=== PATIENT | male | born 1935 | race Caucasian/White ===

== ENCOUNTER → 2017-05-22 17:43 | Outpatient (CLI) | payer MEDICARE, OTHER, SELFPAY | PROVIDERS: Family Provider Family Medicine; PCP Family Medicine; Visit Provider Internal Medicine Pulmonary Disease | DX: J45.909 Unspecified asthma, uncomplicated (principal) | CPT/HCPCS: 87070; 87077; 87186; 87205 ==

== ENCOUNTER → 2017-09-28 14:55 | Outpatient (CLI) | payer MEDICARE, OTHER, SELFPAY ==
[2017-09-28 16:08] LABS: PSA,Total- Diagnostic < 0.01 ng/mL (0.0-4.0)
== END ==
PROVIDERS: Family Provider Family Medicine; PCP Family Medicine
DX: C61 Malignant neoplasm of prostate (principal)
CPT/HCPCS: 36415; 84153

== ENCOUNTER → 2017-10-26 08:32 | Outpatient (CLI) | payer MEDICARE, OTHER, SELFPAY ==
[2017-10-26 10:23] LABS: Anion Gap 8 (5-15); BUN 28 mg/dL (7-18); BUN/Creat Ratio 25.2 RATIO (10-20); Calcium,Total 8.5 mg/dL (8.5-10.1); Chloride 108 mmol/L (98-107); Cholesterol 174 mg/dL (200); Creatinine, Serum 1.11 mg/dL (0.70-1.30); EST Glomerular Filtration Rate 67 mL/min (>60); Est Glom Filt Rate - Afr Amer 82 mL/min (>60); Glucose 89 mg/dL (74-106); High Density Lipoprotein 66 mg/dL; Potassium 4.4 mmol/L (3.5-5.1); Sodium Level 140 mmol/L (136-145); Triglycerides 87 mg/dL; Very Low Density Lipoprotein 17 mg/dL (5-40)
== END ==
PROVIDERS: Family Provider Family Medicine; PCP Family Medicine; Visit Provider Family Medicine
DX: I10 Essential (primary) hypertension (principal)
CPT/HCPCS: 36415; 80048; 80061

== ENCOUNTER → 2018-04-25 09:07 | Outpatient (CLI) | payer MEDICARE, OTHER, SELFPAY ==
[2018-03-21 16:05] VITALS: BMI 31.0
[2018-04-25 10:40] LABS: Anion Gap 7 (5-15); BUN 20 mg/dL (7-18); BUN/Creat Ratio 22.1 RATIO (10-20); Chloride 107 mmol/L (98-107); Cholesterol 149 mg/dL (200); Creatinine, Serum 0.91 mg/dL (0.70-1.30); EST Glomerular Filtration Rate 85 mL/min (>60); Est Glom Filt Rate - Afr Amer 103 mL/min (>60); Glucose 93 mg/dL (74-106); High Density Lipoprotein 63 mg/dL; Potassium 4.5 mmol/L (3.5-5.1); Sodium Level 139 mmol/L (136-145); Triglycerides 172 mg/dL; Very Low Density Lipoprotein 34 mg/dL (5-40)
--- OUTSIDE RECORDS SUMMARY | 2018-06-30 00:45 | XMS RPT_ITS ---
:1935 Author Organization OHIP Support Name Relationship Address Phone R Unavailable Unavailable Unavailable SLOAT, BROCK Unavailable [address] + [place] [address] R Unavailable Unavailable Unavailable SLOAT, BROCK Unavailable [address] + [place] [address] SLOAT, ONDINA Unavailable Unavailable + SLOAT, ONDINA Unavailable Unavailable + SLOAT, ONDINA Unavailable Unavailable + SLOAT, ONDINA Unavailable Unavailable + LAKEISHA KHAN Unavailable Unavailable + SLOAT, ONDINA Unavailable Unavailable + R Unavailable Unavailable Unavailable SLOAT, BROCK Unavailable [address] + [place] [address] R Unavailable Unavailable Unavailable SLOAT, BROCK Unavailable [address] + [place] [address] TR KHANDA Unavailable Unavailable + SLOAT, ONDINA Unavailable Unavailable + R Unavailable Unavailable Unavailable SLOAT, BROCK Unavailable [address] + [place] [address] R Unavailable Unavailable Unavailable SLOAT, BROCK Unavailable [address] + [place] [address] LAKEISHA KHAN Unavailable [address] [facility] [address] [place] [address] R Unavailable Unavailable Unavailable SLOAT, BROCK Unavailable [address] + [place] [address] Care Team Providers Name Role Phone Alin Joyner Attending Unavailable Alin Finley Referring Unavailable Alin Finley Attending Unavailable Alin Finley Primary Care Unavailable Prince Rahman Attending Unavailable Finley, Alin Primary Care Unavailable Erick Bennett Attending Unavailable Finley, Alin Referring Unavailable Finley, Alin Primary Care Unavailable Malia, Alin Primary Care Unavailable SHERRIE GUERRA Consulting Unavailable SHERRIE GUERRA Attending Unavailable SHERIRE GUERRA Referring Unavailable Finley, Alin Attending Unavailable Finley, Alin Primary Care Unavailable Alin Joyner Attending Unavailable Finley, Alin Referring Unavailable Finley, Alin Primary Care Unavailable Portillo, Dr. Hakan Caldwell Attending Unavailable Finley, Dr. Alin Morrison Primary Care Unavailable Love, Dr. Hazel Admitting Unavailable Love, Dr. Hazel Attending Unavailable Love, Dr. Hazel Referring Unavailable Finley, Dr. Alin Morrison Primary Care Unavailable Love, Dr. Hazel Admitting Unavailable Love, Dr. Hazel Referring Unavailable Finley, Dr. Alin Morrison Primary Care Unavailable Tomaro, Xiao Cobb Attending Unavailable Tomaro, Xiao Cobb Attending Unavailable Finley, Dr. Alin Morrison Primary Care Unavailable PROBLEMS PROBLEMS DATE TYPE CONDITION / CODE ATTENDING STATUS SOURCE 01/09/2018 Admitting Malignant neoplasm Tomaro, Ms. Active [facility] diagnosis of bladder, [facility] unspecified / Repository C67.9(ICD-10) 01/09/2018 Admitting Other nonspecific Tomaro, Ms. Active [facility] diagnosis abnormal finding [facility] of lung field / Repository R91.8(ICD-10) 01/09/2018 Final diagnosis Other nonspecific Tomaro, Ms. Active [facility] (discharge) abnormal finding [facility] of lung field / Repository R91.8(ICD-10) 01/09/2018 Final diagnosis Malignant neoplasm Tomaro, Ms. Active [facility] (discharge) of prostate / [facility] C61(ICD-10) Repository 01/09/2018 Final diagnosis Malignant neoplasm Tomaro, Ms. Active [facility] (discharge) of unsp part of [facility] left bronchus or Repository lung / C34.92(ICD-10) 01/09/2018 Final diagnosis Malignant neoplasm Tomaro, Ms. Active [facility] (discharge) of bladder, [facility] unspecified / Repository C67.9(ICD-10) 11/02/2017 Unknown I10 - Essential Alin Joyner Active [place] (primary) Community hypertension / Hospital I10(ICD-10) Repository 11/02/2017 Unknown E78.5 - Alin Joyner Active [place] Hyperlipidemia, Community unspecified / Hospital E78.5(ICD-10) Repository 11/02/2017 Unknown R07.9 - Chest MoodispaAlin chavez Active [place] pain, unspecified Community / R07.9(ICD-10) Hospital Repository 11/02/2017 Unknown I34.1 - MoodispaAlin chavez Active [place] Nonrheumatic [facility] mitral (valve) Hospital prolapse / Repository I34.1(ICD-10) 11/02/2017 Unknown R00.1 - MoodispaAlin chavez Active [place] Bradycardia, [facility] unspecified / Hospital R00.1(ICD-10) Repository 10/12/2017 Final diagnosis History of falling [facility] (discharge) / Z91.81(ICD-10) [facility] Repository 10/12/2017 Final diagnosis Dizziness and [facility] (discharge) giddiness / [facility] R42(ICD-10) Repository 12/07/2017 Unknown C61 - Malignant SHERRIE GUERRA Active [place] neoplasm of [facility] prostate / Hospital C61(ICD-10) Repository PROCEDURES PROCEDURES No Procedure Records FoundRESULTS RESULTS BASIC METABOLIC Collected: 04/25/2018 Status: F Source: HEID[place] PROFILE (BMP) 9:15 AM [facility] REPOSITORY TYPE CODE TESTS RESULT OUT OF RANGE REFERENCE UNITS LAB L501.0100 74-106 mg/dL Normal GLU 93 Result Comment: Please note revised GLUCOSE reference range effective 2017. LAB L501.1000 7-18 mg/dL High BUN 20 LAB L501.1100 0.70-1.30 mg/dL Normal CREAT,SERUM 0.91 Result Comment: The validity of the calculated GFR AND GFRAA in patients over 70 years has not been determined. Clinical correlation is essential. LAB L501.1110 >60 mL/min Normal EST GFR 85 Result Comment: Non- GFR Calc LAB L501.1115 >60 mL/min Normal EST GFR - AA 103 Result Comment: GFR Calc LAB L501.1300 10-20 RATIO High BUN/CRE 22.1 LAB L501.2200 8.5-10.1 mg/dL CA Normal 9.0 LAB L501.5300 136-145 mmol/L NA Normal 139 LAB L501.5600 3.5-5.1 mmol/L K Normal 4.5 LAB L501.5900 98-107 mmol/L CL Normal 107 LAB L501.6100 21.0-32.0 mmol/L Normal CO2 25.0 LAB L501.6200 5-15 Normal GAP 7 Performed By: #### L500.2500, L500.4100 #### [facility] [address] [place], [address] LIPID PROFILE Collected: 04/25/2018 Status: F Source: [place] 9:15 AM [facility] REPOSITORY TYPE CODE TESTS RESULT OUT OF RANGE REFERENCE UNITS LAB L501.4900 200 mg/dL Normal CHOL 149 Result Comment: <200 mg/dL Desirable 200-240 mg/dL Borderline >240 mg/dL High Risk LAB L501.5000 mg/dL Normal TRIG 172 Result Comment: The drugs N-Acetylcysteine and Metamizole may falsely depress this assay. Serum Triglycerides Reference Interval Normal <150 mg/dL Borderline high 150 - 199 mg/dL High 200 - 499 mg/dL Very High > or = 500 mg/dL LAB L501.6400 mg/dL Normal HDL 63 Result Comment: The drugs N-Acetylcysteine and Metamizole may falsely depress this assay. Reference Range HDL <40 mg/dL Low HDL Cholesterol HDL >or= 60 mg/dL High HDL Cholesterol LAB L501.6500 0-130 mg/dL Normal LDL 52 LAB L501.6600 5-40 mg/dL Normal VLDL 34 Performed By: #### L500.2500, L500.4100 #### [facility] [address] [place], [address] CARDIOLOGY VISIT Observed: 03/21/2018 Status: F Source: [place] REPORT 4:51 PM [facility] REPOSITORY [facility] [address] [place] [address] OFFICE VISIT Date of Service: 03/21/18 MR#: [id number] Acct: [id number] Name: ROULA KHAN Rep #: [id number] : 1935 Provider: Alin Joyner MD Age/Sex: 82/M Location: [facility] Status: Signed HPI HPI Details: ROULA KHAN, is a 82 M who presents to the office today for outpatient cardiovascular follow-up. Overall from a cardiac standpoint he states he is doing well. He denies any ongoing issues of classic angina pectoris and has had no obvious issues of CHF or pulmonary edema. There has been no near syncope or syncope. He has not required any additional cardiovascular diagnostic studies or therapeutic procedures. He states he is working with a chiropractor for his spinal related issues. He notes through their office he is also going through a generalized good health program Intake Vital Signs03/21/18 Height 5 ft 9 in 03/21/18 Weight: 210 lb 03/21/18 Body Mass Index (BMI) 31.0 03/21/18 Blood Pressure 120/60 Intake Visit Reasons: 10 mo f/u Allergies Penicillins Allergy (Verified 03/21/18 16:06) Unknown Medications Cholecalciferol (Vitamin D3) [Vitamin D3] 1 tab PO DAILY 01/26/16 [History Confirmed 03/21/18] Cyanocobalamin (Vitamin B-12) [Vitamin B-12] 1,000 mcg PO DAILY 01/26/16 [History Confirmed 03/21/18] Pantoprazole Sodium [Protonix] 40 mg PO DAILY 01/26/16 [History Confirmed 03/21/18] Simvastatin [Zocor] 40 mg PO QHS 01/26/16 [History Confirmed 03/21/18] Vitamin B Complex 1 ea PO DAILY 01/26/16 [History Confirmed 03/21/18] fluticasone 200 mcg-vilanterol 25 mcg/dose powder for inhalation 1 inh INHALATION QDAY 06/02/17 [History Confirmed 03/21/18] lactobacillus combination no.8 3 billion cell capsule 3,000 mmu cells PO QDAY 06/02/17 [History Confirmed 03/21/18] multivitamin tablet 1 tab PO QDAY 06/02/17 [History Confirmed 03/21/18] sertraline 50 mg tablet 100 mg PO DAILY tab 06/02/17 [History Confirmed 03/21/18] carvedilol 3.125 mg tablet 3.125 mg PO BID #180 tab 01/22/18 [Rx Confirmed 03/21/18] cinnamon bark 500 mg capsule 1,000 mg PO BID cap 03/21/18 [History Confirmed 03/21/18] cod liver oil capsule 1 cap PO DAILY 03/21/18 [History Confirmed 03/21/18] losartan 50 mg tablet 50 mg PO DAILY 03/21/18 [History Confirmed 03/21/18] PFSH Medical History Essential hypertension (Chronic) Hyperlipidemia (Chronic) Chest pain (Chronic) Nonrheumatic mitral (valve) prolapse (Chronic) Lung cancer (Acute) Hypertension (Inactive) Surgical History History of lobectomy of lung (Resolved) Family History Father Heart disease Mother Colon cancer Social History Smoking Status: Former smoker alcohol intake: never substance use type: does not use ROS Const Const: Negative for fatigue, weakness, weight gain, weight loss, frequent falls or excessive sweating Eyes Eyes: Negative for change in vision, blurry vision or transient loss of vision ENT ENT: Negative for dizziness or balance problems Cardio Chest Pain: No Palpitations: No Edema: None Muscle aches with walking: None Resp Respiratory: Positive for SOB with activity (baseline); negative for SOB at rest Additional Details: Wears CPAP at night GI GI: Negative vomiting or vomiting blood/hematemesis : Negative for hematuria Musc Musc: Negative for balance problems, muscle aches/ myalgia, muscle weakness or joint pain Skin Skin: Negative non-healing lesions or rash Neuro Neuro: Negative for weakness, blurry vision, dizziness, lightheadedness, frequent falls or orthostatic symptoms Mario Hematologic/Lymphatic: Negative for easy bleeding Endo Endo: Negative for fatigue or excessive sweating Psych Psych: Negative for anxiety or depression Allergy Allergy/Immunology: Negative for hives, Negative for rash Cardiology Exam Const Appearance: cooperative, healthy appearing, comfortable, no acute distress, well developed and well groomed Orientation: alert, awake and oriented x3 Head Head: normal to inspection and normocephalic Ears: hearing grossly normal bilaterally Nose: external nose normal Face and Sinus: face symmetric Mouth: oral mucosae normal Eyes Eyelids: eyelids normal Conjunctivae: conjunctivae normal Pupils: PERRL EOM: EOM intact bilaterally Neck Neck: no JVD and normal visual inspection Carotids: normal carotid upstroke Chest Chest inspection: normal inspection of the chest, normal respiratory effort and symmetric chest movement Auscultation: Bilateral: Clear to Auscultation Cardio Rate: regular rate Rhythm: regular rhythm Heart sounds: S1 normal and S2 normal; negative rub or gallop GI GI: normal to inspection, bowel sounds present and soft Neuro General: alert, awake, oriented x3 and moves all extremities Skin Skin: no rashes or lesions noted Extremities Pulses: Normal: Right Posterior Tibial Pulse, Left Posterior Tibial Pulse, Right Radial Pulse, Left Radial Pulse Lower Extremity Edema: None: Bilateral Psych Psychological: normal affect Assessment AND Plan 1. Nonrheumatic mitral (valve) prolapse I34.1 Plan At the present time he appears to be doing well. He will continue to be followed by history, exam, and echocardiogram as deemed appropriate. 2. 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 It has been mild. He will continue risk factor evaluation and care. 3. Mixed hyperlipidemia E78.2 Plan His lipid labs have been evaluated. Per his report on 10/26/2017 his total cholesterol is 174 with an LDL of 91 and an HDL of 66. His triglycerides were 87. His AST and ALT were within normal range. He will continue medical management. 4. Essential hypertension I10 Plan He has blood pressure appears to be well controlled at this time. He will continue his current medical therapy Plan Detail Additional Comments He will be scheduled for an outpatient visit approximately 1 year unless needed sooner. Thank you for allowing me to participate in the care of your patient. Please don't hesitate to call if any issues arise. This note was generated using a voice recognition system and there may be incorrect words, spelling or punctuation that were not noted when reviewing the office note prior to saving. Follow Up 1 Year (PFM) Coding Level of Care Code Off vis,est,level 3 Diagnoses Nonrheumatic mitral (valve) prolapse I34.1 CAD in [place] artery I25.10 Mixed hyperlipidemia E78.2 Hyperlipidemia type: mixed hyperlipidemia Essential hypertension I10 Coding Level of Care Code Off vis,est,level 3 Diagnoses Nonrheumatic mitral (valve) prolapse I34.1 CAD in [place] artery I25.10 Mixed hyperlipidemia E78.2 Hyperlipidemia type: mixed hyperlipidemia Essential hypertension I10 03/21/18 1651 <Electronically signed by Alin Joyner MD> Date Alin Joyner MD Cosigner Signature: Date (if applicable) CC: Alin Finley MD CT CHEST W Observed: 01/09/2018 Status: F Source: [facility]ERS[facility] CONTRAST 12:37 PM [facility] REPOSITORY Patient Name: ROULA KHAN STUDY: CT CHEST W CONTRAST; 01/09/2018 12:37 pm INDICATION: lung cancer [place] LES. COMPARISON: CT chest dated 01/03/2017, CT chest dated 12/24/2015 ACCESSION NUMBER(S): [id number] ORDERING CLINICIAN: SYMONE JEAN TECHNIQUE: Helical data acquisition of the chest was obtained after intravenous administration of 90 ml of Isovue 370. Images were reformatted in axial, coronal, and sagittal planes. FINDINGS: LUNGS AND AIRWAYS: The trachea and central airways are patent. No endobronchial lesion. Postsurgical changes are seen from right upper lobe wedge resection and left lower lobectomy. Postsurgical changes with scarring are seen along the right major fissure. There is stable elevation of the left hemidiaphragm with basilar pleural thickening and scarring at the left lung base. There is again demonstration of traction bronchiectasis. A cystic bullous lesion is seen in the upper aspect of the right lower lobe measuring 2.4 cm. There is interval appearance of new areas of mixed ground- glass and subsolid opacities seen in the lateral left upper lobe on axial image 109/314 and lateral right lower lobe on axial images 203 and 235/314. There are few scattered subcentimeter pulmonary nodules, some of which are calcified. For example: -right middle lobe mm calcified nodule on axial image 175/314. -right lower lobe pleural-based 4 mm nodular density on axial image 222/314. -right lower lobe calcified pulmonary nodule on axial image 210/314. -right lower lobe pulmonary nodule measuring 2 mm on axial image 179/314. MEDIASTINUM AND EVELIN, LOWER NECK AND AXILLA: The visualized thyroid gland is within normal limits. No evidence of thoracic lymphadenopathy by CT criteria. Esophagus appears within normal limits as seen. HEART AND VESSELS: The ascending thoracic aorta is mildly ectatic measuring 4 cm in diameter. There are mild scattered atherosclerotic calcifications predominantly in the aortic arch. Main pulmonary artery and its branches are normal in caliber. Mild coronary artery calcifications are seen. The study is not optimized for evaluation of coronary arteries. The cardiac chambers are not enlarged. No evidence of pericardial effusion. UPPER ABDOMEN: The visualized subdiaphragmatic structures demonstrate no remarkable findings. An accessory splenule is present. CHEST WALL AND OSSEOUS STRUCTURES: There are no suspicious osseous lesions. Multilevel degenerative changes are present IMPRESSION: 1. Interval appearance of focal areas of mixed ground-glass and subsolid opacities in the lateral upper lobe and lateral right lower lobe as described. These may represent post inflammatory/infectious changes; correlate with any chemotherapy regimens. Alternatively, neoplastic process cannot be entirely excluded and follow- up CT scan is recommended in 2-3 months to document resolution. 2. Stable postsurgical changes of right upper lobe wedge resection and left lower lobectomy. 3. Stable bilateral calcified and noncalcified pulmonary nodules. 4. Mild ectasia of the ascending thoracic aorta measuring 4 cm in diameter. 5. Mild atherosclerotic calcifications of the coronary arteries. I personally reviewed the images/study and I agree with the findings as stated. This study was interpreted at [facility], [place], [place]. Electronically signed by: Rachell DUARTE MD POCT CREATININE AND Collected: 01/09/2018 Status: F Source: [place] GFR 12:30 PM [facility] REPOSITORY TYPE CODE TESTS RESULT OUT OF REFERENCE UNITS RANGE LAB POCCR(LOIN 0.6 - 1.3 mg/dL C) CREATININE 0.8 LAB POGFR(LOIN >60 C) mL/min/1.73m2 POCT GFR >60 Result Comment: POCT eGFR is intended for Radiology screening purposes only. Performed By: #### PCRGF #### [facility] [address] [place] [address] CLINIC NOTE - HEME Observed: 01/09/2018 Status: UNK Source: [facility] ONC 12:07 PM [facility] REPOSITORY This report has been cancelled. CLINIC NOTE - HEME Observed: 01/09/2018 Status: COMPLETED Source: [place] ONC-FOLLOW UP VISIT 9:43 AM [facility]ITALS REPOSITORY Patient Visit Information: Visit Type: Follow Up Visit Cancer History: Treatment Synopsis: Cancer History 1. 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 2. Recent history of pT1a N0 M0 [id number] lung cancer versus recurrent disease diagnosed September 2011, status post right upper lobe wedge resection. 3. History of stage IB non-small cell-lung cancer, status post left lower lobectomy in April 2008. 4. History of early stage bladder cancer, status post transurethral resection in October 2007. History of Present Illness: Chief Complaint: Follow up for prostate, bladder, and lung cancers Interval History: Mr. Khan is doing well since the of his . He continues to have sinus drainage and + productive cough. He just finished a course of antibiotics and steroids. But he is still bringing up mucus. Mild shortness of breath with exertion unchanged. He is very fatigued. He is asking about a new drug called Prixelin which is used in [place] to help with memory loss. He brought in a local newspaper which had an ad about it. Denies any fevers or chills. Denies any nausea, vomiting or abdominal pain. Denies any chest pain. Denies any blood in the urine or stool. Denies any headaches or double vision. Denies any rash or skin disorder. Denies any numbness or tingling. Denies any joint pain. Review of Systems: Review of Systems: 12 point review of systems otherwise normal or negative unless stated above. Medications and allergies were reviewed. Allergies and Intolerances: Allergies: penicillin: Drug, Unknown, Active Outpatient Medication Profile: * Patient Currently Takes Medications as of 01-Jan-2018 16:23 documented in Structured Notes oxybutynin 5 mg oral tablet: 1 tab(s) orally 2 times a day , Start Date: 12-Jun-2017 oxybutynin 5 mg oral tablet: 1 tab(s) orally 2 times a day , Start Date: 03-Jan-2017 Breo Ellipta 200 mcg-25 mcg/inh inhalation powder: 1 puff(s) inhaled once a day pantoprazole 40 mg oral delayed release tablet: 1 tab(s) orally once a day Cinnamon 500 mg oral capsule: 2 cap(s) orally 2 times a day Diovan 160 mg oral tablet: 1 tab(s) orally once a day simvastatin 40 mg oral tablet: 1 tab(s) orally once a day (at bedtime) Vitamin D3 5000 intl units oral capsule: 1 cap(s) orally once a day Vitamin C 1000 mg oral tablet: 1 tab(s) orally once a day sertraline 50 mg oral tablet: 1 tab(s) orally once a day Vitamin B-12 1000 mcg oral tablet: 1 tab(s) orally once a day carvedilol 3.125 mg oral tablet: 1 tab(s) orally 2 times a day Multiple Vitamins oral capsule: orally once a day Medical History: Sleep apnea: Status: Active Bladder cancer: Status: Active Prostate cancer: Status: Active Hyperlipidemia: Status: Active Malignant neoplasm of left lung: Status: Active Family History: No Family History items are recorded in the problem list. Social History: Smoking Status: former smoker (1) Alcohol Use: denies(1) Drug Use: denies (1) Performance: ECOG Performance Status: 1- Restricted from physically stenuous work Vitals and Measurements: Vitals: Temp: 36.8 HR: 57 RR: 18 BP: 135/51 SPO2%: 99 Measurements: HT(cm): 172.7 WT(kg): 98 BSA: 2.16 BMI: 32.8 Second Set of Vitals/Vitals Comment: 100/52 Last 3 Weights & Heights: Date: Weight/Scale Type:Height: 09-Jan-2018 09:3698 kg / standing [id number] cm Physical Exam: Constitutional: Well developed, awake/alert/oriented x3, no distress, alert and cooperative Eyes: PERRL, EOMI, clear sclera ENMT: mucous membranes moist, no apparent injury, no lesions seen Head/Neck: Neck supple, no apparent injury, thyroid without mass or tenderness, No JVD, trachea midline Respiratory/Thorax: Patent airways, CTAB, normal breath sounds with good chest expansion, thorax symmetric Cardiovascular: Regular, rate and rhythm, no murmurs, normal S 1and S 2 Gastrointestinal: Nondistended, soft, non-tender, no rebound tenderness or guarding, no masses palpable, no organomegaly, Musculoskeletal: ROM intact, no joint swelling, normal strength Extremities: normal extremities, no cyanosis edema, contusions or wounds, no clubbing Neurological: alert and oriented x3, intact senses, normal strength Lymphatic: No significant lymphadenopathy Psychological: Appropriate mood and behavior Skin: Warm and dry, no lesions, no rashes Lab Results: Results CBC date/time WBC HGB HCT PLT Neut 09-Jan-2018 08:40 10.2 11.2(L) 34.4(L) 132(L) 6.96(H) 03-Jan-2017 09:21 6.1 11.7(L) 35.1(L) 119(L) N/A 24-Dec-2015 12:50 3.1(L) 10.7(L) 32.3(L) 161 1.66 BMP date/time NA K CL CO2 BUN CREAT 03-Jan-2017 09:52 139 5.1 106 N/A 21 0.99 24-Dec-2015 12:50 139 4.9 106 N/A 28(H) 1.08 11-Mar-2013 12:28 139 4.9 107 N/A 21 0.97 Hepatic date/time T Pro T Bili AST ALT ALKP ALB 19-Oct-2010 15:03 7.2 0.6 14 24 74 3.6 19-Jul-2010 10:13 7.1 0.6 20 23 73 3.7 23-Nov-2009 10:30 7.0 0.6 20 28 73 3.4 LDH date/time LDH 30-Sep-2011 03:35 N/A 29-Sep-2011 17:18 N/A 04-Aug-2008 16:04 N/A I have reviewed these laboratory results: Iron + TIBC, Serum 09-Jan-2018 08:40:00 ResultValue Iron, Serum 87 Total Iron Binding Capacity 298 % Saturation 29 Prostate Specific Antigen 09-Jan-2018 08:40:00 ResultValue Prostate Specific Antigen <0.10 Testosterone, Level 09-Jan-2018 08:40:00 ResultValue Testosterone, Level 49 L Ferritin, Serum 09-Jan-2018 08:40:00 ResultValue Ferritin, Serum 331 H Radiology Result: Results Impression: 1. Interval appearance of focal areas of mixed ground-glass and subsolid opacities in the lateral upper lobe and lateral right lower lobe as described. These may represent post inflammatory/infectious changes; correlate with any chemotherapy regimens. Alternatively, neoplastic process cannot be entirely excluded and follow- up CT scan is recommended in 2-3 months to document resolution. 2. Stable postsurgical changes of right upper lobe wedge resection and left lower lobectomy. 3. Stable bilateral calcified and noncalcified pulmonary nodules. 4. Mild ectasia of the ascending thoracic aorta measuring 4 cm in diameter. 5. Mild atherosclerotic calcifications of the coronary arteries. CT Chest with Contrast [Jan 13 2018 11:10AM] Assessment and Plan: Assessment and Plan: Assessment: Bladder cancer. Overall going well. October 2016 cystoscopy was unremarkable. Urology wants PCP to follow at this point. Lung cancer. CT scan shows focal areas of mixed ground-glass and subsolid opacities in the lateral upper lobe and lateral right lower lobe. These may represent post inflammatory/infectious changes - asked pt to follow up with ballet dancer based on these results and his symptoms - he will have his annual screening CT chest in one year, labs done prior due to contrast Prostate cancer. PSA <10, testosterone 49. - continue annual surveillance Fatigue - patient has normocytic anemia - iron studies are normal Follow up in [address] and labs done prior to the visit Patient Instructions: Care Team (For informational use or entering new Care Team Members): Prince Rahman V(Specialist): , 20-Jan-2018 19:38 Note Recipients: Alin Finley MD - [id number] [] Prince Rahman MD - [id number] [] MI RICHARDSON - [phone] [] Select Yes when ready to send to Provider(s) Listed Above: Note sent to providers named above Attestation: Visit Level: Counseling & Coordination of Care: more than 50% of total time Electronic Signatures: Symone Jean (CHILDRENS CLUB ATTENDANT-MUFFLER MECHANIC) (Signed 20-Jan-2018 19:41) Authored: Patient Visit Information, Cancer History, History of Present Illness, Review of Systems, Allergies and Outpatient Medication Profile, Problem List, Social History, Performance Assessments, Vitals and Measurements, Physical Exam, Results, Assessment and Plan, Patient Instructions, To Send Document via Auto Fax, Attestation Last Updated: 20-Jan-2018 19:41 by Symone Jean (CHILDRENS CLUB ATTENDANT-MUFFLER MECHANIC) References: 1. Data Referenced From Clinic Note - Rad Onc-Follow Up Visit 10/12/2017 1:41 PM CLINIC NOTE - Observed: 01/09/2018 Status: UNK Source: [facility] 9:36 AM [facility]OSPITALS REPOSITORY Patient Visit Information: Visit TypeFollow Up Visit Source of Informationpatient Vital Signs: Temp (degrees C)36.8 degrees C Temperaturetympanic Heart Rate (beats/min)57 beats per minute Respiration (breaths/min)18 breath per minute BP Systolic (mm Hg)135 mmHg BP Diastolic (mm Hg)Image has been removed. 51 mmHg BP Mean (mm Hg)79 mmHg Height in cm172.7 centimeter(s) Height Methodmeasured Heightstanding Weight in kg98 kilogram(s) Weight Methodstanding scale BMI (kg/m2)32.8 BSA (m2)2.16 SpO2 (%)99 % SpO2 Patient Onroom air Pain Screening: Patient States Painno (0) Allergies: penicillin: Drug, Unknown, Active Outpatient Medication Profile: * Patient Currently Takes Medications as of 01-Jan-2018 16:23 documented in Structured Notes oxybutynin 5 mg oral tablet: 1 tab(s) orally 2 times a day , Start Date: 12-Jun-2017 oxybutynin 5 mg oral tablet: 1 tab(s) orally 2 times a day , Start Date: 03-Jan-2017 Breo Ellipta 200 mcg-25 mcg/inh inhalation powder: 1 puff(s) inhaled once a day pantoprazole 40 mg oral delayed release tablet: 1 tab(s) orally once a day Cinnamon 500 mg oral capsule: 2 cap(s) orally 2 times a day Diovan 160 mg oral tablet: 1 tab(s) orally once a day simvastatin 40 mg oral tablet: 1 tab(s) orally once a day (at bedtime) Vitamin D3 5000 intl units oral capsule: 1 cap(s) orally once a day Vitamin C 1000 mg oral tablet: 1 tab(s) orally once a day sertraline 50 mg oral tablet: 1 tab(s) orally once a day Vitamin B-12 1000 mcg oral tablet: 1 tab(s) orally once a day carvedilol 3.125 mg oral tablet: 1 tab(s) orally 2 times a day Multiple Vitamins oral capsule: orally once a day Notification: NotificationsAll annual screens currently due. Falls: Have you fallen in the last 6 monthsyes Why have you fallenlight headed Did you have a fall with injuryno Do you have a fear of fallingno Do you feel you need assistanceno Is the patient using an assistive deviceno Violence: Do you feel UNSAFE going back to the place you are livingno Are you or have you been threatened or abused physically,emotionally or sexually abused by anyoneno Depression: 1) During the past 2 wks, have you felt down, depressed or hopelessno 4) Have you had thoughts of harming anyone elseno 2) During the past 2 wks, have you felt little interest/pleasure doing things no 3) Have you had thoughts of harming yourselfno Substance: How many times in the past year have you hd 5 or more drinks within 24 hours0 How many times in past year have you used recreational or prescription drugs for non-medical reasons0 Nutrition/Learning: In the past month, was there any day when you or anyone in your family went hungry because you didn't have enough foodno Primary LanguageEnglish Do you, or others today, need extra help due to problems with hearing,speaking, seeing, moving around or learningno Electronic Signatures: Maria Weston) (Signed 09-Jan-2018 09:39) Authored: Patient Visit Information, Vital Signs, Allergies, Outpatient Medication Profile, Adult Admission Risk Screen Last Updated: 09-Jan-2018 09:39 by Maria Weston) CBC AND DIFFERENTIAL Collected: 01/09/2018 Status: F Source: [place] 8:40 AM [facility]OSPITALS REPOSITORY TYPE CODE TESTS RESULT OUT OF REFERENCE UNITS RANGE LAB WBCR(LOINC 4.4 - 11.3 x10E9/L ) WBC 10.2 LAB RBCCT(LOIN 4.50 - 5.90 x10E12/L C) Low RBC 3.62 LAB HGB(LOINC) 13.5 - 17.5 g/dL Low HGB 11.2 LAB HCT(LOINC) 41.0 - 52.0 % Low HCT 34.4 LAB MCV(LOINC) 80 - 100 fL MCV 95 LAB MCHC2(LOIN 32.0 - 36.0 g/dL C) MCHC 32.6 LAB PLTCT(LOIN 150 - 450 x10E9/L C) Low PLT 132 LAB RDWCV(LOIN 11.5 - 14.5 % C) RDW-CV 13.0 LAB NEUT(LOINC 40.0 - 80.0 % ) % NEUTROPHIL 68.3 LAB IG(LOINC) 0.0 - 0.9 % % AUTOMATED 1.9 IMMATURE GRAN Result Comment: Percent differential counts (%) should be interpreted in the context of the absolute cell counts (cells/L). LAB LYMPH(LOINC) 13.0 - % 44.0 % LYMPHOCYTE 16.1 LAB MONO(LOINC) 2.0 - 10.0 % % MONOCYTE 13.3 LAB EOS(LOINC) 0.0 - 6.0 % % EOSINOPHIL 0.3 LAB BASO(LOINC) 0.0 - 2.0 % % BASOPHIL 0.1 LAB #NEUT(LOINC) 1.60 - x10E9/L 5.50 NEUTROPHIL High 6.96 LAB #LYMP(LOINC) 0.80 - x10E9/L 3.00 LYMPHOCYTE 1.64 LAB #MONO(LOINC) 0.05 - x10E9/L 0.80 MONOCYTE High 1.35 LAB #EOS(LOINC) 0.00 - x10E9/L 0.40 EOSINOPHIL 0.03 LAB #BASO(LOINC) 0.00 - x10E9/L 0.10 BASOPHIL 0.01 Performed By: #### CBCDF #### [facility] [id number] [place] [id number] FERRITIN Collected: 01/09/2018 Status: F Source: [place] 8:40 AM HOSPITALS REPOSITORY TYPE CODE TESTS RESULT OUT OF REFERENCE UNITS RANGE LAB FILIBERTO(LOINC 20 - 300 ug/L ) High FERRITIN 331 Performed By: #### FILIBERTO #### [facility] [id number] [facility] [place] [id number] COMPREHENSIVE PANEL Collected: 01/09/2018 Status: F Source: [place] 8:40 AM HOSPITALS REPOSITORY TYPE CODE TESTS RESULT OUT OF RANGE REFERENCE UNITS LAB GLU(LOINC) 74 - 99 mg/dL High GLUCOSE 161 LAB SOD(LOINC) 136 - 145 mmol/L SODIUM 140 LAB K(LOINC) 3.5 - 5.3 mmol/L POTASSIUM 4.9 LAB CHLOR(LOIN 98 - 107 mmol/L C) CHLORIDE 105 LAB BIC(LOINC) 21 - 32 mmol/L BICARBONATE 25 LAB ANGAP(LOIN 10 - 20 mmol/L C) ANION GAP 15 LAB UREA(LOINC 6 - 23 mg/dL ) High UREA NITROGEN 27 LAB CREA(LOINC 0.50 - 1.30 mg/dL ) CREATININE 1.20 LAB GFRFN(LOIN >60 mL/min/1.7 C) 3m2 GFR-NON Abnormal AM. 58 LAB GFRAA(LOIN >60 mL/min/1.7 C) 3m2 GFR- AM. 70 Result Comment: CALCULATIONS OF ESTIMATED GFR ARE PERFORMED USING THE MDRD STUDY EQUATION FOR THE IDMS-TRACEABLE CREATININE METHODS. CLIN CHEM 2007;53:766-72 LAB CA(LOINC) 8.6 - 10.6 mg/dL CALCIUM 9.5 LAB ALB(LOINC) 3.4 - 5.0 g/dL ALBUMIN 3.7 LAB AP(LOINC) 33 - 136 U/L ALKALINE PHOSPHATASE 70 LAB TP(LOINC) 6.4 - 8.2 g/dL TOTAL PROTEIN Low 6.3 LAB AST(LOINC) 9 - 39 U/L AST 18 LAB TBILI(LOINC) 0.0 - 1.2 mg/dL BILIRUBIN,TOTAL 0.5 LAB ALT(LOINC) 10 - 52 U/L ALT 16 Result Comment: Patients treated with Sulfasalazine may generate falsely decreased results for ALT. Performed By: #### CMP #### [facility] [id number] [place] [address] IRON + TIBC Collected: 01/09/2018 Status: F Source: [place] 8:[address] [facility] REPOSITORY TYPE CODE TESTS RESULT OUT OF REFERENCE UNITS RANGE LAB IRON(LOINC 35 - 150 ug/dL ) IRON 87 LAB TIBC(LOINC 240 - 445 ug/dL ) TIBC 298 LAB %SAT(LOINC 25 - 45 % ) % SATURATION 29 Performed By: #### IRONT #### [facility] [id number] [place] [address] PROSTATE SPECIFIC AG Collected: 01/09/2018 Status: F Source: [place] 8:40 [facility] REPOSITORY TYPE CODE TESTS RESULT OUT OF REFERENCE UNITS RANGE LAB PSA(LOINC) 0.00 - 4.00 ng/mL PROSTATE <0.10 SPECIFIC AG Result Comment: The FDA requires that the method used for PSA assay be reported to the physician. Values obtained with different assay methods must not be used interchangeably. uses the ADVIA Centaur PSA method, which is a sandwich immunoassay using chemiluminescence for quantitation. The assay is approved for measurement of prostate-specific antigen (PSA) in serum and may be used in conjunction with a digital rectal examination in men 50 years and older as an aid in detection of prostate cancer. Performed By: #### PSA #### [facility] [address] [place] [address] TESTOSTERONE Collected: 01/09/2018 Status: F Source: [place] 8:40 AM HOSPITALS REPOSITORY TYPE CODE TESTS RESULT OUT OF REFERENCE UNITS RANGE LAB TEST(LOINC 240 - 1000 ng/dL ) Low TESTOSTERONE 49 Result Comment: Nandrolone decanoate, 11 Beta-hydroxytestosterone, and 67-[id number]-[id number] strongly cross react with this test method. Patients receiving more than 5 mg/day of biotin may have interference in test results. A sample should be taken no sooner than eight hours after previous dose. Contact [phone] for additional information. Performed By: #### TEST #### [facility] [address] [place] [address] BASIC METABOLIC Collected: 10/26/2017 Status: F Source: [place] PROFILE (BMP) 8:35 AM [facility] REPOSITORY TYPE CODE TESTS RESULT OUT OF RANGE REFERENCE UNITS LAB L501.0100 74-106 mg/dL Normal GLU 89 Result Comment: Please note revised GLUCOSE reference range effective 2017. LAB L501.1000 7-18 mg/dL High BUN 28 LAB L501.1100 0.70-1.30 mg/dL Normal CREAT,SERUM 1.11 Result Comment: The validity of the calculated GFR AND GFRAA in patients over 70 years has not been determined. Clinical correlation is essential. LAB L501.1110 >60 mL/min Normal EST GFR 67 Result Comment: Non- GFR Calc LAB L501.1115 >60 mL/min Normal EST GFR - AA 82 Result Comment: GFR Calc LAB L501.1300 10-20 RATIO High BUN/CRE 25.2 LAB L501.2200 8.5-10.1 mg/dL CA Normal 8.5 LAB L501.5300 136-145 mmol/L NA Normal 140 LAB L501.5600 3.5-5.1 mmol/L K Normal 4.4 LAB L501.5900 98-107 mmol/L High CL 108 LAB L501.6100 21.0-32.0 mmol/L Normal CO2 24.0 LAB L501.6200 5-15 Normal GAP 8 Performed By: #### L500.2500, L500.4100 #### [facility] [address] [place], [address] LIPID PROFILE Collected: 10/26/2017 Status: F Source: [place] 8:35 AM [facility] REPOSITORY TYPE CODE TESTS RESULT OUT OF RANGE REFERENCE UNITS LAB L501.4900 200 mg/dL Normal CHOL 174 Result Comment: <200 mg/dL Desirable 200-240 mg/dL Borderline >240 mg/dL High Risk LAB L501.5000 mg/dL Normal TRIG 87 Result Comment: The drugs N-Acetylcysteine and Metamizole may falsely depress this assay. Serum Triglycerides Reference Interval Normal <150 mg/dL Borderline high 150 - 199 mg/dL High 200 - 499 mg/dL Very High > or = 500 mg/dL LAB L501.6400 mg/dL Normal HDL 66 Result Comment: The drugs N-Acetylcysteine and Metamizole may falsely depress this assay. Reference Range HDL <40 mg/dL Low HDL Cholesterol HDL >or= 60 mg/dL High HDL Cholesterol LAB L501.6500 0-130 mg/dL Normal LDL 91 LAB L501.6600 5-40 mg/dL Normal VLDL 17 Performed By: #### L500.2500, L500.4100 #### [facility] [address] [place], [address] CLINIC NOTE - Observed: 10/12/2017 Status: UNK Source: [facility] 1:58 PM HOSPITALS REPOSITORY Patient Visit Information: ? Visit TypeFollow Up Visit ? Patient StatesFollow up visit with Annmarie Noel CNP ? Source of Informationpatient Admission Information: ? Admission Since Last VisitNo Vital Signs: ? Temp (degrees C)35.8 degrees C ? Temperaturetympanic ? Heart Rate (beats/min)51 beats per minute ? Respiration (breaths/min)20 breath per minute ? BP Systolic (mm Hg)119 mmHg ? BP Diastolic (mm Hg)Image has been removed. 48 mmHg ? BP Mean (mm Hg)71 mmHg ? Height in cm172.7 centimeter(s) ? Height Methodstated ? Heightstanding ? Weight in kg96.5 kilogram(s) ? Weight Methodstanding scale ? BMI (kg/m2)32.3 ? BSA (m2)2.15 ? SpO2 (%)98 % ? SpO2 Patient Onroom air Pain Screening: ? Patient States Painno (0) ? Pain Scale UsedNumeric (0-10) ? Currently on a Pain Regimenno ? AIRPLANE REFUELER Notifiedyes Health Screening: ? Colonoscopy Resultsabout a year ago ? Dexa Scan ResultsHas not had one done Allergies: penicillin: Drug, Unknown, Active Outpatient Medication Profile: * Patient Currently Takes Medications as of 12-Oct-2017 14:06 documented in Structured Notes oxybutynin 5 mg oral tablet: Last Dose Taken: , 1 tab(s) orally 2 times a day , Start Date: 12-Jun-2017 oxybutynin 5 mg oral tablet: Last Dose Taken: , 1 tab(s) orally 2 times a day , Start Date: 03-Jan-2017 Breo Ellipta 200 mcg-25 mcg/inh inhalation powder: Last Dose Taken: , 1 puff(s) inhaled once a day pantoprazole 40 mg oral delayed release tablet: Last Dose Taken: , 1 tab(s) orally once a day Cinnamon 500 mg oral capsule: Last Dose Taken: , 2 cap(s) orally 2 times a day Diovan 160 mg oral tablet: Last Dose Taken: , 1 tab(s) orally once a day simvastatin 40 mg oral tablet: Last Dose Taken: , 1 tab(s) orally once a day (at bedtime) Vitamin D3 5000 intl units oral capsule: Last Dose Taken: , 1 cap(s) orally once a day Vitamin C 1000 mg oral tablet: Last Dose Taken: , 1 tab(s) orally once a day sertraline 50 mg oral tablet: Last Dose Taken: , 1 tab(s) orally once a day Vitamin B-12 1000 mcg oral tablet: Last Dose Taken: , 1 tab(s) orally once a day carvedilol 3.125 mg oral tablet: Last Dose Taken: , 1 tab(s) orally 2 times a day Multiple Vitamins oral capsule: Last Dose Taken: , orally once a day Each Visit: Have you fallen in the last 6 months?no Do you have a fear of falling?no Not a falls riskimplement environmental risk factors interventions Is the patient using an assistive deviceno Do you feel you need assistance?no Are there cultural/spiritual/latter day practices/values/needs important for us to know during your visit todayno As compared to my normal intake, I would rate my food intake during the past month as(0) unchanged I have had the following problems that have kept me from eating enough during the past 2 weeks (Check all that apply)(0) no problem eating Activities and function Over the past month, I would generally rate my activity as(0) normal with no limitations Score 6 or > notify clinician0 Height in cm172.7 centimeter(s) Weight in kg96.5 kilogram(s) Clinician notifiedno Electronic Signatures: Annette Arteaga (BRADLEY) (Signed 12-Oct-2017 14:07) Authored: Patient Visit Information, Vital Signs, Health Screening, Allergies, Outpatient Medication Profile, Adult Admission Risk Screen Last Updated: 12-Oct-2017 14:07 by Annette Arteaga (BRADLEY) CLINIC NOTE - Observed: 10/12/2017 Status: UNK Source: [facility]KE 1:58 PM HOSPITALS REPOSITORY Patient Visit Information: ? Visit TypeFollow Up Visit ? Patient StatesFollow up visit with Annmarie Noel CNP ? Source of Informationpatient Admission Information: ? Admission Since Last VisitNo Vital Signs: ? Temp (degrees C)35.8 degrees C ? Temperaturetympanic ? Heart Rate (beats/min)51 beats per minute ? Respiration (breaths/min)20 breath per minute ? BP Systolic (mm Hg)119 mmHg ? BP Diastolic (mm Hg)Image has been removed. 48 mmHg ? BP Mean (mm Hg)71 mmHg ? Height in cm172.7 centimeter(s) ? Height Methodstated ? Heightstanding ? Weight in kg96.5 kilogram(s) ? Weight Methodstanding scale ? BMI (kg/m2)32.3 ? BSA (m2)2.15 ? SpO2 (%)98 % ? SpO2 Patient Onroom air Health Screening: ? Colonoscopy Resultsabout a year ago ? Dexa Scan ResultsHas not had one done Allergies: penicillin: Drug, Unknown, Active Outpatient Medication Profile: * Patient Currently Takes Medications as of 22-Sep-2016 11:06 documented in Structured Notes oxybutynin 5 mg oral tablet: 1 tab(s) orally 2 times a day , Start Date: 12-Jun-2017 oxybutynin 5 mg oral tablet: 1 tab(s) orally once a day , Start Date: 21-Apr-2017 oxybutynin 5 mg oral tablet: 1 tab(s) orally 2 times a day , Start Date: 03-Jan-2017 oxybutynin 5 mg oral tablet: 1 tab(s) orally 2 times a day , Start Date: 22-Sep-2016 pantoprazole 40 mg oral delayed release tablet: 1 tab(s) orally once a day Cinnamon 500 mg oral capsule: 2 cap(s) orally 2 times a day ferrous sulfate 325 mg oral tablet: 1 tab(s) orally 3 times a day Diovan 160 mg oral tablet: 1 tab(s) orally once a day simvastatin 40 mg oral tablet: 1 tab(s) orally once a day (at bedtime) Vitamin D3 5000 intl units oral capsule: 1 cap(s) orally once a day ulimate colon: 2 times a day Vitamin C 1000 mg oral tablet: 1 tab(s) orally once a day sertraline 50 mg oral tablet: 1 tab(s) orally once a day Vitamin B-12 1000 mcg oral tablet: 1 tab(s) orally once a day carvedilol 3.125 mg oral tablet: 1 tab(s) orally 2 times a day liquid oxygen 25 drops BID: Multiple Vitamins oral capsule: orally once a day Electronic Signatures: Annette Arteaga) (Signed 12-Oct-2017 14:08) Authored: Patient Visit Information, Vital Signs, Health Screening, Allergies, Outpatient Medication Profile Last Updated: 12-Oct-2017 14:08 by Annette Arteaga) CLINIC NOTE - RAD Observed: 10/12/2017 Status: COMPLETED Source: [place] ONC-FOLLOW UP VISIT 1:41 PM HOSPITALS REPOSITORY Visit Information: Visit TypeFollow Up Visit Disease GroupAdult Oncology Cancer Staging: Treatment Synopsis: Mr. Khan is a 82-year-old gentleman with a history of: 1. Adenocarcinoma of the prostate, clinical stage T1c N0 M0, group IIB, Charlotte score 8 (4+4), pretreatment prostate-specific antigen of 5.38 ng/mL. He received radiation therapy utilizing external beam to a dose of 45 Gy, followed by prostate interstitial brachytherapy utilizing palladium- 103 for a dose of 100 Gy, implanted on March 09, 2012. He received concurrent androgen deprivation therapy with radiation. 2. 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 3. 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 History of Present Illness: Interval History: Mr. Khan returns today for routine follow up for prostate cancer now over 6 yrs post radiation. He has been in his usual state of health however has had 2 recent falls due to dizziness. No injury except scraping of his right arm. He endorses dizziness sometimes, dry mouth and somnolence. He has continued on oxybutynin BID. DAVID score reported as 0, he is not sexually active. His after a lengthy [place] with a number of chronic illnesses in March. IPSS score is 13 with nocturis 2-5 times per night. He is mostly satisfied with QOL due to urinary symptoms. He sees urology annually for cystoscopy for has hx of TCC of bladder and sees a ballet dancer he sees routinely for COPD. He denies dysuria, hematuria, incontinence, change in bowel habits, or rectal bleeding. He denies cough, SOB or chest pain. No bony pain except chronic low back pain he has had for many years. 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 ? System ReviewAll other systems have been reviewed and are negative for complaint. Allergies and Intolerances: Allergies: penicillin: Drug, Unknown, Active Outpatient Medication Profile: * Patient Currently Takes Medications as of 22-Sep-2016 11:06 documented in Structured Notes oxybutynin 5 mg oral tablet: 1 tab(s) orally 2 times a day , Start Date: 12-Jun-2017 oxybutynin 5 mg oral tablet: 1 tab(s) orally once a day , Start Date: 21-Apr-2017 oxybutynin 5 mg oral tablet: 1 tab(s) orally 2 times a day , Start Date: 03-Jan-2017 oxybutynin 5 mg oral tablet: 1 tab(s) orally 2 times a day , Start Date: 22-Sep-2016 pantoprazole 40 mg oral delayed release tablet: 1 tab(s) orally once a day Cinnamon 500 mg oral capsule: 2 cap(s) orally 2 times a day ferrous sulfate 325 mg oral tablet: 1 tab(s) orally 3 times a day Diovan 160 mg oral tablet: 1 tab(s) orally once a day simvastatin 40 mg oral tablet: 1 tab(s) orally once a day (at bedtime) Vitamin D3 5000 intl units oral capsule: 1 cap(s) orally once a day ulimate colon: 2 times a day Vitamin C 1000 mg oral tablet: 1 tab(s) orally once a day sertraline 50 mg oral tablet: 1 tab(s) orally once a day Vitamin B-12 1000 mcg oral tablet: 1 tab(s) orally once a day carvedilol 3.125 mg oral tablet: 1 tab(s) orally 2 times a day liquid oxygen 25 drops BID: Multiple Vitamins oral capsule: orally once a day Problem List: Medical History: Bladder cancer: Status: Active Prostate cancer: Status: Active Hyperlipidemia: Status: Active Malignant neoplasm of left lung: Status: Active Family History: Family History: No Family History items are recorded in the problem list. Smoking Status: former smoker Alcohol Use: denies Drug Use: denies Performance Status: ECOG Performance Status: 0 Fully Active Vitals and Measurements: Vitals: Temp: 35.8 HR: 51 RR: 20 BP: 119/48 SPO2%: 98 Measurements: HT(cm): 172.7 WT(kg): 96.5 BSA: 2.15 BMI: 32.3 Physical Exam: Constitutional: Well developed, awake/alert/oriented x3, no distress, alert and cooperative; he does seem mildly somnolent; excessive dry mouth Eyes: PERRL, EOMI, clear sclera ENMT: mucous membranes dry, no apparent injury, no lesions seen Head/Neck: Neck supple, no cervical or supraclavicular lymphadenopathy Respiratory/Thorax: Patent airways, CTAB, normal breath sounds with good chest expansion, thorax symmetric Cardiovascular: HR Regular, S1/S2, no murmurs, gallops, or rubs Gastrointestinal: Nondistended, soft, non-tender, no rebound tenderness or guarding, no masses palpable, Genitourinary: ROSAURA deferred today. Neurological: alert and oriented x3; MMSE 28/30; CN II-XII intact. Speech a little slow at times but fluent. Seems to have good recall and memory today. Gait and balance intact, neg Romberg, no pronator drift. Psychological: Appropriate mood and behavior Skin: Warm and dry, no lesions, no rashes Lab Results: Lab Results: ? Results 09/28/17 PSA from [facility], 0.01 ng/mL Assessment and Plan: Assessment and Plan: 82 yo male with Group IIB prostate cancer, high risk, s/p combined modality radiation with ADT now nearly 6 yrs post radiation. He is clinically and biochemically without evidence for recurrence. PSA undetectable. He will continue follow up with urology for bladder cancer surveillance and pulmonology for COPD/lung cancer hx. I will see him for radiation follow up post radiation in 1 yr with PSA prior. I have asked him to discontinue oxybutynin as he has excessive dry mouth and may be contributing to his dizziness and sleepiness. He will call with any concerns. Note Recipients: Alin Finley MD - [id number] Hakan Portillo MD Attestation: Visit Level: Total Time Spent: 25 minute(s) Counseling & Coordination of Care: more than 50% of total time Electronic Signatures: Shayy Noel (CHILDR[employer] ATTENDANT-MUFFLER MECHANIC) (Signed 12-Oct-2017 15:02) Authored: Information and History, Cancer Staging, History of Present Illness, Review of Systems, Allergies and Outpatient Medication Profile, Problem List, Social History, Performance Assessments, Vitals and Measurements, Physical Exam, Results, Assessment and Plan, To Send Document via Auto Fax, Attestation Last Updated: 12-Oct-2017 15:02 by Shayy Noel (CHILDRENS [employer] ATTENDANT-MUFFLER MECHANIC) PSA,TOTAL- DIAGNOSTIC Collected: 2017 Status: F Source: [place] 2:58 PM [facility] REPOSITORY TYPE CODE TESTS RESULT OUT OF RANGE REFERENCE UNITS LAB L501.9940 0.0-4.0 ng/mL PSA, Normal DIAGNOSTIC < 0.01 Result Comment: This test was performed using the TPSA assay method for the [employer] chemistry system. Values obtained with different assay methods cannot be used interchangably. When changing PSA assays in the course of monitoring a patient, additional sequential testing should be carried out to confirm baseline values. Performed By: #### L501.9940 #### [facility] [address] [place], [address] CARDIOLOGY VISIT Observed: 06/02/2017 Status: F Source: HEIDY REPORT 5:03 PM [facility] REPOSITORY [facility] [address] [place] [address] OFFICE VISIT Date of Service: 06/02/17 MR#: [id number] Acct: [id number] Name: ROULA KHAN Rep #: [id number] : 1935 Provider: JOSEPHINE Bennett Age/Sex: 81/M Location: [facility] Status: Signed HPI HPI Details: ROULA KHAN, is a 81 M who presents to the office today for a current vascular outpatient follow-up. Patient has a history of mitral valve disorder, hypertension, hyperlipidemia, and lung carcinoma with right and left lung resections. Pt. denies chest, arm, jaw, or neck discomfort. His exercise tolerance is stable. Pt. denies symptoms of CHF, palpitations, lightheadedness, dizziness, near syncope, or syncopal episodes. Pt. denies edema or claudication issues. Pt. denies orthopnea, PND, fever, chills, blood in urine, blood in stool, myalgia, or unexplainable fatigue. Heart catheterization from January 2016 showed an ejection fraction of 65%, 25% stenosis of distal left main, LAD was intra-graphically normal, LCx is intra-graphically normal, and RCA with mid 25% stenosis. There was also noted to be mild mitral valve prolapse as well as mild to moderate mitral valve stenosis. Based on the results medical management was recommended. Intake Vital Signs06/02/17 Height 5 ft 9 in 06/02/17 Weight: 210 lb 8 oz 06/02/17 Body Mass Index (BMI) 31.1 06/02/17 Blood Pressure 108/56 Intake Visit Reasons: 6 M FU Allergies Penicillins Allergy (Verified 06/02/17 15:21) Unknown Medications Cholecalciferol (Vitamin D3) [Vitamin D3] 1 tab PO DAILY 01/26/16 [History Confirmed 06/02/17] Cyanocobalamin (Vitamin B-12) [Vitamin B-12] 1,000 mcg PO DAILY 01/26/16 [History Confirmed 06/02/17] Pantoprazole Sodium [Protonix] 40 mg PO DAILY 01/26/16 [History Confirmed 06/02/17] Simvastatin [Zocor] 40 mg PO QHS 01/26/16 [History Confirmed 06/02/17] Valsartan [Diovan] 160 mg PO DAILY 01/26/16 [History Confirmed 06/02/17] Vitamin B Complex 1 ea PO DAILY 01/26/16 [History Confirmed 05/03/17] carvedilol 3.125 mg tablet 3.125 mg PO BID 05/03/17 [History Confirmed 06/02/17] oxybutynin chloride 5 mg tablet 5 mg PO BID 05/03/17 [History Confirmed 06/02/17] fluticasone 200 mcg-vilanterol 25 mcg/dose powder for inhalation 1 inh INHALATION QDAY 06/02/17 [History Confirmed 06/02/17] lactobacillus combination no.8 3 billion cell capsule 3,000 mmu cells PO QDAY 06/02/17 [History Confirmed 06/02/17] multivitamin tablet 1 tab PO QDAY 06/02/17 [History Confirmed 06/02/17] sertraline 50 mg tablet 100 mg PO DAILY tab 06/02/17 [History Confirmed 06/02/17] Ejection fraction %: 60 to 64 PFSH Surgical History History of lobectomy of lung (Resolved) Family History Father Heart disease Mother Colon cancer Social History Smoking Status: Former smoker alcohol intake: never substance use type: does not use ROS Const Const: Positive for fatigue (patient recovering from the flu); negative for weakness, weight gain, weight loss, frequent falls or excessive sweating Eyes Eyes: Negative for change in vision, blurry vision or transient loss of vision ENT ENT: Positive for balance problems (occasional); negative for dizziness Cardio Chest Pain: No Palpitations: Positive for No Edema: None Muscle aches with walking: None Resp Respiratory: Positive for SOB with activity (baseline); negative for SOB at rest Additional Details: Patient has productive cough with white sputum. Currently recovering from the flu. GI GI: Negative vomiting or vomiting blood/hematemesis : Negative for hematuria Musc Musc: Positive for balance problems (occasional) and muscle aches/ myalgia (rt hip, arthritis); negative for muscle weakness or joint pain Skin Skin: Negative non-healing lesions or rash Neuro Neuro: Negative for lightheadedness, orthostatic symptoms, weakness, frequent falls, blurry vision or dizziness Mario Hematologic/Lymphatic: Negative for easy bleeding Endo Endo: Positive for fatigue (patient recovering from the flu); negative for excessive sweating Psych Psych: Negative for anxiety or depression Allergy Allergy/Immunology: Negative for hives, Negative for rash Cardiology Exam Const Appearance: cooperative, healthy appearing, comfortable and no acute distress Orientation: alert, awake and oriented x3 Head Head: normal to inspection Mouth: oral mucosae normal Neck Neck: no JVD and normal visual inspection Carotids: normal carotid upstroke Chest Chest inspection: normal inspection of the chest and normal respiratory effort Auscultation: Bilateral: Clear to Auscultation Cardio Rate: regular rate Rhythm: regular rhythm Heart sounds: S1 normal and S2 normal; negative rub or gallop GI GI: normal to inspection Neuro General: alert, awake, oriented x3 and CN's II-XI intact bilaterally Skin Skin: no rashes or lesions noted Extremities Pulses: Normal: Right Posterior Tibial Pulse, Left Posterior Tibial Pulse, Right Radial Pulse, Left Radial Pulse Lower Extremity Edema: None: Bilateral Psych Psychological: normal affect Assessment AND Plan 1. Nonrheumatic mitral (valve) prolapse I34.1 Plan - EVELIO Nelson Echocardiogram January 2016 showed an estimated ejection fraction of 60%, mildly enlarged left atrium, and mild mitral valve prolapse. Patient denies any shortness of breath or lower extremity pedal edema. His activity level has remained stable. We will continue to monitor his through history, exam, repeat echocardiogram as needed. 2. Essential hypertension I10 Plan - EVELIO Nelson Patient's blood pressure is well-controlled today in the office. We will continue to monitor this. We will not make any medication regimen changes. 3. Mixed hyperlipidemia E78.2 Plan - EVELIO Nelson Laboratory Tests Triglycerides 101 Cholesterol 157 LDL Cholesterol 76 HDL Cholesterol 61 Patient continue current cholesterol lowering medication. Patient Instructions - EVELIO Nelson Discussed the above patient with Dr. Joyner, he agrees with the plan of care. Thank you for allowing us to participate in the patients plan of care, if you have any questions please do not hesitate to call. This note was generated using a voice recognition system and there may be incorrect words, spelling or punctuation that were not noted when reviewing the office note prior to saving. Plan Detail Other Medications New: Discontinued: Follow Up 10 Months (PFM) Coding Level of Care Code Off vis,est,level 3 Diagnoses Nonrheumatic mitral (valve) prolapse I34.1 Essential hypertension I10 Hypertension type: essential hypertension Mixed hyperlipidemia E78.2 Hyperlipidemia type: mixed hyperlipidemia Coding Level of Care Code Off vis,est,level 3 Diagnoses Nonrheumatic mitral (valve) prolapse I34.1 Essential hypertension I10 Hypertension type: essential hypertension Mixed hyperlipidemia E78.2 Hyperlipidemia type: mixed hyperlipidemia 06/02/17 1632 <Electronically signed by Erick Bennett AIRPLANE REFUELER-C> Date Erick Seamus Sabrina [employer]PLANE REFUELER-C 06/02/17 1703<Electronically signed by Alin Joyner MD> Cosigner Signature: Date (if applicable) Alin Joyner MD CC: Alin Finley MD Observed: 05/22/2017 Status: F Source: [place] CULTURE, SPUTUM 12:00 AM [facility] REPOSITORY Gram Stain Acceptable Specimen? Yes (<25 Epithelial cells per/lpf) Gram Stain 2+ White Blood Cells Rare Epithelial cells 3+ Gram positive cocci Resp. Culture ORGANISM 1: Staphylococcus aureus Amount Growth 3+ Staphylococcus aureus: REACTION Benzylpenicillin NF 0.25 R Cefoxitin *NF - Clindamycin $$ <=0.25 S Inducable Clindamycin Resistan - Erythromycin $ >=8 R Gentamicin $ <=0.5 S Levofloxacin $ <=0.12 S Linezolid $$$$ 2 S Moxifloxicin *NF <=0.25 S Oxacillin NF <=0.25 S Tigecycline $$$$ <=0.12 S Rifampin $$ <=0.5 S Tetracycline NF <=1 S Trimethoprim/Sulfametho $ <=10 S Vancomycin $ 1 S (NF) indicates non-formulary drug at [facility]. Approval by Infectious Disease Specialist required before non-formulary drugs may be ordered and/or dispensed. * CLSI guidelines does not recommend testing of cephalosporins. This interpretation is deduced from Beta-lactam/penicillin results. Performed By: #### M100.0800 #### [facility] [address] [place], [address] ALLERGIES ALLERGIES DATE TYPE / CODE NAME / CODE REACTION SEVERITY SOURCE 03/21/2018 Drug Penicillins/ Unknown Unknown [facility] Allergy/4160 [id number](R Hospital 46238(SNOMED XNORM) Repository CT) ENCOUNTERS ENCOUNTERS ADMIT/DISCHARGE ACCOUNT ADMITTING ENCOUNTER LOCATION SOURCE NUMBER CLASS 04/25/2018 [id number] [facility] ing:MFPLAB Repository 03/21/2018/03/21/20 [id number] Ambulatory BMSBuilding:B [place] [address] [place] Repository 01/09/2018 [id number] Ambulatory [facility] Repository 01/09/[id number] [facility] Amb[facility] Repository 01/02/[id number] [facility] Repository 11/01/2017/11/02/19 [id number] Ambulatory BMSBuilding:B [place] [address] [place] Repository 10/26/2017 [id number] [facility] ing:MFPLAB Repository 10/12/2017 [id number] Ambulatory [facility] Repository 2017 [id number] [facility] ing:MFPLAB Repository 06/02/2017/06/02/19 [id number] Ambulatory BMSBuilding:B [place] [address] [place] Repository 05/22/2017 [id number] [facility] ing:LAB Repository PAYERS PAYERS ENCOUNTER GUARANTOR PAYER SUBSCRIBER SOURCE 04/25/2018 ROULA D Primary ROULA D [place] [id number] Insurance:MEDICARE MILLERDOB: [facility] PART A [facility] [id number] Hospital LANEUNIT Number: Repository [address] [id number] [id number]: 330) Date:2018-04-25 [phone] () 04/25/2018 Secondary ROULA D [place] Insurance:AETNA SR MILLERDOB: [facility] [id number] Hospital Number: Repository [id number] Date:[id number] SENIOR SUPPLEMENT [address] [place] [address]OG: 04/25/2018 Tertiary NOT GIVENUNK [place] Insurance:SELF PAY [facility] Number: Effective Repository Date:2018-04-25 03/21/2018 ROULA D Primary ROULA D [place] [id number] Insurance:MEDICARE MILLERDOB: Community [place] PART A BPolicy [id number] Hospital LANEUNIT Number: Repository [address], [place] [id number] [id number]: 330) Date:2017-06-02 [phone] (HP) 03/21/2018 Secondary ROULA D [place] Insurance:AETNA SR MILLERDOB: Community [facility] [id number] Hospital Number: Repository [id number] Date:[id number] SENIOR SUPPLEMENT [address] [address], [place] [address]KK: 03/21/2018 Tertiary NOT GIVENUNK [place] Insurance:SELF PAY [facility] Number: Effective Repository Date:2018-03-21 01/09/2018 ROULA D Primary ROULA D University MILLERDOB: Insurance:MedicarePo MILLERDOB: Hospitals licy Number: [id number] Repository [facility] [id number] [facility] LN[address], Date:Plan Name:[facility] [id number]: A [address], [place] [id number]: (HP) (HP) 01/09/2018 Secondary ROULA D University Insurance:MedicarePo MILLERDOB: Hospitals licy Number: [id number] Repository [id number] [facility] Date:Plan Name:Mcare [address], [place] [id number]: (HP) 01/09/2018 Tertiary ROULA D University Insurance:AetnaPolic MILLERDOB: Hospitals y Number: [id number] Repository [id number] [facility] Date:Plan LNUNIT Name:Health [address], [place] [id number]: (HP) 01/09/2018 LAKEISHA R MILLERDOB: Primary [facility] Insurance:MedicarePo MILLERDOB: [facility] licy Number: [id number] Repository [address], [id number] [facility] [place] [address]Lld: (330) Date:Plan Name:[facility] LNUN [id number] () A [address], [place] [id number]: (HP) 01/09/2018 Secondary [facility] Insurance:MedicarePo MILLERDOB: Hospitals licy Number: [id number] Repository [id number] [facility] [address] [place] [address], [place] [id number]: (HP) 01/09/2018 Tertiary [facility] Insurance:AetnaPolic MILLERDOB: Hospitals y Number: [id number] Repository [id number] [facility] Date:Plan LNUNIT Name:[address] [id number]: (HP) 01/02/2018 LAKEISHA R MILLERDOB: Primary [facility] Insurance:MedicarePo MILLERDOB: [facility] licy Number: [id number] Repository LNUNIT [address] [place] [address], [id number] [facility] [place] [address]Sam: (330) Date:[facility] UN [phone] (HP) A [address] [place] [id number]: (HP) 01/02/2018 Secondary [facility] Insurance:MedicarePo MILLERDOB: Hospitals licy Number: [id number] Repository [id number] [facility] Date:Plan Name:[facility] B [address] [place] [address], [place] [id number]: (HP) 11/01/2017 [place] [id number] Insurance:MEDICARE MILLERDOB: Community [facility] A [facility] [id number] Hospital LANEUNIT Number: Repository [place] [id number] [id number]: (330) Date:2017-10-31 [phone] () 11/01/2017 Secondary ROULA D [place] Insurance:AETNA SR MILLERDOB: Community [facility] [id number] Hospital Number: Repository [id number] Date:9824-20-56IICBV SENIOR SUPPLEMENT IN[address] [place] [address]JT: 11/01/2017 Tertiary NOT GIVENUNK [place] Insurance:SELF PAY [facility] Hospital Number: Effective Repository Date:2017-11-01 10/26/2017 ROULA D Primary ROULA D [place] [id number] Insurance:MEDICARE MILLERDOB: [facility] PART A [facility] [id number] CenterUNIT Number: Repository [address], [place] [id number] [address]Fmq: (330) Date:2017-10-26 [phone] () 10/26/2017 Secondary ROULA D [place] Insurance:AETNA SR MILLERDOB: [facility]MENT [facility] [id number] Hospital Number: Repository [id number] Date:[id number] SENIOR SUPPLEMENT [address] [place] [phone]: 10/26/2017 Tertiary NOT GIVENUNK [place] Insurance:SELF PAY [facility] Hospital Number: Effective Repository Date:2017-10-26 10/12/2017 ROULA D Primary ROULA D University MILLERDOB: Insurance:MedicarePo MILLERDOB: Hospitals licy Number: [id number] Repository [facility] [id number] 145, Date:Plan Name:[facility] [id number]: A [address], [place] [id number]: () (HP) 10/12/2017 Secondary ROULA D University Insurance:MedicarePo MILLERDOB: Hospitals licy Number: [id number] Repository [id number] [facility] Date:Plan Name:Mcare LNUNIT [address] [place] [id number]: (HP) 10/12/2017 Tertiary [facility] Insurance:Commercial MILLERDOB: Hospitals Policy Number: [id number] Repository [id number] [facility] Date:Plan LNUNIT Name:HealthPO [address] [place] [address]GMNSWCJRZ, [place] [id number]: [id number]: [phone] (HP) 2017 ROULA D Primary ROULA D [place] [id number] Insurance:MEDICARE MILLERDOB: [facility] PART A [facility] [id number] Hospital LANEUNIT Number: Repository [address] [place] [id number]: 330) Date:[phone] (HP) 2017 Secondary ROULA D [place] Insurance:AETNA SR MILLERDOB: Community [facility] [id number] Hospital Number: Repository [id number] Date:9091-99-58CNOVS SENIOR SUPPLEMENT IN[address] [place] [phone]: 2017 Tertiary NOT GIVENUNK [place] Insurance:SELF PAY [facility] Number: Effective Repository Date:2017 06/02/2017 ROULA D Primary ROULA D [place] [id number] Insurance:MEDICARE MILLERDOB: Community [facility] PART A [facility] [id number] Hospital LANEUNIT Number: Repository [address] [place] [address] [id number]: 330) Date:2017-03-15 [phone] (HP) 06/02/2017 Secondary ROULA D [place] Insurance:AETNA SR MILLERDOB: Community [facility] [id number] Hospital Number: Repository [id number] Date:6506-44-36SHBGO SENIOR SUPPLEMENT INSP[address] [place] [address]HF: 06/02/2017 Tertiary NOT GIVENUNK [place] Insurance:SELF PAY [facility] Number: Effective Repository Date:2017-03-15 05/22/2017 Roula D Primary Roula D [place] [id number] Insurance:MEDICARE MillerDOB: Community [place] PART A [facility] [id number] Hospital LaneUnit Number: Repository [address], [place] [id number]: (330) Date:2017-05-22 [phone] () 05/22/2017 Secondary Roula D [place] Insurance:AETNA SR MillerDOB: Community [facility] [id number] Hospital Number: Repository [id number] Date:5587-67-73TKIPB SENIOR SUPPLEMENT [address] [address], [place] [address]AG: 05/22/2017 Tertiary NOT GIVENUNK [place] Insurance:SELF PAY [facility] Number: Effective Repository Date:2017-05-22
== END ==
PROVIDERS: Family Provider Family Medicine; PCP Family Medicine; Visit Provider Family Medicine
DX: I10 Essential (primary) hypertension (principal)
CPT/HCPCS: 36415; 80048; 80061

== ENCOUNTER → 2018-10-16 15:23 | Outpatient (CLI) | payer MEDICARE, OTHER, SELFPAY ==
[2018-03-21 16:05] VITALS: BMI 31.0
[2018-10-16 18:08] LABS: Anion Gap 8 (5-15); BUN 26 mg/dL (7-18); BUN/Creat Ratio 23.2 RATIO (10-20); Calcium,Total 9.1 mg/dL (8.5-10.1); Chloride 106 mmol/L (98-107); Cholesterol 197 mg/dL (200); Creatinine, Serum 1.12 mg/dL (0.70-1.30); EST Glomerular Filtration Rate 67 mL/min (>60); Est Glom Filt Rate - Afr Amer 81 mL/min (>60); Glucose 89 mg/dL (74-106); High Density Lipoprotein 64 mg/dL; PSA,Total - Annual Screen < 0.01 ng/mL (0.00-4.00); Potassium 4.8 mmol/L (3.5-5.1); Sodium Level 141 mmol/L (136-145); Triglycerides 82 mg/dL; Very Low Density Lipoprotein 16 mg/dL (5-40)
== END ==
PROVIDERS: Family Provider Family Medicine; PCP Family Medicine; Visit Provider Family Medicine
DX: C61 Malignant neoplasm of prostate (principal); E78.5 Hyperlipidemia, unspecified
CPT/HCPCS: 36415; 80048; 80061; 84153; G0103

== ENCOUNTER → 2018-10-29 17:21 | Outpatient (CLI) | payer MEDICARE, OTHER, SELFPAY ==
[2018-03-21 16:05] VITALS: BMI 31.0
== END ==
PROVIDERS: Family Provider Family Medicine; PCP Family Medicine; Referring Provider Family Medicine; Visit Provider Family Medicine
DX: R05 Cough (principal)
CPT/HCPCS: 87070; 87077; 87106; 87205

== ENCOUNTER → 2018-11-07 14:49 | Outpatient (CLI) | payer MEDICARE, OTHER, SELFPAY ==
[2018-03-21 16:05] VITALS: BMI 31.0
== END ==
PROVIDERS: Family Provider Family Medicine; PCP Family Medicine; Referring Provider Family Medicine; Visit Provider Family Medicine
DX: R05 Cough (principal)
CPT/HCPCS: 87070; 87077; 87106; 87205

== ENCOUNTER → 2018-12-13 15:12 | Outpatient (CLI) | payer MEDICARE, OTHER, SELFPAY ==
[2018-03-21 16:05] VITALS: BMI 31.0
--- NOTE | 2018-12-13 15:30 | PET_ITS ---
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 COMPARISON EXAMINATION: None available. INDEX LESION SIZE SUV INTERPRETATION Right lower anteromedial lung field-right middle lobe nodular 42.2 mm (frame 230) 3.6 Fulfills quantitative criteria for viable neoplasm, histopathologic analysis recommended Right lower medial lung field linear 1.6 Quantitative criteria for viable neoplasm are not fulfilled TECHNIQUE: Following the intravenous administration of 14.2 mCi of F-18 deoxyglucose via the left antecubital fossa, multiplanar image acquisitions of the neck, chest, abdomen and pelvis to level of mid thigh, obtained at one hour post radiopharmaceutical administration contemporaneously interpreted with the current CT of the neck, chest, abdomen and pelvis to level of mid thigh, dated 12/13/18 via coregistration reveal: SERUM GLUCOSE LEVEL: 90 mg/dl. HEIGHT: 68 inches. WEIGHT: 200 lbs. FINDINGS: 1. A nodular focus of enhanced glucose metabolism is demonstrated in the right lower anteromedial hemithorax pulmonary parenchyma, right middle lobe generating a calculated maximum standard uptake value of 3.6. The maximal axial diameter of the corresponding metabolic, morphologic abnormality on review of CT of the chest dated 12/13/18 is 42.2 mm (AP). 2. Mild linear enhanced FDG distribution is noted in the right lower medial lung zone generating a calculated maximum standard uptake value of 1.6. Quantitative criteria for viable neoplasm are not fulfilled. 3. Normal physiologic distribution of the radiopharmaceutical is apparent in the hepatic (2.0) and splenic parenchyma, both renal units, bladder and visualized intestinal tract. There is uniform distribution of the radiopharmaceutical concentration defined in the visualized cerebellar hemispheres and cerebral cortical structures.? Diffuse intestinal tract activity is noted throughout all four quadrants of the abdominal-pelvic retroperitoneum, mesentery consistent with normal physiologic distribution of the radiopharmaceutical, most accentuated at the level of the distal transverse colon generating a calculated maximum standard uptake value of 5.4. Asymmetric increased glucose metabolism is manifest in the distribution of the right masseter musculature consistent with muscle tension artifact. Pertinent CT findings are as follows. CHEST: Atherosclerotic calcification is defined in the thoracic aorta without evidence of dilatation, aneurysm formation. Coronary arterial calcification is observed. Subcentimeter bilateral axillary soft tissue densities are non-glucose avid. There are no additional parenchymal densities-nodules defined in the right-left hemithorax demonstrating discernible, quantitatively significant enhanced FDG concentration. ABDOMEN AND PELVIS: Atherosclerotic calcification is defined in the abdominal aorta without evidence of dilatation, aneurysm formation. Pelvic arterial calcification is observed. Seed placement is noted in the prostate gland. A fat-containing left inguinal hernia is noted. Bilateral subcentimeter inguinal soft tissue densities are ametabolic. Peripelvic cyst formation is identified in the bilateral renal units. SKELETAL: Degenerative changes defined in the cervical, thoracic and lumbar spine demonstrate no evidence for glucose hypermetabolism. PET/PET/CT Tumor Base -Thigh Init IMPRESSION: 1. Focal increased glucose concentration observed in the right lower anteromedial lung field, right middle lobe fulfills quantitative criteria for viable neoplasm. Histopathologic analysis is recommended. (Jaylene et al, Annals of Internal Medicine, 138:724, 2003). 2. The linear increase in FDG distribution noted in the right lower medial lung field does not fulfill quantitative criteria for viable neoplasm. 3. Facilitated tracer distribution noted in the region of the distal transverse colon is most consistent with physiologic distribution of the radiopharmaceutical. If intraluminal soft tissue mass formation is a diagnostic consideration, correlation with CT of the abdomen and pelvis with oral and intravenous contrast is recommended. (Doasya et al, Journal of Nuclear Medicine, 30:S276, 2003). Electronic Signature Calvin Thomas D.O. Electronically Signed: Calvin Thomas DO at 22:28 EDT Tel , Service support ,
== END ==
PROVIDERS: Family Provider Family Medicine; PCP Family Medicine; Referring Provider Internal Medicine Pulmonary Disease; Visit Provider Internal Medicine Pulmonary Disease
DX: C34.32 Malignant neoplasm of lower lobe, left bronchus or lung (principal); J47.9 Bronchiectasis, uncomplicated
CPT/HCPCS: 78815; 87070; 87077; 87101; 87106; 87205; A9552

== ENCOUNTER → 2018-12-19 14:08 | Outpatient (CLI) | payer MEDICARE, OTHER, SELFPAY ==
[2018-03-21 16:05] VITALS: BMI 31.0
== END ==
PROVIDERS: Family Provider Family Medicine; PCP Family Medicine; Referring Provider Internal Medicine Pulmonary Disease; Visit Provider Internal Medicine Pulmonary Disease
DX: J47.9 Bronchiectasis, uncomplicated (principal)
CPT/HCPCS: 87070; 87077; 87101; 87106; 87205

== ENCOUNTER → 2018-12-27 10:44 | Outpatient (CLI) | payer MEDICARE, OTHER, SELFPAY ==
[2018-03-21 16:05] VITALS: BMI 31.0
[2018-12-27 12:11] LABS: Platelet Count 152 K/mm3 (150-450)
[2018-12-27 12:17] LABS: International Normalized Ratio 1.2; Partial Thromboplast Time 31.4 Seconds (24.1-36.2); Prothrombin Time (Protime)PT. 14.8 SECONDS (11.7-14.9)
== END ==
PROVIDERS: Family Provider Family Medicine; PCP Family Medicine; Referring Provider Family Medicine; Visit Provider Internal Medicine Pulmonary Disease
DX: Z79.82 Long term (current) use of aspirin (principal)
CPT/HCPCS: 36415; 85049; 85610; 85730

== ENCOUNTER → 2019-01-01 08:09 | Outpatient (CLI) | payer MEDICARE, OTHER, SELFPAY ==
[2018-03-21 16:05] VITALS: BMI 31.0
[2019-01-01] VITALS (12 sets, daily range): BP systolic 123–143; BP diastolic 38–89; PULSE 51–58; RESP 16–26; TEMP 37.1; O2SAT 91–96; BMI 31.6
--- NOTE | 2019-01-01 | ASPIGT_PTH ---
PATIENT: ROULA KHAN LOC: CT U#:[id number] AGE/SX: 89/M ROOM: RE01/01/[address]: Dr. Prince Rahman MD : 1935 BED: DIS: SPEC #: [id number] RECD: 01/01/19 13:34 STATUS: BARRY RENETTA #: [id number] JEIMY: 01/01/19 00:[address]: Prince Rahman V DEPT: SURGICAL PATHOLOGY RECD BY: Leo Callahan ENTERED: 01/01/19 13:34 SP TYPE: ASP RAD OTHR DR: Dr. Alin Finley MD Tissues: Lung, NOS Procedures: FNA Specimen Adequacy Trichrome (control) Special Stain Group II Surgery Specimen Level IV Retic (control) Imprint (control) HEADER OPERATION: Right lung, CT-guided core biopsy PRE-OP DIAGNOSIS: Lung nodule TISSUE SUBMITTED: Right lung MICROSCOPIC DIAGNOSIS Right lung, CT-guided core biopsy: Benign lung parenchymal tissue with mild interstitial chronic inflammation and fibrosis. Negative for malignancy. See comment. ALISSON:monie 01/02/19 COMMENT The specimen is evaluated at the time of biopsy by Dr. Wolf. Immediate Evaluation = Negative for malignant cells. Reticulin and trichrome stains with matched control is used in the evaluation of the specimen. Correlation with clinical, radiologic findings and appropriate follow up are necessary. Case has been reviewed in consultation with Dr. Jacobo who concurs with the above diagnosis. IDC:AM MICROSCOPIC DESCRIPTION Slides are reviewed. GROSS DESCRIPTION Received in fixative is one container labeled with the patient's name and designated right lung. The specimen consists of multiple minute fragments of quiñones soft tissue that in aggregate measure 0.5 x 0.1 x <0.1 cm. The specimen is totally submitted in one cassette. / ALISSON:monie 01/01/19 TC:5 CPT: 44781, 45031, 03047 x2
--- NOTE | 2019-01-01 08:12 | CT_ITS ---
PROCEDURE: CT GUIDED CORE NEEDLE BIOPSY OF A anterior right lower lobe LUNG LESION INDICATION: Male, 83 years old. Right lower lobe nodular density. PHYSICIAN: Dr. Carolyn BELL CONSENT: Written informed consent was obtained having explained the risks, benefits and alternatives in detail with the patient who accepted the risks and agreed to proceed. Laboratory review and clinical assessment was performed. CONSCIOUS SEDATION PROTOCOL: The Drugs used were: 2 mg Versed, IV., and 50 mcg Fentanyl, IV. The sedation time was: 22 minutes. Conscious sedation was started at 9:13 AM and terminated at 9:35 AM. The conscious sedation protocol was independently monitored. RADIATION DOSAGE (If Supplied By Facility): CTDIvol = ( 18 ) mGy, DLP = ( 500.78 ) mGycm Individualized dose optimization techniques were used for this CT. TECHNIQUE: The patient was placed in the supine position. A noncontrast CT was performed to localize the lesion in the anterior aspect of the right lower lobe . The skin surface was prepped and draped in a sterile fashion. 1% lidocaine was used for local anesthesia. Using CT guidance, a 28 coaxial biopsy device was advanced to the periphery of the lesion. A total of 4 core specimens were obtained. The specimens were placed in a formalin solution. A post procedure CT demonstrated no adverse sequelae or pneumothorax. The patient tolerated the procedure well without adverse event. A negative biopsy does not exclude malignancy. Further imaging or clinical followup based on patient condition and degree of clinical suspicion for malignancy. Suggest rebiopsy, if biopsy results do not match with clinical scenario. CT/Biopsy/Inj or Needle Placement IMPRESSION: 1. CT directed core needle biopsy of the anterior right lower lobe nodular density using CT image guidance with image documentation as described. Pathology results are pending. 2. Conscious Sedation protocol utilized with independent monitoring. Electronically Signed: Juan M Leon, at 9:52 EDT , Service support ,
[2019-01-01] MEDS: Midazolam 2 MG/2 ML Syringe IV (09:12)
[2019-01-01] MEDS: fentaNYL 100 MCG/2 ML Ampul IV (09:16)
--- NOTE | 2019-01-01 09:35 | RAD_ITS ---
STUDY: X-RAY CHEST REASON FOR EXAM: Male, 83 years old. Post right lung biopsy. TECHNIQUE: AP inspiration and expiration views. COMPARISON: Comparison is made with prior study dated August 24, 2016. FINDINGS: The patient is status post right lung biopsy. There is evidence of a small right apical pneumothorax a two-hour follow-up radiograph will be obtained. RAD/Chest Insp/Exp 2 View IMPRESSION: Status post right lung biopsy. Small right apical pneumothorax. Electronically Signed: Juan M Leon, at 10:28 EDT , Service support ,
--- NOTE | 2019-01-01 11:30 | RAD_ITS ---
STUDY: X-RAY CHEST REASON FOR EXAM: Male, 83 years old. 2 hour delayed post right lung biopsy radiographs. TECHNIQUE: AP inspiration and expiration views. COMPARISON: Comparison is made with prior study done earlier today. FINDINGS: Small residual right apical pneumothorax. The patient is asymptomatic.. RAD/Chest Insp/Exp 2 View IMPRESSION: Small residual right apical pneumothorax. The patient is asymptomatic. Electronically Signed: Juan M Leon, at 11:48 EDT , Service support ,
== END ==
PROVIDERS: Family Provider Family Medicine; PCP Family Medicine; Referring Provider Internal Medicine Pulmonary Disease; Visit Provider Internal Medicine Pulmonary Disease
DX: R91.1 Solitary pulmonary nodule (principal); J95.811 Postprocedural pneumothorax
CPT/HCPCS: 32405; 71046; 77012; 88172; 88305; 88313; 99156; 99157; J7040; A4216

== ENCOUNTER → 2019-01-14 17:23 | Outpatient (CLI) | payer MEDICARE, OTHER, SELFPAY ==
[2019-01-09 09:10] VITALS: BMI 28.2
--- NOTE | 2019-01-14 17:28 | CT_ITS ---
STUDY: CT MAXILLOFACIAL SINUSES REASON FOR EXAM: Male, 83 years old. Productive cough and sinus disease. RADIATION DOSAGE (If Supplied By Facility): CTDIvol = ( 33.06 ) mGy, DLP = ( 920.62 ) mGycm TECHNIQUE: The patient was scanned in a multi detector CT scanner. High resolution axial imaging was performed without the administration of intravenous contrast material. Sagittal and coronal images were reconstructed. Individualized dose optimization techniques were used for this CT. COMPARISON: None. FINDINGS: FRONTAL SINUSES: Normal aeration, without mucosal inflammatory disease. ETHMOIDAL SINUSES: Normal aeration, without mucosal inflammatory disease. MAXILLARY SINUSES: There is mucoperiosteal thickening and possible mucous retention cysts in the left maxillary sinus. The right maxillary sinus appears to be clear. There is minimal right maxillary mucoperiosteal thickening. SPHENOIDAL SINUSES: There appears to be a small mucous retention cyst in the right sphenoid sinus. There is also small left sided mucous retention cyst. The sphenoid sinuses are otherwise clear. There is patency of the bilateral maxillary infundibuli with normal uncinate processes, ethmoid bullae, and hiatus semilunaris. There is a jesus bullosa of the right middle turbinate. Normal bilateral inferior turbinates. Normal midline nasal septum. There is patency of the bilateral nasal airways. There are degenerative changes of the cervical spine with disc space narrowing and small endplate osteophytes. Extraocular muscles, optic nerves and globes have a grossly normal appearance. There is atherosclerotic calcification of the intracranial arteries. There are mild emotional changes of brain. Patient has bilateral ocular lenticular implants. CT/Sinus/Facial Bone IMPRESSION: Minimal paranasal sinus disease. Electronically Signed: Ebony Kidd MD at 6:27 EDT , Service support ,
== END ==
PROVIDERS: Family Provider Family Medicine; PCP Family Medicine; Referring Provider Otolaryngology; Visit Provider Otolaryngology
DX: J32.9 Chronic sinusitis, unspecified (principal)
CPT/HCPCS: 70486

== ENCOUNTER → 2019-01-21 11:17 | Outpatient (CLI) | payer MEDICARE, OTHER, SELFPAY ==
[2019-01-09 09:10] VITALS: BMI 28.2
[2019-01-21 12:39] LABS: Absolute Lymphocyte Count 1.32 X10^3/uL (0.83-4.51); Absolute Neutrophil Count 3.8 X10^3/uL (2.0-7.7); Basophil# 0.04 X10^3/uL; Basophil% 0.6 % (0-1); Eosinophil# 0.44 X10^3/uL; Eosinophils% 6.4 % (0-5); Hematocrit 31.8 % (40-54); Hemoglobin 9.8 g/dL (13.0-16.5); Lymphocyte # 1.32 X10^3/ul (4.0); Lymphocyte % 19.3 % (19-41); Mean Corp Hgb Conc 30.8 g/dL (32-36); Mean Corpuscular Hgb 28.9 pg (27.0-32.0); Mean Corpuscular Volume 93.8 fL (80-94); Mean Platelet Vol. 11.9 fl (6.2-12.0); Monocyte% 17.6 % (0-10); NRBC Flagged by Analyzer 0 % (0-5); Neutrophil % 55.7 % (47-70); Platelet Count 230 K/mm3 (150-450); RBC Distribution Width CV 13.7 % (11.6-14.6); RBC Distribution Width SD 46.6 fl (35.1-43.9); Red Blood Count 3.39 M/mm3 (4.6-6.2); White Blood Count 6.8 K/mm3 (4.4-11.0)
[2019-01-21 13:02] LABS: Anion Gap 5 (5-15); BUN 26 mg/dL (7-18); BUN/Creat Ratio 23.9 RATIO (10-20); Calcium,Total 8.4 mg/dL (8.5-10.1); Chloride 108 mmol/L (98-107); Cholesterol 135 mg/dL (200); Creatinine, Serum 1.09 mg/dL (0.70-1.30); EST Glomerular Filtration Rate 69 mL/min (>60); Est Glom Filt Rate - Afr Amer 83 mL/min (>60); Glucose 85 mg/dL (74-106); High Density Lipoprotein 43 mg/dL; Potassium 5.1 mmol/L (3.5-5.1); Sodium Level 139 mmol/L (136-145); Triglycerides 179 mg/dL; Very Low Density Lipoprotein 36 mg/dL (5-40)
[2019-01-22 16:24] LABS: Endomysial Antibody IgA Negative (Negative)
[2019-01-22 20:22] LABS: Immunoglobulin A 266 mg/dL (61-437); t-Transglutaminase IgA <2 U/mL (0-3)
== END ==
PROVIDERS: Family Provider Family Medicine; PCP Family Medicine; Visit Provider Family Medicine
DX: D64.9 Anemia, unspecified (principal); I10 Essential (primary) hypertension; K92.1 Melena
CPT/HCPCS: 36415; 80048; 80061; 82784; 83516; 85025; 86255

== ENCOUNTER → 2019-01-23 17:27 | Outpatient (CLI) | payer MEDICARE, OTHER, SELFPAY ==
[2019-01-09 09:10] VITALS: BMI 28.2
== END ==
PROVIDERS: Family Provider Family Medicine; PCP Family Medicine; Referring Provider Internal Medicine Pulmonary Disease; Visit Provider Internal Medicine Pulmonary Disease
DX: R91.1 Solitary pulmonary nodule (principal); J47.9 Bronchiectasis, uncomplicated
CPT/HCPCS: 87015; 87077; 87101; 87106; 87116; 87206

== ENCOUNTER → 2019-02-18 10:09 | Outpatient (CLI) | payer MEDICARE, OTHER, SELFPAY ==
[2019-01-09 09:10] VITALS: BMI 28.2
[2019-02-18 12:31] LABS: Absolute Lymphocyte Count 0.81 X10^3/uL (0.83-4.51); Absolute Neutrophil Count 3.8 X10^3/uL (2.0-7.7); Basophil# 0.01 X10^3/uL; Basophil% 0.2 % (0-1); Eosinophil# 0.09 X10^3/uL; Eosinophils% 1.5 % (0-5); Hematocrit 33.8 % (40-54); Hemoglobin 10.6 g/dL (13.0-16.5); Lymphocyte # 0.81 X10^3/ul (4.0); Lymphocyte % 13.9 % (19-41); Mean Corp Hgb Conc 31.4 g/dL (32-36); Mean Corpuscular Hgb 29.5 pg (27.0-32.0); Mean Corpuscular Volume 94.2 fL (80-94); Mean Platelet Vol. 12.6 fl (6.2-12.0); Monocyte% 18.9 % (0-10); NRBC Flagged by Analyzer 0 % (0-5); Neutrophil % 65.2 % (47-70); Platelet Count 139 K/mm3 (150-450); RBC Distribution Width CV 14.7 % (11.6-14.6); RBC Distribution Width SD 51.1 fl (35.1-43.9); Red Blood Count 3.59 M/mm3 (4.6-6.2); White Blood Count 5.8 K/mm3 (4.4-11.0)
== END ==
PROVIDERS: Family Provider Family Medicine; PCP Family Medicine; Referring Provider Family Medicine; Visit Provider Family Medicine
DX: D64.9 Anemia, unspecified (principal)
CPT/HCPCS: 36415; 85025

== ENCOUNTER → 2019-03-12 08:01 | Outpatient (CLI) | payer MEDICARE, OTHER, SELFPAY ==
[2019-01-09 09:10] VITALS: BMI 28.2
[2019-03-11 11:23] VITALS: BMI 29.3
--- NOTE | 2019-03-12 08:02 | CT_ITS ---
HISTORY: LUNG CANCER 6 years ago. Radiation only. f/u nodule TECHNIQUE: Helically acquired images were obtained of the chest following the intravenous administration of 100 ml of Isovue 300 Iodinated contrast. as per pulmonary angiogram protocol with 2D MIP reconstructions. A radiation dose optimization technique was used for this scan. COMPARISON: A PET/CT was performed on December 13, 2018. The paperwork from that study before it occurred is available. The report is available. The images are not available. FINDINGS: # of images incl. paperwork: [phone] Pulmonary emphysema. Focal airspace disease with septal thickening within the left lower lobe. Additional bronchiectasis with airspace disease in the left upper lobe. Focal airspace disease with occluded bronchus within the apical portion of the right upper lobe. That is a dilated bronchus. Findings similar to a vascular malformation on the minor fissure as it extends down along the posterior aspect of the right upper lobe. Cystic bronchiectasis and airspace disease within the right lower lobe.. No effusions. Within the thoracic spinethere is a mild kyphosis. Multilevel degenerative disc disease with endplate sclerosis. Schmorl's node invaginations and anterior enthesophytes Vertebral body height is mostly preserved. Within the mid thoracic spine there is mild chronic degenerative wedging. No lytic or blastic metastasis are perceived Facets are well aligned. No rib lesions are perceived. Heart is not enlarged. Thoracic aorta elongated with atherosclerotic plaque. No aneurysms, stenoses, dissections, nor occlusions. Axillary adenopathy is present. Surgical clips and anastomotic staple line is present along the posterior aspect of the aortic arch in the posterior aspect of the left lower lobe and hilum No pulmonary emboli are perceived. Negative predictive value is diminished within the subsegmental branches. Visualized portions of the upper abdomen are without identified acute pathology. CT/Chest WITH Contrast IMPRESSION: No pulmonary embolism, aortic aneurysm, or aortic dissection. Airspace disease that is most severe within the left lower lobe with severe cystic bronchiectasis. Additional cystic bronchiectasis within the right upper lobe with a large bronchus that is fluid filled out to its periphery with some surrounding airspace disease. Focal nodular airspace disease in the left upper lobe with additional bronchi that are disease. Some bronchi that are disease in the right lower lobe with more peripheral airspace disease. This most likely represents pneumonia and/or chronic granulomatous disease. The PET/CT from December 13, 2018 discusses focal increased glucose concentration observed in the right lower anterior medial lung field. Within this region is perhaps severe disease within the medial segment of the right middle lobe, that may be infectious or neoplastic. Individualized dose optimization techniques were used for this CT. at [id number] Reported and signed by: Milind Barba MD Electronically Signed: Milind Barba MD at 5:43 EST Tel , Service support ,
[2019-03-12 08:15] LABS: CREATININE FINGERSTICK 0.8 mg/dL (0.70-1.30); EGFR FINGERSTICK > 60.0000 mL/min (>60)
== END ==
PROVIDERS: Family Provider Family Medicine; PCP Family Medicine; Referring Provider Internal Medicine Medical Oncology; Visit Provider Internal Medicine Medical Oncology
DX: J32.9 Chronic sinusitis, unspecified (principal); R91.1 Solitary pulmonary nodule; Z85.118 Personal history of other malignant neoplasm of bronchus and lung
CPT/HCPCS: 71260; Q9967

== ENCOUNTER → 2019-09-11 12:32 | Outpatient (CLI) | payer MEDICARE, OTHER, SELFPAY ==
[2019-03-11 11:23] VITALS: BMI 29.3
[2019-03-14 14:46] VITALS: BMI 29.5
--- NOTE | 2019-09-11 12:48 | CT_ITS ---
STUDY: CT CHEST WITHOUT CONTRAST REASON FOR EXAM: Male, 83 years old. NODULE f/u. HISTORY OF LUNG CANCER-RADIATION ONLY RADIATION DOSAGE (If Supplied By Facility): CTDIvol = ( 19.53 ) mGy, DLP = ( 693.06 ) mGycm TECHNIQUE: Transaxial imaging was performed without the administration of intravenous contrast material. Multiplanar coronal and sagittal images were reformatted. Individualized dose optimization techniques were used for this CT. COMPARISON: 03/12/2019 FINDINGS: Lung windows show mild underlying emphysema. Stable interstitial scarring in both lung deras clinically in the right midlung field. There is no organized infiltrate or suspicious groundglass opacifications, there is evidence of small airways inflammation in the left lung base. No suspicious noncalcified mass or nodule noted, evidence of chronic bronchitis and stable bronchiectatic change. Stable pneumatocele in the right lung base. Normal heart and pericardium. There are calcifications of the coronary arteries. Normal mediastinum. Normal hilar regions. Normal unenhanced pulmonary arteries. Normal aorta arch and descending thoracic aorta. There are multi-level degenerative changes of the thoracic spine. Because to the upper abdomen show nonspecific dilatation of the left renal pelvis CT/Chest without Contrast IMPRESSION: Underlying emphysema with chronic interstitial changes in both lung deras, stable fibrotic scarring, and small airways inflammation in the left lung base. Little significant interval change since the previous study. No organized infiltrate or effusion Calcified coronary vessels Electronically Signed: Jovani De La Rosa MD at 16:54 EDT , Service support ,
[2019-09-11 12:55] LABS: Absolute Lymphocyte Count 1.22 X10^3/uL (0.83-4.51); Absolute Neutrophil Count 3.8 X10^3/uL (2.0-7.7); Basophil# 0.03 X10^3/uL; Basophil% 0.5 % (0-1); Eosinophil# 0.24 X10^3/uL; Eosinophils% 3.8 % (0-5); Hematocrit 33.4 % (40-54); Lymphocyte # 1.22 X10^3/ul (4.0); Lymphocyte % 19.1 % (19-41); Mean Corp Hgb Conc 32.9 g/dL (32-36); Mean Corpuscular Hgb 31.3 pg (27.0-32.0); Mean Corpuscular Volume 94.9 fL (80-94); Mean Platelet Vol. 12.5 fl (6.2-12.0); Monocyte# 1.08 X10^3/uL; Monocyte% 16.9 % (0-10); NRBC Flagged by Analyzer 0 % (0-5); Neutrophil # 3.77 X10^3/uL (2.7-7.7); Neutrophil % 59.1 % (47-70); Platelet Count 140 K/mm3 (150-450); RBC Distribution Width SD 44.5 fl (35.1-43.9); Red Blood Count 3.52 M/mm3 (4.6-6.2); White Blood Count 6.4 K/mm3 (4.4-11.0)
[2019-09-11 13:35] LABS: ALB/GLOB Ratio 0.8 RATIO (0.9-2.4); AST(SGOT) 22 U/L (15-37); Alanine Aminotransfer ALT/SGPT 25 U/L (16-61); Albumin, Serum 3.4 g/dL (3.2-5.0); Alkaline Phosphatase 92 U/L (45-117); Anion Gap 7 (5-15); BUN 34 mg/dL (7-18); BUN/Creat Ratio 25.8 RATIO (10-20); Calcium,Total 8.9 mg/dL (8.5-10.1); Chloride 107 mmol/L (98-107); Creatinine, Serum 1.32 mg/dL (0.70-1.30); EST Glomerular Filtration Rate 55 mL/min (>60); Est Glom Filt Rate - Afr Amer 67 mL/min (>60); Globulin 4.3 g/dL (2.2-4.2); Glucose 94 mg/dL (74-106); LDH 200 U/L (87-241); PSA,Total- Diagnostic < 0.01 ng/mL (0.0-4.0); Potassium 4.9 mmol/L (3.5-5.1); Protein, Total 7.7 g/dL (6.4-8.2); Sodium Level 140 mmol/L (136-145)
[2019-09-11 20:40] LABS: Xtra Tube EP Lab EXTRA TUBE
== END ==
PROVIDERS: Internal Medicine Medical Oncology; Family Provider Family Medicine; PCP Family Medicine; Referring Provider Internal Medicine Pulmonary Disease; Visit Provider Internal Medicine Pulmonary Disease
DX: R91.1 Solitary pulmonary nodule (principal); Z85.118 Personal history of other malignant neoplasm of bronchus and lung; Z85.46 Personal history of malignant neoplasm of prostate
CPT/HCPCS: 36415; 71250; 80053; 83615; 84153; 85025

== ENCOUNTER → 2019-11-15 | Outpatient (CLI) | payer MEDICARE, OTHER, SELFPAY ==
[2019-09-16 14:06] VITALS: BMI 31.8
== END | disposition home or self-care (01) ==
LOC: LABSPEC 15:04
PROVIDERS: PCP Family Medicine; Referring Provider Otolaryngology; Visit Provider Otolaryngology
DX: J01.90 Acute sinusitis, unspecified (principal)
CPT/HCPCS: 87070; 87205

== ENCOUNTER → 2020-03-16 14:47 | Outpatient (CLI) | payer MEDICARE, OTHER, SELFPAY ==
[2019-09-16 14:06] VITALS: BMI 31.8
[2020-03-16 18:20] LABS: Absolute Lymphocyte Count 1.22 X10^3/uL (0.83-4.51); Absolute Neutrophil Count 3.6 X10^3/uL (2.0-7.7); Basophil# 0.03 X10^3/uL; Basophil% 0.5 % (0-1); Eosinophils% 3.3 % (0-5); Hematocrit 35.3 % (40-54); Hemoglobin 11.2 g/dL (13.0-16.5); Lymphocyte # 1.22 X10^3/ul (4.0); Lymphocyte % 19.9 % (19-41); Mean Corp Hgb Conc 31.7 g/dL (32-36); Mean Corpuscular Hgb 29.7 pg (27.0-32.0); Mean Corpuscular Volume 93.6 fL (80-94); Mean Platelet Vol. 12.8 fl (6.2-12.0); Monocyte# 1.05 X10^3/uL; Monocyte% 17.2 % (0-10); NRBC Flagged by Analyzer 0 % (0-5); Neutrophil # 3.59 X10^3/uL (2.7-7.7); Neutrophil % 58.6 % (47-70); Platelet Count 165 K/mm3 (150-450); RBC Distribution Width CV 13.6 % (11.6-14.6); RBC Distribution Width SD 46.3 fl (35.1-43.9); Red Blood Count 3.77 M/mm3 (4.6-6.2); White Blood Count 6.1 K/mm3 (4.4-11.0)
[2020-03-16 18:26] LABS: Anion Gap 5 (5-15); BUN 30 mg/dL (7-18); BUN/Creat Ratio 24.2 RATIO (10-20); Calcium,Total 9.1 mg/dL (8.5-10.1); Chloride 109 mmol/L (98-107); Cholesterol 171 mg/dL (200); Creatinine, Serum 1.24 mg/dL (0.70-1.30); EST Glomerular Filtration Rate 59 mL/min (>60); Est Glom Filt Rate - Afr Amer 71 mL/min (>60); Glucose 120 mg/dL (74-106); High Density Lipoprotein 72 mg/dL; Potassium 4.4 mmol/L (3.5-5.1); Sodium Level 138 mmol/L (136-145); Thyroid Stim Hormone (TSH) 2.35 uIU/mL (0.358-3.74); Triglycerides 124 mg/dL; Very Low Density Lipoprotein 25 mg/dL (5-40)
== END ==
PROVIDERS: PCP Family Medicine; Referring Provider Family Medicine; Visit Provider Family Medicine
DX: R53.83 Other fatigue (principal); I10 Essential (primary) hypertension
CPT/HCPCS: 36415; 80048; 80061; 84403; 84443; 85025

== ENCOUNTER 2020-06-29 13:58 | Emergency (ER) | payer MEDICARE, OTHER, SELFPAY ==
[2020-03-20 08:36] VITALS: BMI 31.1
[2020-06-29 14:01] VITALS: BP 123/79; PULSE 57; RESP 18; TEMP 36.4; O2SAT 97; BMI 32.3
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
--- NOTE | 2020-06-29 14:45 | RAD_ITS ---
STUDY: X-RAY - LEFT ELBOW REASON FOR EXAM: Male, 84 years old. Injury TECHNIQUE: 3 view(s) of the elbow. COMPARISON: None. FINDINGS: Normal visualized humerus, radius and ulna. Normal radiocapitellar and ulnotrochlear articulations. The soft tissue structures are unremarkable. RAD/Elbow min 3 Views IMPRESSION: Normal x-ray examination of the elbow. Electronically Signed: Juan M Leon MD at 15:22 EDT , Service support ,
== END 2020-06-29 16:01 | disposition home or self-care (01) ==
PROVIDERS: Emergency Provider Emergency Medicine; PCP Family Medicine
DX: S51.802A Unspecified open wound of left forearm, initial encounter (principal); S20.212A Contusion of left front wall of thorax, initial encounter; V03.09XA Pedestrian with other conveyance injured in collision with car, pick-up truck or van in nontraffic accident, initial encounter; Y93.89 Activity, other specified; Y92.410 Unspecified street and highway as the place of occurrence of the external cause; Y99.9 Unspecified external cause status; I25.10 Atherosclerotic heart disease of native coronary artery without angina pectoris; I34.1 Nonrheumatic mitral (valve) prolapse; E78.2 Mixed hyperlipidemia; Z79.899 Other long term (current) drug therapy; Z87.891 Personal history of nicotine dependence
CPT/HCPCS: 71250; 73080; 99282

== ENCOUNTER → 2020-07-17 11:40 | Outpatient (CLI) | payer MEDICARE, OTHER, SELFPAY ==
[2020-06-29 14:01] VITALS: BMI 32.3
--- NOTE | 2020-07-17 11:55 | RAD_ITS ---
INDICATION: CHEST PAIN EXAMINATION/TECHNIQUE: X-RAY - XR Chest 2 Views COMPARISON: 01/01/2019. FINDINGS: Chronic interstitial lung changes/scarring. Tortuous and calcified thoracic aorta. The heart is not enlarged. No pleural effusion or pneumothorax. Senescent changes of the bones. RAD/Chest PA and Lateral IMPRESSION: No definite acute abnormalities. Chronic interstitial lung changes/scarring. Electronically Signed: Aries Munguia MD at 18:54 EDT Tel , Service support ,
[2020-07-17 12:32] LABS: D-Dimer Quantitative (DVT/PE) 0.67 FEU/ug/m (0.27-0.49)
== END ==
PROVIDERS: PCP Family Medicine; Referring Provider Internal Medicine Pulmonary Disease; Visit Provider Internal Medicine Pulmonary Disease
DX: R07.9 Chest pain, unspecified (principal); R06.00 Dyspnea, unspecified
CPT/HCPCS: 36415; 71046; 85379

== ENCOUNTER → 2020-07-22 13:39 | Outpatient (CLI) | payer MEDICARE, OTHER, SELFPAY ==
[2020-06-29 14:01] VITALS: BMI 32.3
--- NOTE | 2020-07-22 13:45 | VDLE_ITS ---
Reason For Study: Edema RIGHT LEFT GSV is normal. GSV is normal. CFV is compressible, spontaneous, phasic, CFV is compressible, spontaneous, phasic, competent and demonstrates normal competent, and demonstrates normal augmentation. augmentation. FV is compressible, spontaneous, phasic, FV is compressible, spontaneous, phasic, competent and demonstrates normal competent and demonstrates normal augmentation. augmentation. POP V is compressible, spontaneous, phasic, POP V is compressible, spontaneous, phasic, competent and demonstrates normal competent and demonstrates normal augmentation. augmentation. T/P Trunk is compressible. T/P Trunk is compressible. PTV is compressible. PTV is compressible. RT PerV is compressible. LT PerV is compressible. Procedure This is a venous duplex using B-mode, color flow and spectral Doppler. Exam performed in department. A preliminary report was called and/or faxed to [facility]. VL/Venous Duplex US - Yevgeniy Extrem Interpretation Summary Deep veins of the lower extremities are bilaterally patent and compressible seg mentally. There is no evidence of deep vein thrombosis on either side. Valvular competence appears in tact within the proximal deep venous systems bilaterally. The great saphenous veins appear bila terally patent and compressible segmentally. Ordering Physician: Prince Rahman Referring Physician: Alin Finley Performed By: Genna Malcolm RVT and Student
== END ==
PROVIDERS: PCP Family Medicine; Referring Provider Internal Medicine Pulmonary Disease; Visit Provider Internal Medicine Pulmonary Disease
DX: R60.0 Localized edema (principal); R79.89 Other specified abnormal findings of blood chemistry
CPT/HCPCS: 93970

== ENCOUNTER → 2020-09-14 11:29 | Outpatient (CLI) | payer MEDICARE, OTHER, SELFPAY ==
[2020-09-14 15:42] LABS: Absolute Lymphocyte Count 1.56 X10^3/uL (0.83-4.51); Absolute Neutrophil Count 4.3 X10^3/uL (2.0-7.7); Basophil# 0.03 X10^3/uL; Basophil% 0.4 % (0-1); Eosinophil# 0.21 X10^3/uL; Eosinophils% 2.8 % (0-5); Hematocrit 35.9 % (40-54); Hemoglobin 11.2 g/dL (13.0-16.5); Lymphocyte # 1.56 X10^3/ul (0.83-4.51); Lymphocyte % 20.9 % (19-41); Mean Corp Hgb Conc 31.2 g/dL (32-36); Mean Corpuscular Hgb 29.3 pg (27.0-32.0); Mean Platelet Vol. 12.7 fl (6.2-12.0); Monocyte# 1.29 X10^3/uL; Monocyte% 17.3 % (0-10); NRBC Flagged by Analyzer 0 % (0-5); Neutrophil # 4.33 X10^3/uL (2.7-7.7); Neutrophil % 58.1 % (47-70); Platelet Count 147 K/mm3 (150-450); RBC Distribution Width CV 13.1 % (11.6-14.6); RBC Distribution Width SD 45.1 fl (35.1-43.9); Red Blood Count 3.82 M/mm3 (4.6-6.2); White Blood Count 7.5 K/mm3 (4.4-11.0)
[2020-09-14 16:17] LABS: Anion Gap 6 (5-15); BUN 33 mg/dL (7-18); BUN/Creat Ratio 29.7 RATIO (10-20); Calcium,Total 9.4 mg/dL (8.5-10.1); Chloride 106 mmol/L (98-107); Cholesterol 170 mg/dL (200); Creatinine, Serum 1.11 mg/dL (0.70-1.30); EST Glomerular Filtration Rate 67 mL/min (>60); Est Glom Filt Rate - Afr Amer 81 mL/min (>60); Glucose 87 mg/dL (74-106); High Density Lipoprotein 71 mg/dL; PSA,Total- Diagnostic < 0.01 ng/mL (0.0-4.0); Potassium 4.8 mmol/L (3.5-5.1); Sodium Level 140 mmol/L (136-145); Thyroid Stim Hormone (TSH) 2.86 uIU/mL (0.358-3.74); Triglycerides 107 mg/dL; Very Low Density Lipoprotein 21 mg/dL (5-40)
== END ==
PROVIDERS: PCP Family Medicine; Visit Provider Family Medicine
DX: D64.9 Anemia, unspecified (principal); R53.83 Other fatigue; I10 Essential (primary) hypertension; Z85.46 Personal history of malignant neoplasm of prostate
CPT/HCPCS: 36415; 80048; 80061; 84153; 84443; 85025

== ENCOUNTER → 2020-11-09 16:49 | Outpatient (CLI) | payer MEDICARE, OTHER, SELFPAY ==
--- NOTE | 2020-11-09 16:52 | CT_ITS ---
EXAM DESCRIPTION: CT scan of the chest without IV contrast CLINICAL HISTORY: 85 years Male, PULMONARY NODULE COMPARISON: Prior CT scan of the chest obtained on 06/29/2020 TECHNIQUE: Axial CT images of the chest were obtained without IV contrast. Coronal and sagittal reconstruction images were also reviewed. This exam was performed according to our departmental dose-optimization program, which includes automated exposure control, adjustment of the mA and/or kV according to patient size and/or use of iterative reconstruction technique. FINDINGS: Some increased interstitial markings possibly due to an early pneumonic infiltrate are seen in the left lingula. Now noted is an extensive pneumonic consolidation involving the right lower lobe. There are enlarged right hilar lymph nodes which have significantly increased in size when compared with the previous CT scan and are most likely due to reactive lymphadenopathy. Calcifications are noted in the coronary arteries due to coronary calcific arteriosclerosis. The heart is otherwise normal. The superior mediastinum including the subcarinal bifurcation, both mary and the superior mediastinum are normal. Bone scanning windows through the thorax were reviewed in the coronal and sagittal planes and appear to be normal. The visualized liver and spleen and adrenal glands appear to be normal. CT/Chest without Contrast IMPRESSION: 1. Coronary calcific arteriosclerosis 2. Early pneumonic infiltrate in the left lingula. 3. Extensive pneumonic consolidation in the right lower lobe with post inflammatory reaction right hilar lymphadenopathy. Electronically Signed: Erick Trinidad DO at 7:57 EDT Tel , Service support ,
== END ==
PROVIDERS: PCP Family Medicine; Referring Provider Internal Medicine Pulmonary Disease; Visit Provider Internal Medicine Pulmonary Disease
DX: R91.1 Solitary pulmonary nodule (principal)
CPT/HCPCS: 71250

== ENCOUNTER → 2021-02-16 10:53 | Outpatient (CLI) | payer MEDICARE, OTHER, SELFPAY ==
--- NOTE | 2021-02-16 10:58 | ECHOCS_ITS ---
Reason For Study: MVP Procedure This was a 2D Doppler, Color Flow transthoracic echocardiogram. The study was technically difficult. Contrast injection was performed. Exam performed in department. Left Ventricle Normal LV size. Left ventricular systolic function is normal. The estimated ejection fraction is 60 %. Diastolic function is indeterminate. No regional wall motion abnormalities noted. Right Ventricle Normal RV size. Normal systolic function. Atria The left atrium is mildly enlarged. Normal right atrium. No doppler evidence for ASD. Mitral Valve There is mild mitral annular calcification. Extension of the mitral annular calcification on the base of the posterior mitral valve leaflet. Mild mitral valve prolapse. Trivial mitral valve insufficiency. Tricuspid Valve Normal tricuspid valve. Trivial tricuspid valve insufficiency. Unable to estimate RV systolic pressure/pulmonary artery pressure due to technically difficult study. Aortic Valve Trisinus/trileaflet aortic valve. Mild focal aortic valve calcification. Pulmonic Valve The pulmonic valve is not well visualized. Great Vessels The aortic root is not well visualized. Pericardium/Pleural No pericardial effusion. Medication 22 gauge I.V. with prn adaptor inserted into right arm. Diluted definity 2ml given slow IV push to enhance endocardial definition. MMode/2D Measurements & Calculations LVIDd: 4.8 cm IVSd: 1.2 cm LA dimension: 4.1 cm LVIDs: 3.0 cm LVPWd: 1.2 cm FS: 37.9 % LAV(MOD-bp): 53.6 ml LA A4 area: 18.0 cm2 LAV(MOD-bp) Indexed: 25.4 ml/m2 LAV(MOD-sp2): 61.2 ml LAV(MOD-sp4): 43.6 ml Time Measurements MV dec time: 0.27 sec Doppler Measurements & Calculations MV E max rupert: 69.5 cm/sec Lat Peak E' Rupert: 7.7 cm/sec Med Peak E' Rupert: 5.9 cm/sec MV A max rupert: 115.5 cm/sec E/E' lat: 9.0 E/E' med: 11.7 MV E/A: 0.60 MV V2 max: 108.8 cm/sec MV P1/2t max rupert: 78.0 cm/sec Ao V2 max: 157.3 cm/sec MV max P.7 mmHg MV P1/2t: 112.2 msec Ao max P.9 mmHg MV V2 mean: 43.5 cm/sec MV dec slope: 203.6 cm/sec2 MV mean P.94 mmHg MV V2 VTI: 39.8 cm MVA(P1/2t): 2.0 cm2 LV V1 max: 111.4 cm/sec PA V2 max: 117.5 cm/sec LV V1 max P.0 mmHg ECHO/Echo Complete W/ Contrast Interpretation Summary The study was technically difficult. Contrast injection was performed. Left ventricular systolic function is normal. The estimated ejection fraction is 60 %. The left atrium is mildly enlarged. There is mild mitral annular calcification. Extension of the mitral annular calcification on the base of the posterior mitr al valve leaflet. Mild mitral valve prolapse. Trivial mitral valve insufficiency. Trivial tricuspid valve insufficiency. Mild focal aortic valve calcification. Unable to estimate RV systolic pressure/pulmonary artery pressure due to techni joe difficult study. Diastolic function is indeterminate. Ordering Physician: Alin Joyner Referring Physician: Alin Finley Performed By: Vasu Jara RCS
== END ==
PROVIDERS: PCP Family Medicine; Referring Provider Internal Medicine Cardiovascular Disease; Visit Provider Internal Medicine Cardiovascular Disease
DX: I25.10 Atherosclerotic heart disease of native coronary artery without angina pectoris (principal); I34.1 Nonrheumatic mitral (valve) prolapse; I10 Essential (primary) hypertension; E78.2 Mixed hyperlipidemia; R55 Syncope and collapse
CPT/HCPCS: 93225; 93226; 93306; Q9957; A4216; C8929; J3490

== ENCOUNTER → 2021-08-10 | Outpatient (CLI) | payer MEDICARE, OTHER, SELFPAY | END | disposition home or self-care (01) | LOC: LAB 15:46 | PROVIDERS: PCP Family Medicine; Referring Provider Internal Medicine Pulmonary Disease; Visit Provider Internal Medicine Pulmonary Disease | DX: J47.9 Bronchiectasis, uncomplicated (principal) | CPT/HCPCS: 87070; 87205 ==

== ENCOUNTER → 2021-11-01 | Outpatient (CLI) | payer MEDICARE, OTHER, SELFPAY ==
[2021-11-01 18:24] LABS: Anion Gap 4 (5-15); BUN 28 mg/dL (7-18); BUN/Creat Ratio 23.3 RATIO (10-20); Calcium,Total 8.9 mg/dL (8.5-10.1); Chloride 110 mmol/L (98-107); Cholesterol 139 mg/dL (200); EST Glomerular Filtration Rate 61 mL/min (>60); Est Glom Filt Rate - Afr Amer 74 mL/min (>60); Glucose 92 mg/dL (74-106); High Density Lipoprotein 57 mg/dL; Potassium 4.6 mmol/L (3.5-5.1); Sodium Level 140 mmol/L (136-145); Triglycerides 134 mg/dL; Very Low Density Lipoprotein 27 mg/dL (5-40)
== END | disposition home or self-care (01) ==
LOC: MFPLAB 16:00
PROVIDERS: PCP Family Medicine; Referring Provider Family Medicine; Visit Provider Family Medicine
DX: E78.5 Hyperlipidemia, unspecified (principal); I10 Essential (primary) hypertension
CPT/HCPCS: 36415; 80048; 80061

== ENCOUNTER 2023-03-13 15:10 | Inpatient (IN) | payer MEDICARE, OTHER, SELFPAY ==
[2023-03-13] VITALS (8 sets, daily range): BP systolic 149–190; BP diastolic 56–130; PULSE 78–91; RESP 16–18; TEMP 35.8–37.7; O2SAT 92–97; BMI 30.4; BMI 32.3
--- NOTE | 2023-03-13 15:24 | CT_ITS ---
STUDY: CT BRAIN WITHOUT CONTRAST REASON FOR EXAM: Male, 87 years old. dizziness RADIATION DOSAGE (If Supplied By Facility): CTDIvol = ( 44.99 ) mGy, DLP = ( 796.11 ) mGycm TECHNIQUE: Transaxial CT imaging of the brain was performed without administration of intravenous contrast material. Individualized dose optimization techniques were used for this CT. COMPARISON: No relevant priors. FINDINGS: Normal soft tissue structures. Normal calvarium. Normal size ventricles and extra-axial spaces for the patient''s age. Mild white matter microangiopathic ischemic changes of the cerebral hemispheres. There is a suprasellar nodular lesion measuring 14 x 7 mm. Correlation with MRI if needed Normal basal ganglia and thalami. Normal brainstem. Normal cerebellum. There is no intracranial hemorrhage. There are no findings of an acute ischemic infarction. Normal visualized paranasal sinuses. CT/Brain/Head without Contrast IMPRESSION: Age-related changes of the brain. Suprasellar nodular lesion. Correlation with MRI if needed. Electronically Signed: Alexander Lamas DO at 17:00 EST Reading Location ID and State: [facility] / [place] Tel [phone], Service support ,
--- NOTE | 2023-03-13 15:27 | EDS_ITS ---
HPI History of Present Illness Chief Complaint: Dizziness Informant: patient Narrative Narrative: Presents with not feeling well. I do not have any family in the room at this time. I am hoping to talk with them soon. History is through the patient and he is not the best informant for details. Patient states that he is here because he does not feel well. It might be due to his COVID but he does not know when he was diagnosed with COVID. He does admit to a slight cough but denies shortness of breath. He states he thinks he felt well when he woke up this morning. But he feels dizzy today. When I ask him what this means states he just feels like he might fall over or pass out. There is no vertigo. He states he gets shaky. He he states he feels weak all over but he cannot lateralize it to 1 side. He has no headache. He has no visual change. He denies any recent trauma. He states he is living with his sister currently until Monday when he will be feeling better. But he cannot tell me how long he has been living with his sister. He knew where he was and his date of . He thought it was February 2022. He could not tell me the president. I also note record that he has had multiple cancers. I do not know if any of these were metastatic. [facility] Medical History Atherosclerotic heart disease of [place] coronary artery without angina pectoris Bladder cancer Chest pain Essential hypertension History of bladder cancer History of lung cancer in adulthood History of prostate cancer Hypertension Lung cancer Mixed hyperlipidemia Near syncope Nonrheumatic mitral (valve) prolapse VERONICA (obstructive sleep apnea) Prostate cancer Home Medications pantoprazole 40 mg tablet,delayed release 40 mg PO DAILY 01/26/16 [History Last Taken 12/31/18 10:00] simvastatin 40 mg tablet 40 mg PO QHS 01/26/16 [History Last Taken 12/31/18 22:00] fluticasone furoate 200 mcg-vilanterol 25 mcg/dose inhalation powder (Breo Ellipta) 1 inh inhalation QDAY 06/02/17 [History Last Taken 12/31/18 10:00] multivitamin 1 tab PO QDAY 06/02/17 [History Last Taken 12/31/18 10:00] losartan 50 mg tablet 50 mg PO DAILY 12/02/19 [History Last Taken Unknown] albuterol sulfate 1.25 mg/3 mL solution for nebulization 1.25 mg inhalation ONCE PRN 03/20/20 [History Last Taken Unknown] ascorbate calcium (vitamin C) 500 mg tablet 1,000 mg PO DAILY 03/20/20 [History Last Taken Unknown] cholecalciferol (vitamin D3) 25 mcg (1,000 unit) capsule 25 mcg PO DAILY 03/20/20 [History Last Taken Unknown] guaifenesin 600 mg tablet, extended release 12 hr 1,200 mg PO Q12H PRN congestion 03/20/20 [History Last Taken Unknown] sertraline 100 mg tablet 100 mg PO DAILY 03/20/20 [History Last Taken Unknown] carvedilol 3.125 mg tablet 3.125 mg PO BID #180 tabs 05/26/20 [Rx Last Taken Unknown] ascorbic acid 100 mg-elderberry fruit 50 mg chewable tablet (Airborne (elderberry)) 1 tab PO DAILY 02/05/21 [History Last Taken Unknown] donepezil 5 mg tablet 5 mg PO DAILY 03/13/23 [History Last Taken Unknown] solifenacin 10 mg tablet 10 mg PO DAILY 03/13/23 [History Last Taken Unknown] Allergy/AdvReac Type Severity Reaction Status Date / Time Penicillins Allergy Unknown Verified 11/04/21 14:11 Family History Father Heart disease Mother Colon cancer Surgical History History of lobectomy of lung Social History Smoking Status: Former smoker alcohol intake: never substance use type: does not use ROS ROS ED ROS Narrative A complete review of systems was performed and is negative except as documented in the history of present illness. Some specific details below. Constitutional: He does not think he has had a fever but not sure. He does state that he feels generally weak. EYE: No discharge, visual complaints, or pain. No visual field cut or change in vision per patient. ENT: No difficulty swallowing. No swelling. No sinus pressure or pain. No nasal discharge. No change in hearing. No ear pain. CV: No chest pain, pressure or aching. No palpitations or irregular beats. Patient has not been presyncopal or syncopal but he sometimes feels like he might fall over or pass out. Respiratory: No trouble breathing. Occasional cough. No wheezing. No sputum production. No pain with breathing. It sounds like he may have had COVID recently but I cannot get the date of this from the patient. I cannot get if he was diagnosed with COVID days weeks months or years ago. GI: No abdominal pain. No nausea vomiting diarrhea. No blood in stool. : No frequency dysuria or hematuria. Musculoskeletal: No recent trauma. No pains. No swelling. Skin: No rash. Nondiaphoretic. Neuro: No focal or lateralizing weakness or numbness. No difficulty with speaking. No difficulty understanding speech. No visual loss. Please see history of present illness also. I do not know if his slight confusion and poor ability to give details is new or chronic. Endocrine: No polyuria or polydipsia. EXAM Physical Exam Narrative Exam Narrative: CONSTITUTIONAL: Patient is nontoxic in appearance. The patient looks comfortabl e. Work of breathing looks normal. When I first see him he is sitting in a wheelchair in the room. HEENT: No notable trauma. Mucous membranes do look mildly dry. No sinus tenderness. I am not seeing any facial droop. He does tend to keep his eyes a bit closed unless spoken to. EYES: No conjunctival injection. No proptosis. No pain with range of motion. No pallor. NECK: No meningismus. No JVD. CARDIOVASCULAR: Regular rate. Regular rhythm. No notable murmur. No JVD. He does not sound like he is in atrial fibrillation. RESPIRATORY: No respiratory distress. Breathing is unlabored. No wheezes. No rhonchi. No rales. No pain with a deep breath. Saturations are normal at 95% on room air showing no hypoxia. GASTROINTESTINAL: Not distended. Bowel sounds are normal. No tenderness. No guarding. No rebound. No palpable mass. No bruit. GENITOURINARY: No CVA tenderness. MUSCULOSKELETAL: Atraumatic. NEUROLOGICAL: Patient is alert and oriented to person, place. He knew his date of and was correct. He could not tell me the president. He thought the month was February and the year was 2021. Little bit difficult to get test visual deras but there is no apparent field cut. He was able to hold up his arms and legs without difficulty. Sensation was normal including to simultaneous stimulation. No focal deficit noted. NIH stroke scale is 1 for missing the current month. SKIN: No noted rashes. No diaphoresis. No vesicles noted. No notable pallor. PSYCHIATRIC: Patient is calm. Mood is appropriate. Const Vital Signs: 03/13/23 15:10 03/13/23 15:52 03/13/23 16:51 Temperature 96.5 F L Temperature Source Temporal Pulse Rate 78 90 91 Respiratory Rate 16 16 Blood Pressure 190/130 H 179/74 H 149/62 H Blood Pressure Mean 150 109 91 Pulse Ox 95 92 93 Oxygen Delivery Method Room Air Room Air Room Air MDM MDM MDM Narrative Medical decision making narrative: Was able to talk to the family who came in. This patient does have a history of lung cancer with resection approximately 15 years ago. It was localized and no chemoradiation was needed. He coughs commonly but they do not know if he has been coughing more recently. But the people here now are not the ones with whom he is living. He is visiting his sister up from [place] but he was not able to tell me that. He is due to fly back on Monday. He did tell me he was staying there until Monday. They stated that yesterday he was good. But today he was just weak. They were taking him into the doctor but he felt so weak so they recommended he go to urgent care. Urgent care saw him. They were concerned that this might be a stroke so they sent him here. No one has noted lateralizing weakness. But they do note generalized weakness and note that he is had a couple episodes where he has shaked almost uncontrollably. They do not know if he has had a fever though. My independent interpretation of his chest x-ray does show increased markings in the right and it is read as a right pneumonia. However this could also be the area of his scarring but it seems to be more than his last x-ray. His white count is high at 14,000. My note and EMEA. Mild decrease in pl atelets at 142. Increased neutrophils Electrolytes show mild elevated BUN and BUN to creatinine ratio but no marked abnormalities. Liver function test show no changes. Urinalysis has come back as normal. COVID and influenza are negative. With the patient having chills/rigors, white count and x-ray findings he was treated with for possible pneumonia. We tried to get him up on the edge of the bed. He was too unstable to stand even with 2 people. Just getting up on the edge of the bed he had saturations at 89% on room air and that was without any real activity or walking. Patient is not safe to go home. I have hospitalist on page. Although this patient presented with weakness, I do not think this represents a stroke. He has no history or exam findings of a lateralizing deficit. I think this is more of a generalized illness and likely more due to pneumonia. Lab Data Attestation: I reviewed the patient's lab results. Labs: Laboratory Results - last 24 hr 03/13/23 03/13/23 15:47 18:00 WBC 14.0 H RBC 4.04 L Hgb 11.9 L Hct 37.2 L MCV 92.1 MCH 29.5 MCHC 32.0 RDW Std Deviation 43.2 RDW Coeff of [place] 12.8 Plt Count 142 L MPV 12.4 H Immature Gran % (Auto) 0.600 Neut % (Auto) 71.9 H Lymph % (Auto) 10.6 L [place] % (Auto) 14.8 H Eos % (Auto) 1.8 Baso % (Auto) 0.3 Absolute Neuts (auto) 10.1 H Absolute Lymphs (auto) 1.48 Nucleated RBC % 0 Differential Comment SEE COMMENT Diff Path Review May foll Platelet Estimate ADEQUATE Plt Morphology Comment LARGE RBC Morphology N CHROM Anisocytosis RARE Macrocytosis RARE PT 14.6 INR 1.1 APTT 25.5 Sodium 139 Potassium 4.5 Chloride 107 Carbon Dioxide 29.0 Anion Gap 3 L BUN 28 H Creatinine 1.22 Estim Creat Clear Calc 41.27 Est GFR (MDRD) Af Amer 72 Est GFR (MDRD) Non-Af 60 BUN/Creatinine Ratio 23.0 H Glucose 122 H Lactic Acid 1.0 Calcium 9.0 Total Bilirubin 0.40 AST 16 ALT 18 Alkaline Phosphatase 122 H Total Protein 8.1 Albumin 3.4 Globulin 4.7 H Albumin/Globulin Ratio 0.7 L Urine Color Yellow Urine Clarity Clear Urine pH 6.0 Ur Specific [place] 1.015 Urine Protein 15 H Urine Glucose (UA) Normal Urine Ketones Negative Urine Occult Blood 25 H Urine Nitrite Negative Urine Bilirubin Negative Urine Urobilinogen Normal Ur Leukocyte Esterase Negative Urine RBC 0-5 SEEN Urine WBC 0 SEEN Ur Squamous Epith Cells 0 SEEN Urine Bacteria 0 SEEN Urine Mucus 0 SEEN Radiography Diagnostic Testing: Clinical Impression(s) from Imaging Studies Brain CT 03/13/23 15:24 IMPRESSION: Age-related changes of the brain. Suprasellar nodular lesion. Correlation with MRI if needed. Electronically Signed: Alexander Lamas DO at 17:00 EST Reading Location ID and State: [facility] / [place] Tel [phone], Service support , Chest X-Ray 03/13/23 16:35 IMPRESSION: Focal right basilar infiltrate Electronically Signed: Alexander Lamas DO at 17:02 EST , Discharge Plan Dx/Rx/DC Orders Clinical Impression: Generalized weakness, Leukocytosis, Community acquired pneumonia Disposition Disposition: Acute Care Hospital [facility] [place] [facility]
[2023-03-13 15:59] LABS: Absolute Lymphocyte Count 1.48 X10^3/uL (0.83-4.51); Absolute Neutrophil Count 10.1 X10^3/uL (2.0-7.7); Basophil# 0.04 X10^3/uL; Basophil% 0.3 % (0-1); Eosinophil# 0.25 X10^3/uL; Eosinophils% 1.8 % (0-5); Hematocrit 37.2 % (40-54); Hemoglobin 11.9 g/dL (13.0-16.5); Lymphocyte # 1.48 X10^3/ul (0.83-4.51); Lymphocyte % 10.6 % (19-41); Mean Corpuscular Hgb 29.5 pg (27.0-32.0); Mean Corpuscular Volume 92.1 fL (80-94); Mean Platelet Vol. 12.4 fl (6.2-12.0); Monocyte# 2.07 X10^3/uL; Monocyte% 14.8 % (0-10); NRBC Flagged by Analyzer 0 % (0-5); Neutrophil # 10.06 X10^3/uL (2.7-7.7); Neutrophil % 71.9 % (47-70); POSITIVE DIFFERENTIAL YES; Platelet Count 142 K/mm3 (150-450); RBC Distribution Width CV 12.8 % (11.6-14.6); RBC Distribution Width SD 43.2 fl (35.1-43.9); Red Blood Count 4.04 M/mm3 (4.6-6.2)
[2023-03-13] MEDS: 0.9% Normal Saline (500mL Bag) 500 ML 1000 ML IV (16:13)
[2023-03-13 16:14] LABS: International Normalized Ratio 1.1; Partial Thromboplast Time 25.5 Seconds (24.1-36.2); Prothrombin Time (Protime)PT. 14.6 SECONDS (11.7-14.9)
[2023-03-13 16:15] LABS: Differential Indicated SCAN CRITERIA MET
[2023-03-13 16:21] LABS: Platelet Estimate ADEQUATE (ADEQ); Platelet Morphology LARGE; Red Cell Morphology N CHROM NORMAL (NORM C&C)
[2023-03-13 16:22] LABS: Anisocytosis RARE; Macrocytosis RARE
[2023-03-13 16:25] LABS: ALB/GLOB Ratio 0.7 RATIO (0.9-2.4); AST(SGOT) 16 U/L (15-37); Alanine Aminotransfer ALT/SGPT 18 U/L (16-61); Albumin, Serum 3.4 g/dL (3.2-5.0); Alkaline Phosphatase 122 U/L (45-117); Anion Gap 3 (5-15); BUN 28 mg/dL (7-18); Chloride 107 mmol/L (98-107); Creatinine, Serum 1.22 mg/dL (0.70-1.30); EST Glomerular Filtration Rate 60 mL/min (>60); Est Glom Filt Rate - Afr Amer 72 mL/min (>60); Estimated Creatinine Clearance 41.27 ml/min; Globulin 4.7 g/dL (2.2-4.2); Glucose 122 mg/dL (74-106); Potassium 4.5 mmol/L (3.5-5.1); Protein, Total 8.1 g/dL (6.4-8.2); Sodium Level 139 mmol/L (136-145)
--- NOTE | 2023-03-13 16:35 | RAD_ITS ---
INDICATION: cough EXAMINATION/TECHNIQUE: X-RAY - XR Chest 1 View COMPARISON: July 17, 2020 FINDINGS: LINES/DEVICES: None. LUNGS: Focal right basilar infiltrate. No pneumothorax. MEDIASTINUM AND CARDIOVASCULAR STRUCTURES: Cardiac silhouette not enlarged. Central airways and mediastinal contour are unremarkable. BONES AND SOFT TISSUES: Unremarkable. RAD/Chest 1 View (Portable) IMPRESSION: Focal right basilar infiltrate Electronically Signed: Alexander Lamas DO at 17:02 EST ,
[2023-03-13] MEDS: levoFLOXacin IV 750 MG/150 ML BAG 100 MG IV (17:53)
[2023-03-13 18:07] LABS: Bacteria 0 SEEN /hpf (None Seen); Mucous, Urine 0 SEEN /hpf (<or=2+); Squamous Epithelial Cells - UA 0 SEEN /hpf (0-5); White Blood Cells 0 SEEN /hpf (0-5)
[2023-03-13 18:09] LABS: Color, Urine Yellow (Yellow); Glucose, Dipstick Normal (Normal); Ketone-Dipstick Negative (Negative); Leukocyte Esterase-Dipstick Negative /ul (Negative); Nitrite-Dipstick Negative (Negative); Occult Blood-Urine 25 /ul (Negative); Protein-Dipstick 15 mg/dl (Negative); Specific Gravity, Urine 1.015 (1.002-1.030); Urine Bilirubin Dipstick Negative (Negative); Urine Clarity Clear (Clear); Urine Urobilinogen Normal (Normal)
[2023-03-13 18:15] LABS: Red Blood Cells-Urine 0-5 SEEN /hpf (0-5)
--- NOTE | 2023-03-13 19:20 | PCM.HP.STD ---
HPI - General General Date of Admission: 03/13/23 HPI Narrative ROULA KHAN, is a 87 M who presents from home with altered mental status and weakness. He is unable to provide any significant history and family is unsure as to duration of symptoms. The daughter who is present at bedside states that when she is last saw him on he was okay but that her [id number] who had seen him yesterday said that he was very tired and was sleeping during her visit intermittently. 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 His weakness is generalized. He was sent to urgent care but was unable to get out of the car so they brought him straight here to the ER. He does have a leukocytosis to 14 with a right lower lobe consolidation. He does have a history of lung cancer per the daughter and both lungs and he had resections in his left lower lobe as well as his right upper lobe. Because of his presentation with fatigue and confusion a CT of the brain was performed which demonstrated a 14 x 7 mm suprasellar nodule which is new according to the family. [facility] Medical History Atherosclerotic heart disease of [place] coronary artery without angina pectoris Bladder cancer Chest pain Essential hypertension History of bladder cancer History of lung cancer in adulthood History of prostate cancer Hypertension Lung cancer Mixed hyperlipidemia Near syncope Nonrheumatic mitral (valve) prolapse VERONICA (obstructive sleep apnea) Prostate cancer Home Medications pantoprazole 40 mg tablet,delayed release 40 mg PO DAILY 01/26/16 [History Last Taken 12/31/18 10:00] simvastatin 40 mg tablet 40 mg PO QHS 01/26/16 [History Last Taken 12/31/18 22:00] fluticasone furoate 200 mcg-vilanterol 25 mcg/dose inhalation powder (Breo Ellipta) 1 inh inhalation QDAY 06/02/17 [History Last Taken 12/31/18 10:00] multivitamin 1 tab PO QDAY 06/02/17 [History Last Taken 12/31/18 10:00] losartan 50 mg tablet 50 mg PO DAILY 03/11/19 [History Last Taken Unknown] albuterol sulfate 1.25 mg/3 mL solution for nebulization 1.25 mg inhalation ONCE PRN 03/20/20 [History Last Taken Unknown] ascorbate calcium (vitamin C) 500 mg tablet 1,000 mg PO DAILY 03/20/20 [History Last Taken Unknown] cholecalciferol (vitamin D3) 25 mcg (1,000 unit) capsule 25 mcg PO DAILY 03/20/20 [History Last Taken Unknown] guaifenesin 600 mg tablet, extended release 12 hr 1,200 mg PO Q12H PRN congestion 03/20/20 [History Last Taken Unknown] sertraline 100 mg tablet 100 mg PO DAILY 03/20/20 [History Last Taken Unknown] carvedilol 3.125 mg tablet 3.125 mg PO BID #180 tabs 05/26/20 [Rx Last Taken Unknown] ascorbic acid 100 mg-elderberry fruit 50 mg chewable tablet (Airborne (elderberry)) 1 tab PO DAILY 02/05/21 [History Last Taken Unknown] donepezil 5 mg tablet 5 mg PO DAILY 03/13/23 [History Last Taken Unknown] solifenacin 10 mg tablet 10 mg PO DAILY 03/13/23 [History Last Taken Unknown] Allergy/AdvReac Type Severity Reaction Status Date / Time Penicillins Allergy Unknown Verified 11/04/21 14:11 Family History Father Heart disease Mother Colon cancer Surgical History History of lobectomy of lung Social History Smoking Status: Former smoker alcohol intake: never substance use type: does not use ROS Review of Systems ROS Unobtainable: due to mental status Vital Signs Vital Signs Vital Signs: 03/13/23 15:10 03/13/23 15:52 03/13/23 16:51 Temperature 96.5 F L Temperature Source Temporal Pulse Rate 78 90 91 Respiratory Rate 16 16 Blood Pressure 190/130 H 179/74 H 149/62 H Blood Pressure Mean 150 109 91 Pulse Ox 95 92 93 Oxygen Delivery Method Room Air Room Air Room Air 03/13/23 18:48 03/13/23 18:49 Temperature Temperature Source Pulse Rate 85 85 Respiratory Rate 16 18 Blood Pressure Blood Pressure Mean Pulse Ox 93 93 Oxygen Delivery Method Room Air Weight Weight: 199 lb 15.348 oz Body Mass Index (BMI) 30.4 Physical Exam Narrative General: Drowsy but alert to voice, Oriented x2, Cooperative, No apparent distress HEENT: Atraumatic, PERRLA, EOMI, Normocephalic Oral: Moist Mucosa Neck: Supple, No JVD Lungs: Diminished, Normal air movement, No rhonchi, No wheeze, No rales, faint crackles on the right Cardiovascular: Regular rate, Regular Rhythm, Normal S1, Normal S2, No murmurs Abdomen: Soft, Non Tender, Non-Distended, No Hepato-splenomegaly Extremities: No edema, Capillary Refill Less than 3 Seconds Skin: No rashes, No breakdown Musculoskeletal: No Tenderness to Palpation of Joints or Extremities Neurological: Moves all extremities, no focal findings, Sensory exam intact to light touch and pain Psych/Mental Status: Flat affect Results Lab / Micro Data 03/13/23 15:47 03/13/23 15:47 Labs: Laboratory Results - last 24 hr 03/13/23 15:47: WBC 14.0 H, RBC 4.04 L, Hgb 11.9 L, Hct 37.2 L, MCV 92.1, MCH 29.5, MCHC 32.0, RDW Std Deviation 43.2, RDW Coeff of [place] 12.8, Plt Count 142 L, MPV 12.4 H, Immature Gran % (Auto) 0.600, Neut % (Auto) 71.9 H, Lymph % (Auto) 10.6 L, [place] % (Auto) 14.8 H, Eos % (Auto) 1.8, Baso % (Auto) 0.3, Absolute Neuts (auto) 10.1 H, Absolute Lymphs (auto) 1.48, Nucleated RBC % 0, Differential Comment SEE COMMENT, Diff Path Review May foll, Platelet Estimate ADEQUATE, Plt Morphology Comment LARGE, RBC Morphology N CHROM, Anisocytosis RARE, Macrocytosis RARE, PT 14.6, INR 1.1, APTT 25.5, Sodium 139, Potassium 4.5, Chloride 107, Carbon Dioxide 29.0, Anion Gap 3 L, BUN 28 H, Creatinine 1.22, Estim Creat Clear Calc 41.27, Est GFR (MDRD) Af Amer 72, Est GFR (MDRD) Non-Af 60, BUN/Creatinine Ratio 23.0 H, Glucose 122 H, Lactic Acid 1.0, Calcium 9.0, Total Bilirubin 0.40, AST 16, ALT 18, Alkaline Phosphatase 122 H, Total Protein 8.1, Albumin 3.4, Globulin 4.7 H, Albumin/Globulin Ratio 0.7 L 03/13/23 18:00: Urine Color Yellow, Urine Clarity Clear, Urine pH 6.0, Ur Specific [place] 1.015, Urine Protein 15 H, Urine Glucose (UA) Normal, Urine Ketones Negative, Urine Occult Blood 25 H, Urine Nitrite Negative, Urine Bilirubin Negative, Urine Urobilinogen Normal, Ur Leukocyte Esterase Negative, Urine RBC 0-5 SEEN, Urine WBC 0 SEEN, Ur Squamous Epith Cells 0 SEEN, Urine Bacteria 0 SEEN, Urine Mucus 0 SEEN Micro: Microbiology 03/13/23 16:15 Nasal Secretion SARS-CoV-2 & FLU Antigen (Rapid) - Final Imagaing Radiology Impression Brain CT 03/13/23 15:24 IMPRESSION: Age-related changes of the brain. Suprasellar nodular lesion. Correlation with MRI if needed. Electronically Signed: Alexander Lamas DO at 17:00 EST , Chest X-Ray 03/13/23 16:35 IMPRESSION: Focal right basilar infiltrate Electronically Signed: Alexander Lamas DO at 17:02 EST , Assessment & Plan Assessment/Plan (1) Community acquired pneumonia: (2) Generalized weakness: PLAN: Plan 1. Acute metabolic encephalopathy secondary to community-acquired pneumonia with generalized weakness ? He does have a history of dementia so delirium is also in the picture from an infectious etiology ? Continue with Levaquin ? We will obtain a sputum culture ? Will obtain Legionella and strep antigens ? PT/OT for evaluation 2. HTN/HLD ? Blood pressure stable ? Can resume his home blood pressure medications and will monitor and make adjustments as necessary ? We will continue with his Lipitor 3. 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 Can resume his home inhalers ? No wheezing on exam to indicate an exacerbation ? The daughter will bring his home CPAP with his settings for tonight 4. Anxiety/depression/dementia ? Stable ? Continue with his home medications 5. GERD ? Stable ? Continue with PPI 6. Suprasellar nodule ? This 14 x 7 mm, does not appear to have any surrounding edema I did discuss this with family and requested that they follow-up as an outpatient for repeat CT of the brain versus MRI as an outpatient DVT: Lovenox 76 minutes was spent on direct patient care, including documentation as well as chart review and collaboration with colleagues Charges/Coding Visit Charges Inpatient E&M: 00414 Init Hosp L3
[2023-03-13] MEDS: 0.9% Normal Saline (250mL Bag) 250 ML 15 ML IV (21:37)
[2023-03-13] MEDS: Atorvastatin Calcium 20 MG Tablet PO (22:34)
[2023-03-13] MEDS: Ipratropium/Albuterol Sulfate 3 ML AMPUL.NEB INHALATION (23:37)
[2023-03-14 05:47] VITALS: BP 114/46; PULSE 65; RESP 16; TEMP 36.1; O2SAT 94
[2023-03-14 07:28] LABS: Absolute Lymphocyte Count 1.98 X10^3/uL (0.83-4.51); Absolute Neutrophil Count 20.9 X10^3/uL (2.0-7.7); Basophil# 0.06 X10^3/uL; Basophil% 0.2 % (0-1); Eosinophil# 0.08 X10^3/uL; Eosinophils% 0.3 % (0-5); Hematocrit 31.9 % (40-54); Hemoglobin 10.4 g/dL (13.0-16.5); Lymphocyte # 1.98 X10^3/ul (0.83-4.51); Lymphocyte % 6.7 % (19-41); Mean Corp Hgb Conc 32.6 g/dL (32-36); Mean Corpuscular Hgb 29.4 pg (27.0-32.0); Mean Corpuscular Volume 90.1 fL (80-94); Mean Platelet Vol. 11.9 fl (6.2-12.0); Monocyte# 5.33 X10^3/uL; NRBC Flagged by Analyzer 0 % (0-5); Neutrophil # 20.89 X10^3/uL (2.7-7.7); Neutrophil % 70.5 % (47-70); POSITIVE DIFFERENTIAL YES; Platelet Count 119 K/mm3 (150-450); RBC Distribution Width CV 12.9 % (11.6-14.6); RBC Distribution Width SD 42.7 fl (35.1-43.9); Red Blood Count 3.54 M/mm3 (4.6-6.2); White Blood Count 29.6 K/mm3 (4.4-11.0)
[2023-03-14 07:33] LABS: Differential Indicated SCAN CRITERIA MET
[2023-03-14 07:50] LABS: Anion Gap 6 (5-15); BUN 27 mg/dL (7-18); BUN/Creat Ratio 20.5 RATIO (10-20); Calcium,Total 8.4 mg/dL (8.5-10.1); Chloride 107 mmol/L (98-107); Creatinine, Serum 1.32 mg/dL (0.70-1.30); EST Glomerular Filtration Rate 55 mL/min (>60); Est Glom Filt Rate - Afr Amer 66 mL/min (>60); Estimated Creatinine Clearance 38.14 ml/min; Glucose 148 mg/dL (74-106); Potassium 4.1 mmol/L (3.5-5.1); Sodium Level 137 mmol/L (136-145)
[2023-03-14 08:00] VITALS: BP 115/54; PULSE 62; RESP 16; TEMP 36.6; O2SAT 92
[2023-03-14] MEDS: Carvedilol 3.125 MG TABLET PO ×2 (08:33→16:54)
[2023-03-14] MEDS: Pantoprazole Sodium 40 MG Tablet PO (08:33)
[2023-03-14] MEDS: Donepezil HCl 5 MG Tablet PO (08:34)
[2023-03-14] MEDS: Losartan Potassium 50 MG Tablet PO (08:34)
[2023-03-14] MEDS: Sertraline 100 MG Tablet PO (08:35)
[2023-03-14] MEDS: Cholecalciferol (VIT D3) 25 MCG TABLET (1,000 UNITS) PO (08:35)
--- NOTE | 2023-03-14 10:08 | CASEMGMT ---
BRADLEY SERRATO Assessment: Face to Face with pt for initial transition planning/care coordination assessment. BRADLEY SERRATO introduced self and role at [facility], pt voices understanding and consents to assessment. Pt is A&O x3 and answers all questions appropriately at this time. Pt sitting up in chair with oxygen on in no distress, family at bedside. Care providers, pharmacy, and demographics verified/updated. Admitting Dx: pneumonia PCP:Malia Specialists:Josiah pulkrystal; ANTONIOG, cardio Preferred Pharmacy: [facility] Insurance: [facility], [id number] Supp Prescription Benefit: yes LNOK: Linn Rader, dtr; Ana Scruggs dtr Living Arrangements: Pt lives in [place] in [place]. Pt reports he is I in ADL's. [place] provides 3 meals a day. Pt does own laundry. Pt visiting in [place] and currently staying with sister in a single story home with 1 step to enter. Pt plans to go to [place] on Monday but is able to stay with sister if needed until safe to return home. Pt is on the waiting list at [facility] where he plans to move in the Spring. Transportation: Pt drives self and denies concerns with transportation. DME:CPAP, cane and FWW which are in [place] HHC/SNF: Therapy in [place], denies hx of SNF Pt states no concerns with going home at time of dc. Family states pt has improved greatly since last evening. Discussed dc planning to home in [place] vs staying with sister. RN ROJELIO will follow therapy and oxygen needs. Pt states no further concerns/needs. Advised pt to ask CM if any further question/concerns/needs arise, voices understanding. Pt Goal: Home to [place] on Monday Plan: TBD, pending therapy and course of hospitalization
[2023-03-14] MEDS: Enoxaparin 40 MG/0.4 ML Syringe SC (10:26)
[2023-03-14 11:11] VITALS: O2SAT 90
--- NOTE | 2023-03-14 11:36 | MRI_ITS ---
HISTORY: suprasellar nodule. TECHNIQUE: Multiplanar and multisequence MR images of the brain were obtained before and after the intravenous administration of 19 cc [facility] scan. 371 images. COMPARISON: CT prior day, 01/14/2019. FINDINGS: BRAIN PARENCHYMA: Multiple foci and small zones of increased T2 FLAIR signal in the bilateral cerebral white matter. No abnormal focus of restricted diffusion. No acute intracranial hemorrhage identified. CSF SPACES: 1.1 cm lobulated, circumscribed, homogeneously enhancing, and dural based suprasellar lesion separate from the pituitary gland and pituitary stalk, abutting the optic chiasm without significant deviation. Mild generalized volume loss. No significant midline shift or other mass effect.No extra-axial fluid collection. VASCULAR SYSTEM: Major intracranial flow voids are maintained. PARANASAL SINUSES AND MASTOID AIR CELLS: No significant air fluid levels. ORBITS: Bilateral lens resections. 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 No evidence for acute infarct. Mild chronic involutional and white matter changes. Electronically Signed: Shelby Singleton MD at 15:07 EST ,
--- NOTE | 2023-03-14 13:21 | PN_ITS ---
Subjective Subjective Patient seen and examined. He was admitted with a complaint of confusion and weakness. 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 He was therefore brought in to the ED. He is being managed for pneumonia. He is on IV antibiotics. He had no complaints today and said he felt much bree. He denied any fever, chills, shortness of breath, palpitations, dizziness, nausea, vomiting or any other symptoms is otherwise negative. Objective Data Objective Data Vital Signs: Vital Signs Temp Pulse Resp BP Pulse Ox O2 Del Method O2 Flow Rate 97.8 F 62 16 115/54 L 90 Nasal Cannula 2 03/14/23 08:00 03/14/23 08:00 03/14/23 08:00 03/14/23 08:00 03/14/23 11:11 03/14/23 08:10 03/14/23 08:10 Oxygen Flow Rate (L/min) 2 Oxygen Delivery Method Nasal Cannula Weight: 213 lb 13.574 oz Body Mass Index (BMI) 32.3 Intake & Output: Intake and Output for Last 24 Hours 03/12/23 03/13/23 03/14/23 23:59 23:59 23:59 Intake Total 750 / 750 42 / 42 Output Total 200 / 200 200 / 200 Balance 550 / 550 -158 / -158 Lab / Micro Data 03/14/23 07:02 03/14/23 07:02 Labs: Laboratory Results - last 24 hr 03/13/23 15:47: WBC 14.0 H, RBC 4.04 L, Hgb 11.9 L, Hct 37.2 L, MCV 92.1, MCH 29.5, MCHC 32.0, RDW Std Deviation 43.2, RDW Coeff of Perry 12.8, Plt Count 142 L, MPV 12.4 H, Immature Gran % (Auto) 0.600, Neut % (Auto) 71.9 H, Lymph % (Auto) 10.6 L, [place] % (Auto) 14.8 H, Eos % (Auto) 1.8, Baso % (Auto) 0.3, Absolute Neuts (auto) 10.1 H, Absolute Lymphs (auto) 1.48, Nucleated RBC % 0, Differential Comment SEE COMMENT, Diff Path Review May foll, Platelet Estimate ADEQUATE, Plt Morphology Comment LARGE, RBC Morphology N CHROM, Anisocytosis RARE, Macrocytosis RARE, PT 14.6, INR 1.1, APTT 25.5, Sodium 139, Potassium 4.5, Chloride 107, Carbon Dioxide 29.0, Anion Gap 3 L, BUN 28 H, Creatinine 1.22, Estim Creat Clear Calc 41.27, Est GFR (MDRD) Af Amer 72, Est GFR (MDRD) Non-Af 60, BUN/Creatinine Ratio 23.0 H, Glucose 122 H, Lactic Acid 1.0, Calcium 9.0, Total Bilirubin 0.40, AST 16, ALT 18, Alkaline Phosphatase 122 H, Total Protein 8.1, Albumin 3.4, Globulin 4.7 H, Albumin/Globulin Ratio 0.7 L 03/13/23 18:00: Urine Color Yellow, Urine Clarity Clear, Urine pH 6.0, Ur Specific [place] 1.015, Urine Protein 15 H, Urine Glucose (UA) Normal, Urine Ketones Negative, Urine Occult Blood 25 H, Urine Nitrite Negative, Urine Bilirubin Negative, Urine Urobilinogen Normal, Ur Leukocyte Esterase Negative, Urine RBC 0-5 SEEN, Urine WBC 0 SEEN, Ur Squamous Epith Cells 0 SEEN, Urine Bacteria 0 SEEN, Urine Mucus 0 SEEN 03/14/23 07:02: WBC 29.6 H, RBC 3.54 L, Hgb 10.4 L, Hct 31.9 L, MCV 90.1, MCH 29.4, MCHC 32.6, RDW Std Deviation 42.7, RDW Coeff of [place] 12.9, Plt Count 119 L, MPV 11.9, Immature Gran % (Auto) 4.300 H, Neut % (Auto) 70.5 H, Lymph % (Auto) 6.7 L, [place] % (Auto) 18.0 H, Eos % (Auto) 0.3, Baso % (Auto) 0.2, Absolute Neuts (auto) 20.9 H, Absolute Lymphs (auto) 1.98, Nucleated RBC % 0, Diff Path Review August, Sodium 137, Potassium 4.1, Chloride 107, Carbon Dioxide 24.0, Anion Gap 6, BUN 27 H, Creatinine 1.32 H, Estim Creat Clear Calc 38.14, Est GFR (MDRD) Af Amer 66, Est GFR (MDRD) Non-Af 55 L, BUN/Creatinine Ratio 20.5 H, Glucose 148 H, Calcium 8.4 L Micro: Microbiology 12/04/23 18:00 Urine, Catheterized Urine Culture - Preliminary Gram negative mic Gram positive organism 03/13/23 18:00 Urine, Random Legionella Antigen - Final 03/13/23 18:00 Urine, Random Streptococcus pneumoniae Antigen (M - Final 03/13/23 16:15 Nasal Secretion SARS-CoV-2 & FLU Antigen (Rapid) - Final Radiography Diagnostic Testing: Radiology Impression Brain CT 03/13/23 15:24 IMPRESSION: Age-related changes of the brain. Suprasellar nodular lesion. Correlation with MRI if needed. Electronically Signed: Aleaxnder Lamas DO at 17:00 EST , Chest X-Ray 03/13/23 16:35 IMPRESSION: Focal right basilar infiltrate Electronically Signed: Alexander Lamas DO at 17:02 EST , Physical Exam Const alert, oriented x3 and no apparent distress General Appearance: cooperative and well developed HEENT normocephalic, head/scalp atraumatic, moist oral mucous membranes and oropharynx normal Eyes EOMs intact bilaterally Neck no lymphadenopathy and supple Lymph Lymphatic: no lymphadenopathy noted and no lymphedema noted Resp Resp Narrative: diminished breath sounds bibasally, no wheezes or crackles. Cardio regular rate, regular rhythm, S1 normal heart sound, S2 normal heart sound and no murmurs GI normal to inspection, nondistended, normoactive bowel sounds, soft to palpation, non-tender and non-distended Extremity normal capillary refill, no clubbing, cyanosis or edema and no calf tenderness General Extremity: no tenderness to palpation of joints or extremities Skin General Skin Exam: no breakdown Neuro CN's II-XII intact bilaterally, no focal motor deficits, no sensory deficits noted and deep tendon reflexes 2+ bilaterally Motor Exam: strength 5/5 throughout and general weakness Psych thought process normal, cooperative and affect normal Appearance: appropriate Assessment & Plan Assessment/Plan (1) Community acquired pneumonia: (2) Leukocytosis: PLAN: Plan #Acute encephalopathy due to community acquired pneumonia * CXR showed right lower lobe pneumonia * on IV levaquin * urine for strep and legionella pending * breathing treatment with bronchodilators * titrate oxygen to maintain sats >90% * wbc markedly elevated to 29.6, from 14 yesterday * #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 #COPD: not in excerbation. Breathing treatment with bronchodilators. #Dementia: on donepezil #GERD: on PPI DVT Prophylaxis; lovenox Charges/Coding Visit Charges Inpatient E&M: 78180 Subs Hosp L2
[2023-03-14 13:34] LABS: Pathologist Review Reviewed
--- NOTE | 2023-03-14 13:53 | NURSING ---
1240-pt off unit via w/c for mri
[2023-03-14 14:00] VITALS: BP 108/50; PULSE 54; RESP 16; TEMP 36.6; O2SAT 98
[2023-03-14 14:37] LABS: Pathologist Review Reviewed
[2023-03-14] MEDS: Atorvastatin Calcium 20 MG Tablet PO (20:52)
[2023-03-14 21:00] VITALS: BP 113/55; PULSE 55; RESP 16; TEMP 36.4; O2SAT 94
[2023-03-15] VITALS (8 sets, daily range): BP systolic 121–144; BP diastolic 50–67; PULSE 50–58; RESP 16–18; TEMP 36.4–36.7; O2SAT 93–100
[2023-03-15] MEDS: Ipratropium/Albuterol Sulfate 3 ML AMPUL.NEB INHALATION (06:46)
[2023-03-15] MEDS: Losartan Potassium 50 MG Tablet PO (08:06)
[2023-03-15] MEDS: Sertraline 100 MG Tablet PO (08:06)
[2023-03-15] MEDS: Cholecalciferol (VIT D3) 25 MCG TABLET (1,000 UNITS) PO (08:06)
[2023-03-15] MEDS: Pantoprazole Sodium 40 MG Tablet PO (08:07)
[2023-03-15] MEDS: Donepezil HCl 5 MG Tablet PO (08:07)
[2023-03-15] MEDS: Carvedilol 3.125 MG TABLET PO ×2 (08:07→17:28)
[2023-03-15] MEDS: Enoxaparin 40 MG/0.4 ML Syringe SC (08:07)
[2023-03-15 08:47] LABS: Absolute Lymphocyte Count 2.87 X10^3/uL (0.83-4.51); Absolute Neutrophil Count 12.9 X10^3/uL (2.0-7.7); Basophil# 0.03 X10^3/uL; Basophil% 0.2 % (0-1); Eosinophil# 0.08 X10^3/uL; Eosinophils% 0.4 % (0-5); Hematocrit 34.4 % (40-54); Lymphocyte # 2.87 X10^3/ul (0.83-4.51); Lymphocyte % 15.3 % (19-41); Mean Corpuscular Hgb 29.7 pg (27.0-32.0); Mean Platelet Vol. 12.7 fl (6.2-12.0); Monocyte# 2.73 X10^3/uL; Monocyte% 14.5 % (0-10); NRBC Flagged by Analyzer 0 % (0-5); Neutrophil # 12.93 X10^3/uL (2.7-7.7); Neutrophil % 68.9 % (47-70); POSITIVE DIFFERENTIAL YES; Platelet Count 131 K/mm3 (150-450); RBC Distribution Width CV 13.2 % (11.6-14.6); RBC Distribution Width SD 44.9 fl (35.1-43.9); White Blood Count 18.8 K/mm3 (4.4-11.0)
[2023-03-15 08:49] LABS: Differential Indicated SCAN CRITERIA MET
[2023-03-15 09:20] LABS: Anion Gap 4 (5-15); BUN 36 mg/dL (7-18); BUN/Creat Ratio 29.3 RATIO (10-20); Calcium,Total 8.7 mg/dL (8.5-10.1); Chloride 110 mmol/L (98-107); Creatinine, Serum 1.23 mg/dL (0.70-1.30); EST Glomerular Filtration Rate 59 mL/min (>60); Est Glom Filt Rate - Afr Amer 72 mL/min (>60); Estimated Creatinine Clearance 40.93 ml/min; Glucose 79 mg/dL (74-106); Sodium Level 139 mmol/L (136-145)
[2023-03-15] MEDS: 0.9% Saline Lock 10 ML Syringe IV (10:41)
[2023-03-15] MEDS: levoFLOXacin IV 750 MG/150 ML BAG 100 MG IV (10:41)
--- NOTE | 2023-03-15 14:29 | CASEMGMT ---
RN CM into pt room, pt dtr present. Spoke with pt nurse and his oxygen level dropped on amb. Plan for pt to stay tonight. As of now, pt plans to go to sister's home to stay. There is a FWW that pt can use there.
--- NOTE | 2023-03-15 15:02 | CASEMGMT ---
Social Work SW met with pt to discuss advance directives.? Pt is uncertain if he has completed documents, but states his dgt Ana would have this information. With permission from pt, phone call to dgt Ana who confirms she is the HCPOA and that pt has a living will. Ana will be in later today and bring the documents in for pt's medical record. REYNALDO Alcantar
--- NOTE | 2023-03-15 17:02 | PN.HOSP_ITS ---
Reason for Visit Reason for Visit: Diagnoses Elevated white blood cell count, unspecified (03/13/23) Pneumonia, unspecified organism (03/13/23) Weakness (03/13/23) Subjective Subjective Patient was seen and examined today, I talked with his daughter who was in the room at the time my examination, patient was walked in the [place] on his home oxygen setting but had a desaturation into the 80s, patient appeared unsteady while walking-I have elected to get PT and OT to see the patient for evaluation. Patient's white blood cell count today was 18.8. His urine culture grew out Citrobacter and beta strep. Objective Data Objective Data Vital Signs: Vital Signs Temp Pulse Resp BP Pulse Ox O2 Del Method O2 Flow Rate 97.5 F L 51 L 18 124/50 H 97 Room Air 2 03/15/23 14:00 03/15/23 14:00 03/15/23 14:00 03/15/23 14:00 03/15/23 14:00 03/15/23 14:00 03/14/23 08:10 Oxygen Flow Rate (L/min) 2 Oxygen Delivery Method Room Air Weight: 97 kg Body Mass Index (BMI) 32.3 Intake & Output: Intake and Output for Last 24 Hours 03/13/23 03/14/23 03/15/23 23:59 23:59 23:59 Intake Total 750 / 750 42 / 42 150 / 150 Output Total 200 / 200 700 / 700 1000 / 1000 Balance 550 / 550 -658 / -658 -850 / -850 Lab / Micro Data 03/15/23 06:55 03/15/23 06:55 Labs: Laboratory Results - last 24 hr 03/15/23 06:55: WBC 18.8 H, RBC 3.70 L, Hgb 11.0 L, Hct 34.4 L, MCV 93.0, MCH 29.7, MCHC 32.0, RDW Std Deviation 44.9 H, RDW Coeff of [place] 13.2, Plt Count 131 L, MPV 12.7 H, Immature Gran % (Auto) 0.700, Neut % (Auto) 68.9, Lymph % (Auto) 15.3 L, [place] % (Auto) 14.5 H, Eos % (Auto) 0.4, Baso % (Auto) 0.2, Absolute Neuts (auto) 12.9 H, Absolute Lymphs (auto) 2.87, Nucleated RBC % 0, Differential Comment COMMENT, Diff Path Review May foll, Sodium 139, Potassium 4.0, Chloride 110 H, Carbon Dioxide 25.0, Anion Gap 4 L, BUN 36 H, Creatinine 1.23, Estim Creat Clear Calc 40.93, Est GFR (MDRD) Af Amer 72, Est GFR (MDRD) Non-Af 59 L, BUN/Creatinine Ratio 29.3 H, Glucose 79, Calcium 8.7 Micro: Microbiology 03/15/23 08:45 Sputum, Expectorated/Coughed Gram Stain - Final 03/13/23 15:47 Blood Culture (Wb) - Anticubital Right Blood Culture - Preli minary No growth in 48 hours. 03/13/23 16:15 Blood Culture (Wb) - Anticubital Left Blood Culture - Preliminary No growth in 48 hours. 03/13/23 18:00 Urine, Catheterized Urine Culture - Preliminary Citrobacter koseri Beta streptococcus 03/13/23 18:00 Urine, Random Legionella Antigen - Final 03/13/23 18:00 Urine, Random Streptococcus pneumoniae Antigen (M - Final 03/13/23 16:15 Nasal Secretion SARS-CoV-2 & FLU Antigen (Rapid) - Final Physical Exam Const alert and no apparent distress General Appearance: cooperative, well kempt and well developed Orientation / Consciousness: awake, oriented to person and oriented to place HEENT normocephalic, head/scalp atraumatic and moist oral mucous membranes Eyes PERRL, EOMs intact bilaterally and conjunctivae normal Neck supple, no JVD, thyroid normal and no carotid bruits General: trachea midline Resp normal respiratory effort, no retractions, no use of accessory muscles and clear to auscultation bilaterally Auscultation: Negative for rales, rhonchi or wheezes Cardio regular rate, regular rhythm, S1 normal heart sound, S2 normal heart sound, no murmurs, no rub and no gallops GI normal to inspection, nondistended, normoactive bowel sounds, soft to palpation, non-tender and non-distended Extremity no clubbing, cyanosis or edema Skin no rashes or lesions noted General Skin Exam: no breakdown Neuro CN's II-XII intact bilaterally, moves all extremities, no focal motor deficits and no sensory deficits noted Sensorium / Orientation: awake, alert, oriented to person and oriented to place Speech: speech normal Psych affect normal Assessment & Plan Assessment/Plan (1) Community acquired pneumonia: PLAN: Plan 1. Community-acquired pneumonia-continue present antibiotic coverage #2 acute cystitis-continue present antibiotic coverage #3 generalized debility secondary to advanced age and cognitive impairment-PT and OT will see the patient #4 cognitive impairment secondary to dementia-complicates care, medical course, recovery, and prognosis Total clinical time spent by myself addressing the patient's medical issues, reviewing all of his data, and collaborating with patient's care team: 35 minutes Charges/Coding Visit Charges Inpatient E&M: 72088 Subs Hosp L2
[2023-03-15] MEDS: Atorvastatin Calcium 20 MG Tablet PO (23:11)
[2023-03-16 02:35] VITALS: BP 123/49; PULSE 55; RESP 18; TEMP 36.6; O2SAT 96
[2023-03-16 02:36] VITALS: O2SAT 96
[2023-03-16 08:05] LABS: Absolute Lymphocyte Count 2.31 X10^3/uL (0.83-4.51); Absolute Neutrophil Count 7.8 X10^3/uL (2.0-7.7); Basophil# 0.04 X10^3/uL; Basophil% 0.3 % (0-1); Eosinophil# 0.15 X10^3/uL; Eosinophils% 1.3 % (0-5); Hemoglobin 10.5 g/dL (13.0-16.5); Lymphocyte # 2.31 X10^3/ul (0.83-4.51); Lymphocyte % 19.6 % (19-41); Mean Corp Hgb Conc 31.8 g/dL (32-36); Mean Corpuscular Hgb 29.2 pg (27.0-32.0); Mean Corpuscular Volume 91.9 fL (80-94); Mean Platelet Vol. 12.5 fl (6.2-12.0); Monocyte# 1.35 X10^3/uL; Monocyte% 11.4 % (0-10); NRBC Flagged by Analyzer 0 % (0-5); Neutrophil # 7.83 X10^3/uL (2.7-7.7); Neutrophil % 66.4 % (47-70); Platelet Count 126 K/mm3 (150-450); RBC Distribution Width CV 13.1 % (11.6-14.6); RBC Distribution Width SD 44.7 fl (35.1-43.9); Red Blood Count 3.59 M/mm3 (4.6-6.2); White Blood Count 11.8 K/mm3 (4.4-11.0)
[2023-03-16 08:43] LABS: Anion Gap 4 (5-15); BUN 33 mg/dL (7-18); BUN/Creat Ratio 24.3 RATIO (10-20); Calcium,Total 9.1 mg/dL (8.5-10.1); Chloride 111 mmol/L (98-107); Creatinine, Serum 1.36 mg/dL (0.70-1.30); EST Glomerular Filtration Rate 53 mL/min (>60); Est Glom Filt Rate - Afr Amer 64 mL/min (>60); Estimated Creatinine Clearance 37.02 ml/min; Glucose 86 mg/dL (74-106); Potassium 4.4 mmol/L (3.5-5.1); Sodium Level 141 mmol/L (136-145)
[2023-03-16 09:00] VITALS: BP 132/72; PULSE 53; RESP 16; TEMP 36.4; O2SAT 97
[2023-03-16] MEDS: Pantoprazole Sodium 40 MG Tablet PO (09:01)
[2023-03-16] MEDS: Donepezil HCl 5 MG Tablet PO (09:01)
[2023-03-16] MEDS: Losartan Potassium 50 MG Tablet PO (09:01)
[2023-03-16] MEDS: Carvedilol 3.125 MG TABLET PO (09:01)
[2023-03-16] MEDS: Enoxaparin 40 MG/0.4 ML Syringe SC (09:01)
[2023-03-16] MEDS: Cholecalciferol (VIT D3) 25 MCG TABLET (1,000 UNITS) PO (09:01)
[2023-03-16] MEDS: Sertraline 100 MG Tablet PO (09:01)
--- NOTE | 2023-03-16 10:33 | DCINST_ITS ---
Discharge Instructions Diet Discharge Diet: No restrictions Activity Discharge Activity: Return to Normal Activity and Use Walker (if needed) Weight Bearing Status: Full weight bearing Follow Up Care Test Results: Test results from this visit will be discussed in further detail at your follow- up appointment, if applicable. Discharge Plan Admission Admit Date/Time: 03/13/23 19:18 Primary Reason for Your Visit: pneumonia, possible UTI Attending Provider: Low Thapa Primary Care Provider: Alin Finley Consulting Providers: Jonny Lemon Nana Yaa Discharge Orders/Prescriptions Prescriptions: New levofloxacin 250 mg tablet 250 mg PO DAILY Qty: 6 0RF Rx Instructions: start 03/17/23 Continued fluticasone furoate-vilanterol [Breo Ellipta] 200-25 mcg/dose blister with device 1 inh INHALATION QDAY Patient Comments: strength change 100mcg/25mcg multivitamin tablet 1 tab PO QDAY losartan 50 mg tablet 50 mg PO DAILY cholecalciferol (vitamin D3) 25 mcg (1,000 unit) capsule 25 mcg PO DAILY guaifenesin 600 mg tablet extended release 12hr 1,200 mg PO Q12H PRN (Reason: congestion) sertraline 100 mg tablet 100 mg PO DAILY ascorbate calcium (vitamin C) 500 mg tablet 1,000 mg PO DAILY ascorbic acid-elderberry fruit [Airborne (elderberry)] 100-50 mg tablet,chewable 1 tab PO DAILY simvastatin 40 MG tablet 40 mg PO QHS pantoprazole 40 MG tablet 40 mg PO DAILY albuterol sulfate 1.25 mg/3 mL solution for nebulization 1.25 mg INHALATION ONCE PRN donepezil 5 mg tablet 5 mg PO DAILY solifenacin 10 mg tablet 10 mg PO DAILY Patient Comments: TAKE ONE Tablet BY MOUTH IN THE MORNING. SWALLOW WHOLE Tablet; DO NOT CRUSH,CHEW OR SPLIT carvedilol 3.125 mg tablet 3.125 mg PO BID Qty: 180 3RF Referrals / Follow Up: Alin Finley MD [Primary Care Provider] - Disposition Disposition (needs filled in before D/C Order can be placed): Home, Self Care
--- NOTE | 2023-03-16 10:41 | PCM.DC.SUM ---
Providers Date of Admission: 03/13/23 Date of Discharge: 03/16/23 Primary Care Physician: Dr. Alin Finley MD Reason For Visit: PNEUMONIA Diagnosis Discharge Diagnosis (1) Community acquired pneumonia: Status: Acute Code(s): J18.9 - Pneumonia, unspecified organism Plan 1. Community-acquired pneumonia-continue present antibiotic coverage #2 acute cystitis-continue present antibiotic coverage #3 generalized debility secondary to advanced age and cognitive impairment-PT and OT will see the patient #4 cognitive impairment secondary to dementia-complicates care, medical course, recovery, and prognosis Total clinical time spent by myself addressing the patient's medical issues, reviewing all of his data, and collaborating with patient's care team: 35 minutes Medications at Discharge Home Medications pantoprazole 40 mg tablet,delayed release 40 mg PO DAILY 01/26/16 simvastatin 40 mg tablet 40 mg PO QHS 01/26/16 fluticasone furoate 200 mcg-vilanterol 25 mcg/dose inhalation powder (Breo Ellipta) 1 inh inhalation QDAY 06/02/17 multivitamin 1 tab PO QDAY 06/02/17 losartan 50 mg tablet 50 mg PO DAILY 03/11/19 albuterol sulfate 1.25 mg/3 mL solution for nebulization 1.25 mg inhalation ONCE PRN 03/20/20 ascorbate calcium (vitamin C) 500 mg tablet 1,000 mg PO DAILY 03/20/20 cholecalciferol (vitamin D3) 25 mcg (1,000 unit) capsule 25 mcg PO DAILY 03/20/20 guaifenesin 600 mg tablet, extended release 12 hr 1,200 mg PO Q12H PRN congestion 03/20/20 sertraline 100 mg tablet 100 mg PO DAILY 03/20/20 carvedilol 3.125 mg tablet 3.125 mg PO BID #180 tabs 05/26/20 ascorbic acid 100 mg-elderberry fruit 50 mg chewable tablet (Airborne (elderberry)) 1 tab PO DAILY 02/05/21 donepezil 5 mg tablet 5 mg PO DAILY 03/13/23 solifenacin 10 mg tablet 10 mg PO DAILY 03/13/23 levofloxacin 250 mg tablet 250 mg PO DAILY #6 tabs 03/16/23 Hospital Course Operations None Procedures None Summary of Care Provided Minutes Spent on Discharge: 31 Hospital Course: 7-year-old white male was seen in the emergency room at [facility] after being sent in from an urgent care center due to concerns of possible stroke. Patient has dementia and is not able to give a good narrative. Labs obtained in the emergency room showed the patient have a elevated white blood cell count of 14,000, there is mild elevation of the BUN. Patient's COVID and influenza antigens were negative, urinalysis did not indicate the presence of UTI, chest x-ray showed a focal right basilar infiltrate. Brain CT showed a suprasellar nodular lesion. Patient was admitted to [place] [address] for pneumonia, he was treated with IV antibiotics and seen by PT and OT. MRI of the brain was performed and indicated the patient had a meningioma. Urine culture grew out Citrobacter strep staph lactobacillus and corynebacterium. Patient improved during his hospitalization. On 03/16/2023, patient was seen and examined: On examination he appeared in good health and spirits, patient had cognitive impairment. Vital signs as documented. Skin warm and dry and without overt rashes. Neck without JVD, neck was supple, trachea midline, thyroid was normal. Lungs clear bilaterally, normal air movement was noted. Heart exam notable for regular rhythm, normal sounds and absence of murmurs, rubs or gallops. Abdomen unremarkable and without evidence of organomegaly, masses, or abdominal aortic enlargement. Bowel sounds are present, abdomen is not distended. Extremities nonedematous, no cyanosis was noted, no clubbing was noted. Neuro: Cranial nerves II through XII are grossly intact, no focal motor deficits were noted, sensation to light touch and pinprick intact, motor exam 5/5 throughout. Psych: Patient is alert, he is oriented to self and place, he answers simple questions appropriately. Patient was discharged home in stable condition on 03/16/2023. Weight / BMI Weight Weight: 97 kg Body Mass Index (BMI) 32.3 ABG / Lab / Microbiology Data 03/16/23 07:15 03/16/23 07:15 Laboratory: Laboratory Results - last 24 hr 03/16/23 07:15: WBC 11.8 H, RBC 3.59 L, Hgb 10.5 L, Hct 33.0 L, MCV 91.9, MCH 29.2, MCHC 31.8 L, RDW Std Deviation 44.7 H, RDW Coeff of [place] 13.1, Plt Count 126 L, MPV 12.5 H, Immature Gran % (Auto) 1.000 H, Neut % (Auto) 66.4, Lymph % (Auto) 19.6, [place] % (Auto) 11.4 H, Eos % (Auto) 1.3, Baso % (Auto) 0.3, Absolute Neuts (auto) 7.8 H, Absolute Lymphs (auto) 2.31, Nucleated RBC % 0, Sodium 141, Potassium 4.4, Chloride 111 H, Carbon Dioxide 26.0, Anion Gap 4 L, BUN 33 H, Creatinine 1.36 H, Estim Creat Clear Calc 37.02, Est GFR (MDRD) Af Amer 64, Est GFR (MDRD) Non-Af 53 L, BUN/Creatinine Ratio 24.3 H, Glucose 86, Calcium 9.1 Microbiology: Microbiology 03/13/23 18:00 Urine, Catheterized Urine Culture - Preliminary Citrobacter koseri Beta streptococcus Staphylococcus species Gram positive mic Gram positive mic#2 03/15/23 08:45 Sputum, Expectorated/Coughed Gram Stain - Final 03/13/23 15:47 Blood Culture (Wb) - Anticubital Right Blood Culture - Preliminary No growth in 48 hours. 03/13/23 16:15 Blood Culture (Wb) - Anticubital Left Blood Culture - Preliminary No growth in 48 hours. 03/13/23 18:00 Urine, Random Legionella Antigen - Final 03/13/23 18:00 Urine, Random Streptococcus pneumoniae Antigen (M - Final 03/13/23 16:15 Nasal Secretion SARS-CoV-2 & FLU Antigen (Rapid) - Final D/C Instructions Discharge Diet: No restrictions Weight Bearing Status: Full weight bearing Meaningful Use Info Meaningful Use Diagnoses (Choose all that apply): None applicable Discharge Plan Admission Admit Date/Time: 03/13/23 19:18 Primary Reason for Your Visit: pneumonia, possible UTI Attending Provider: Low Thapa Primary Care Provider: Alin Finley Consulting Providers: Jonny Lemon Nana Yaa Discharge Orders/Prescriptions Prescriptions: New levofloxacin 250 mg tablet 250 mg PO DAILY Qty: 6 0RF Rx Instructions: start 03/17/23 Continued fluticasone furoate-vilanterol [Breo Ellipta] 200-25 mcg/dose blister with device 1 inh INHALATION QDAY Patient Comments: strength change 100mcg/25mcg multivitamin tablet 1 tab PO QDAY losartan 50 mg tablet 50 mg PO DAILY cholecalciferol (vitamin D3) 25 mcg (1,000 unit) capsule 25 mcg PO DAILY guaifenesin 600 mg tablet extended release 12hr 1,200 mg PO Q12H PRN (Reason: congestion) sertraline 100 mg tablet 100 mg PO DAILY ascorbate calcium (vitamin C) 500 mg tablet 1,000 mg PO DAILY ascorbic acid-elderberry fruit [Airborne (elderberry)] 100-50 mg tablet,chewable 1 tab PO DAILY simvastatin 40 MG tablet 40 mg PO QHS pantoprazole 40 MG tablet 40 mg PO DAILY albuterol sulfate 1.25 mg/3 mL solution for nebulization 1.25 mg INHALATION ONCE PRN donepezil 5 mg tablet 5 mg PO DAILY solifenacin 10 mg tablet 10 mg PO DAILY Patient Comments: TAKE ONE Tablet BY MOUTH IN THE MORNING. SWALLOW WHOLE Tablet; DO NOT CRUSH,CHEW OR SPLIT carvedilol 3.125 mg tablet 3.125 mg PO BID Qty: 180 3RF Referrals / Follow Up: Alin Finley MD [Primary Care Provider] - Disposition Disposition (needs filled in before D/C Order can be placed): Home, Self Care Charges/Coding Visit Charges Inpatient E&M: 71079 Disch Hosp >30min
--- NOTE | 2023-03-16 12:59 | CASEMGMT ---
BRADLEY SERRATO NOTE: Discharge order is in. Home O2 testing has been completed and pt does not qualify for home O2. BRADLEY CM to room. Pt up ad kelsie in room. Dtr, Ana, in room w/pt. Pt and daughter deny having any discharge planning needs or concerns. Pt still planning on going to his sisters home for a couple of days and then plans to fly to [place]. Pt wishing to shower before he goes home. RN and ELECTRONIC PUBLISHING SPECIALIST made aware. Yasmin LEBLANCN BRADLEY CM
[2023-03-16 14:00] VITALS: BP 123/54; PULSE 54; RESP 18; TEMP 36.5; O2SAT 95
--- NOTE | 2023-03-16 14:43 | PHA.DC.MC.R ---
Pharmacy [facility] Service has performed discharge medication reconciliation and counseling for this patient. The patient's discharge medication list was reviewed for discrepancies and discrepancies were resolved. The patient was counseled on the following discharge medications and changes in medications for homegoing were reviewed. 1. LEVCHRYSTAL The Reason for Use, instructions for use, and potential side effects were reviewed for all new medications. The patient's questions regarding all of their medications were answered. The patient was able to verbally demonstrate an understanding of their discharge medications. Medications at Discharge Home Medications pantoprazole 40 mg tablet,delayed release 40 mg PO DAILY 01/26/16 simvastatin 40 mg tablet 40 mg PO QHS 01/26/16 fluticasone furoate 200 mcg-vilanterol 25 mcg/dose inhalation powder (Breo Ellipta) 1 inh inhalation QDAY 06/02/17 multivitamin 1 tab PO QDAY 06/02/17 losartan 50 mg tablet 50 mg PO DAILY 03/11/19 albuterol sulfate 1.25 mg/3 mL solution for nebulization 1.25 mg inhalation ONCE PRN 03/20/20 ascorbate calcium (vitamin C) 500 mg tablet 1,000 mg PO DAILY 03/20/20 cholecalciferol (vitamin D3) 25 mcg (1,000 unit) capsule 25 mcg PO DAILY 03/20/20 guaifenesin 600 mg tablet, extended release 12 hr 1,200 mg PO Q12H PRN congestion 03/20/20 sertraline 100 mg tablet 100 mg PO DAILY 03/20/20 carvedilol 3.125 mg tablet 3.125 mg PO BID #180 tabs 05/26/20 ascorbic acid 100 mg-elderberry fruit 50 mg chewable tablet (Airborne (elderberry)) 1 tab PO DAILY 02/05/21 donepezil 5 mg tablet 5 mg PO DAILY 03/13/23 solifenacin 10 mg tablet 10 mg PO DAILY 03/13/23 levofloxacin 250 mg tablet 250 mg PO DAILY #6 tabs 03/16/23
[2023-03-17 09:13] LABS: Pathologist Review Reviewed
== END 2023-03-16 14:07 | disposition home or self-care (01) | DRG 689 ==
LOC: ED 18:47 → MS3 19:06
PROVIDERS: Student in an Organized Health Care Education/Training Program; Admitting Provider Family Medicine; Emergency Provider Emergency Medicine; PCP Family Medicine; Visit Provider Internal Medicine
DX: N30.00 Acute cystitis without hematuria (principal); J18.9 Pneumonia, unspecified organism; J44.0 Chronic obstructive pulmonary disease with (acute) lower respiratory infection; F03.90 Unspecified dementia, unspecified severity, without behavioral disturbance, psychotic disturbance, mood disturbance, and anxiety; D32.0 Benign neoplasm of cerebral meninges; I10 Essential (primary) hypertension; F32.A Depression, unspecified; K21.9 Gastro-esophageal reflux disease without esophagitis; G47.33 Obstructive sleep apnea (adult) (pediatric); I25.10 Atherosclerotic heart disease of native coronary artery without angina pectoris; E78.2 Mixed hyperlipidemia; F41.9 Anxiety disorder, unspecified; B95.0 Streptococcus, group A, as the cause of diseases classified elsewhere; B96.89 Other specified bacterial agents as the cause of diseases classified elsewhere; Z90.2 Acquired absence of lung [part of]; Z77.098 Contact with and (suspected) exposure to other hazardous, chiefly nonmedicinal, chemicals; Z79.899 Other long term (current) drug therapy; Z85.118 Personal history of other malignant neoplasm of bronchus and lung; Z85.46 Personal history of malignant neoplasm of prostate; Z85.51 Personal history of malignant neoplasm of bladder; Z87.891 Personal history of nicotine dependence
CPT/HCPCS: 36415; 70450; 70553; 71045; 80048; 80053; 81001; 83605; 85025; 85610; 85730; 87040; 87070; 87077; 87086; 87088; 87186; 87205; 87428; 87449; 93005; 94640; 97162; 97166; 97530; 97535; 99285; A9575; J7040; J7050; A4216

== ENCOUNTER 2023-09-29 21:17 | Observation (INO) | payer MEDICARE, SELFPAY ==
[2023-09-29] VITALS (8 sets, daily range): BP systolic 174–186; BP diastolic 80–89; PULSE 70–82; RESP 16–27; TEMP 36.5–36.7; O2SAT 95–99; BMI 30.7
--- NOTE | 2023-09-29 21:40 | EKG12_ITS ---
Test Reason : DYSRHYTHMIA Blood Pressure : / mmHG Vent. Rate : 069 BPM Atrial Rate : 069 BPM P-R Int : 158 ms QRS Dur : 132 ms QT Int : 444 ms P-R-T Axes : 063 053 -18 degrees QTc Int : 475 ms Normal sinus rhythm Right bundle branch block T wave abnormality, consider inferior ischemia Abnormal ECG Confirmed by Renato Mckoy ([id number]), news video editor ERINN JEFFERSON ([id number]) on 10/03/2023 6:05:11 AM Referred By: Confirmed By:Renato Mckoy
--- NOTE | 2023-09-29 21:41 | EDS_ITS ---
HPI History of Present Illness Chief Complaint: Weakness Informant: patient Narrative Narrative: Brought in by EMS from sisters home where he is staying. He is visiting from [place]. His daughter dropped him off. He and was with a walker at baseline. History of early dementia COPD, hypertension, hyperlipidemia. He was doing fine earlier today, they went out to dinner. He came home he had to step up 1 step into the home. Sister states he has been having trouble weak with this, he fell forward landing on his knees. He crawled in the house. EMS called for lift assist, he is a unable to stand up on his own and therefore brought in for evaluation. He has a stable mild cough. No fevers. No vomiting or diarrhea. Denies any urinary symptoms. Decreased p.o. intake today per sister. [facility] Medical History Near syncope Atherosclerotic heart disease of [place] coronary artery without angina pectoris Mixed hyperlipidemia History of bladder cancer History of prostate cancer History of lung cancer in adulthood Bladder cancer Prostate cancer VERONICA (obstructive sleep apnea) Essential hypertension Lung cancer Hypertension Chest pain Nonrheumatic mitral (valve) prolapse Home Medications ?Medication ?Instructions ?Recorded ?Last Taken ?Type pantoprazole 40 mg tablet,delayed 40 mg PO DAILY stomach 01/26/16 12/31/18 10:00 History release simvastatin 40 mg tablet 40 mg PO QHS hld 01/26/16 12/31/18 22:00 History fluticasone furoate 200 1 inh inhalation QDAY sob 06/02/17 12/31/18 10:00 History mcg-vilanterol 25 mcg/dose inhalation powder (Breo Ellipta) multivitamin 1 tab PO QDAY supplement 06/02/17 12/31/18 10:00 History albuterol sulfate 1.25 mg/3 mL 1.25 mg inhalation ONCE PRN SOB 03/20/20 Unknown History solution for nebulization sertraline 100 mg tablet 100 mg PO DAILY depression 03/20/20 Unknown History donepezil 5 mg tablet 5 mg PO DAILY dementia 03/13/23 Unknown History solifenacin 10 mg tablet 10 mg PO DAILY bladder 03/13/23 Unknown History acetaminophen 500 mg capsule 1,000 mg PO Q8H PRN pain 09/29/23 Unknown History albuterol sulfate 2.5 mg/3 mL 2.5 mg inhalation Q8H sob 09/29/23 Unknown History (0.083 %) solution for nebulization amlodipine 10 mg tablet 10 mg PO DAILY bp 09/29/23 Unknown History atorvastatin 10 mg tablet 10 mg PO DAILY hld 09/29/23 Unknown History cetirizine 10 mg capsule (All Day 10 mg PO DAILY PRN allergy symptoms 09/29/23 Unknown History Allergy (cetirizine)) fluticasone 500 mcg-salmeterol 50 1 ea inhalation BID sob 09/29/23 Unknown History mcg/dose blistr powdr for inhalation (Wixela Inhub) Allergy/AdvReac Type Severity Reaction Status Date / Time Penicillins Allergy Unknown Verified 09/29/23 21:32 Family History Father Heart disease Mother Colon cancer Surgical History History of lobectomy of lung Social History Smoking Status: Former smoker alcohol intake: never substance use type: does not use ROS ROS ED Constitutional Constitutional ED: Denies chills, fever(s) or sweats Eyes Eyes: Denies change in vision ENT ENT ED: Denies dysphagia or sore throat Cardiovascular Cardiovascular: Denies chest pain, leg edema, palpitations or racing heartbeat Respiratory/Chest Respiratory/Chest: Denies cough, dyspnea or dyspnea on exertion Gastrointestinal Gastrointestinal: Denies abdominal pain, diarrhea, nausea or vomiting Genitourinary Genitourinary ED: Denies dysuria, hematuria or urinary frequency Musculoskeletal Musculoskeletal: Denies back pain, extremity pain or neck pain Integumentary Denies rash or wounds Neurologic Neurologic: Reports weakness; Denies headache(s) or paresthesias EXAM Physical Exam Const Vital Signs: 09/29/23 21:18 09/29/23 21:23 09/29/23 21:23 Temperature 97.7 F L 97.7 F L Temperature Source Oral Temporal Pulse Rate 70 71 Respiratory Rate 22 H 27 H Respiratory Effort Labored Respiratory Pattern Tachypnea Blood Pressure 174/80 H 174/80 H Blood Pressure Mean 111 111 Pulse Ox 99 99 Oxygen Delivery Method Room Air Room Air 09/29/23 22:24 09/29/23 22:30 09/29/23 22:45 Temperature Temperature Source Pulse Rate 74 78 82 Respiratory Rate 19 H 26 H 22 H Respiratory Effort Respiratory Pattern Blood Pressure Blood Pressure Mean Pulse Ox 97 98 97 Oxygen Delivery Method 09/29/23 23:00 09/29/23 23:15 09/29/23 23:50 Temperature 98.1 F Temperature Source Pulse Rate 82 79 79 Respiratory Rate 25 H 20 H 16 Respiratory Effort Respiratory Pattern Blood Pressure 186/89 H 181/86 H Blood Pressure Mean 118 117 Pulse Ox 98 95 99 Oxygen Delivery Method Room Air Positive well nourished and well developed General Appearance ED: well developed and NAD HEENT Reports moist mucous membranes normocephalic and atraumatic Eyes EOMs intact bilaterally and conjunctivae normal General Eye ED: Yes normal appearance of both eyes Neck no lymphadenopathy and supple General: Negative for tenderness Chest Wall Chest: Negative for tenderness Resp normal respiratory effort and normal air movement Effort and Inspection: symmetric chest movement; Negative for respiratory distress Cardio regular rate, regular rhythm and no murmurs Peripheral Pulses: pulses 2+ throughout GI normal to inspection, nondistended, normoactive bowel sounds and non-tender Palpation: Negative for guarding or rebound tenderness present Back/Spine no CVA tenderness and no thoracic nor lumbar tenderness Extremity normal to inspection General Extremety ED: Negative for edema or tenderness General Extremity: Negative for edema Neuro oriented x3 and no sensory deficits noted Sensorium / Orientation: awake and alert Skin no rashes or lesions noted and no wounds MDM MDM MDM Narrative Medical decision making narrative: Interventions / MDM: Differential diagnosis: Weakness, fall, failure to thrive Diagnosis considered but do not suspect: Infections however x-ray and urine negative. My EKG interpretation: Sinus rate of 69, no ST or T wave changes right bundle branch block noted. Imaging independently reviewed and interpreted by myself: 1 view chest x-ray: Basilar atelectasis, no infiltrates also read by radiology. External documents reviewed: N/A Test considered but not ordered:N/A ED course: Patient with a fall unable to get up. History of dementia however is alert and orient x 3. No head injuries. Generalized weakness workup was initiated. EKG right bundle branch block. Laboratory studies ordered along wi th urine. Chest x-ray ordered. Is given IV fluids. Labs with stable CKD urine negative for infection chest x-ray negative infection. Labs 12.0 white count 8.2. Reevaluation clinically is feeling better he requested Tylenol for generalized arthritis pains. This was ordered. Tolerate p.o. intake. He was ambulate with a walker and was able to ambulate. We discussed 1 sister additional member in the room, they state they cannot take take care of him. He is from [place] stays in assisted living. Secondary to family unable to care for him I discussed with hospitalist, Dr. Cox for observation's admission to the medical floor. Re-evaluation: stable Disposition discussed with patient/family/significant other: Family Case discussed with consulting clinician: Hospitalist This note was generated with [employer] dictation software. It may contain incorrect words, spelling, and punctuation that were not noted in checking the note before signing. Lab Data Attestation: I reviewed the patient's lab results. Labs: Laboratory Results - last 24 hr 09/29/23 09/29/23 21:05 22:24 WBC 11.2 H RBC 4.18 L Hgb 12.0 L Hct 36.4 L MCV 87.1 MCH 28.7 MCHC 33.0 RDW Std Deviation 43.1 RDW Coeff of [place] 13.5 Plt Count 238 MPV 11.6 Immature Gran % (Auto) 0.500 Neut % (Auto) 45.8 L Lymph % (Auto) 25.5 [place] % (Auto) 27.2 H Eos % (Auto) 0.7 Baso % (Auto) 0.3 Absolute Neuts (auto) 5.1 Absolute Lymphs (auto) 2.85 Nucleated RBC % 0 Differential Comment SCANNED Diff Path Review May foll Sodium 136 Potassium 4.1 Chloride 105 Carbon Dioxide 23.0 Anion Gap 8 BUN 34 H Creatinine 1.35 H Estim Creat Clear Calc 41.60 Est GFR (MDRD) Af Amer 64 Est GFR (MDRD) Non-Af 53 L BUN/Creatinine Ratio 25.2 H Glucose 105 Calcium 9.6 Urine Color Yellow Urine Clarity Clear Urine pH 7.0 Ur Specific [place] 1.010 Urine Protein 15 H Urine Glucose (UA) Normal Urine Ketones 5 H Urine Occult Blood Negative Urine Nitrite Negative Urine Bilirubin Negative Urine Urobilinogen Normal Ur Leukocyte Esterase Negative Urine RBC 0 SEEN Urine WBC 0 SEEN Ur Squamous Epith Cells 0 SEEN Urine Bacteria 0 SEEN Urine Mucus 0 SEEN Radiography Diagnostic Testing: Clinical Impression(s) from Imaging Studies Chest X-Ray 09/29/23 21:45 IMPRESSION: Mild basilar atelectasis. Electronically Signed: Alexander Lamas DO at 23:18 EDT Reading Location ID and State: [facility] / [place] Tel [phone], Service support , Discharge Plan Triage Chief Complaint: Weakness ED Provider: Nilson Keith Dx/Rx/DC Orders Primary Care Provider: Care Physician,No Primary
--- NOTE | 2023-09-29 21:45 | RAD_ITS ---
INDICATION: cough EXAMINATION/TECHNIQUE: X-RAY - XR Chest 1 View COMPARISON: FINDINGS: LINES/DEVICES: None. LUNGS: No consolidation, edema or effusion. Mild basilar atelectasis. No pneumothorax. MEDIASTINUM AND CARDIOVASCULAR STRUCTURES: Cardiac silhouette not enlarged. Central airways and mediastinal contour are unremarkable. BONES AND SOFT TISSUES: Unremarkable. RAD/Chest 1 View (Portable) IMPRESSION: Mild basilar atelectasis. Electronically Signed: Alexander Lamas DO at 23:18 EDT ,
[2023-09-29 21:55] LABS: Absolute Lymphocyte Count 2.85 X10^3/uL (0.83-4.51); Absolute Neutrophil Count 5.1 X10^3/uL (2.0-7.7); Basophil# 0.03 X10^3/uL; Basophil% 0.3 % (0-1); Eosinophil# 0.08 X10^3/uL; Eosinophils% 0.7 % (0-5); Hematocrit 36.4 % (40-54); Lymphocyte # 2.85 X10^3/ul (0.83-4.51); Lymphocyte % 25.5 % (19-41); Mean Corpuscular Hgb 28.7 pg (27.0-32.0); Mean Corpuscular Volume 87.1 fL (80-94); Mean Platelet Vol. 11.6 fl (6.2-12.0); Monocyte# 3.04 X10^3/uL; Monocyte% 27.2 % (0-10); NRBC Flagged by Analyzer 0 % (0-5); Neutrophil % 45.8 % (47-70); POSITIVE DIFFERENTIAL YES; Platelet Count 238 K/mm3 (150-450); RBC Distribution Width CV 13.5 % (11.6-14.6); RBC Distribution Width SD 43.1 fl (35.1-43.9); Red Blood Count 4.18 M/mm3 (4.6-6.2); White Blood Count 11.2 K/mm3 (4.4-11.0)
[2023-09-29] MEDS: 0.9% Normal Saline (500mL Bag) 500 ML 999 ML IV (21:55)
[2023-09-29 22:06] LABS: Anion Gap 8 (5-15); BUN 34 mg/dL (7-18); BUN/Creat Ratio 25.2 RATIO (10-20); Calcium,Total 9.6 mg/dL (8.5-10.1); Chloride 105 mmol/L (98-107); Creatinine, Serum 1.35 mg/dL (0.70-1.30); EST Glomerular Filtration Rate 53 mL/min (>60); Est Glom Filt Rate - Afr Amer 64 mL/min (>60); Glucose 105 mg/dL (74-106); Potassium 4.1 mmol/L (3.5-5.1); Sodium Level 136 mmol/L (136-145)
[2023-09-29 22:25] LABS: Bacteria 0 SEEN /hpf (None Seen); Mucous, Urine 0 SEEN /hpf (<or=2+); Red Blood Cells-Urine 0 SEEN /hpf (0-5); Squamous Epithelial Cells - UA 0 SEEN /hpf (0-5); White Blood Cells 0 SEEN /hpf (0-5)
[2023-09-29 22:28] LABS: Color, Urine Yellow (Yellow); Glucose, Dipstick Normal (Normal); Ketone-Dipstick 5 mg/dl (Negative); Leukocyte Esterase-Dipstick Negative /ul (Negative); Nitrite-Dipstick Negative (Negative); Occult Blood-Urine Negative /ul (Negative); Protein-Dipstick 15 mg/dl (Negative); Urine Bilirubin Dipstick Negative (Negative); Urine Clarity Clear (Clear); Urine Urobilinogen Normal (Normal)
[2023-09-29 22:40] LABS: Differential Comment SCANNED; Differential Indicated SCAN CRITERIA MET
[2023-09-29] MEDS: Acetaminophen 325 MG Tablet 650 MG PO (23:49)
--- NOTE | 2023-09-29 23:56 | PCM.HP.STD ---
[facility] General Date of Admission: 09/30/23 Date of Service: 09/29/23 Chief Complaint: Generalized Weakness after Fall. [facility] Narrative ROULA KIDD, is a 88 M with a past medical history of essential hypertension, hyperlipidemia, obesity; BMI 30.8 this admission, VERONICA, chronic dementia; on donepezil, history of CAD, history of community-acquired pneumonia, history of bronchiectasis, history of lung cancer; s/p lobectomies of RUL (2014) and LLL (2008), history of prostate cancer (2010), history of bladder cancer; s/p transurethral resection (2007), overactive bladder; on solifenacin,history of near syncope, history of nonrheumatic mitral valve prolapse, depression, GERD and osteoarthritis who presents to [facility] ER complaining of generalized weakness after fall. Mr. Kidd is apparently visiting from [place] where he is staying with one of his daughters and he reports his symptoms began approximately 1 hour prior to arrival when he was trying to step up into the home of one of his daughters when he lost his balance and fell onto his knees. He then crawled into the house and then EMS was activated when he was unable to stand up on his own. There was no report of related head trauma, loss of consciousness, no obvious fracture or significant injury other than abrasions to his knees and when family was reassured that the patient had no significant injuries that would require admission they refused to take him home saying they could not care for him. There is no report of fever, chills, nausea, vomiting, diarrhea or dysuria but there was a report of decreased p.o. intake today and he has a stable mild cough. He was then diagnosed with laboratory evidence of mild dehydration with serum creatinine of 1.35 mg/dL and BUN of 34 mg/dL (BUN/creatinine ratio 25.2) complicated by generalized weakness and ambulatory dysfunction compounded by his family's inability to care for him at home at this time and he was then admitted to the general medical floor under observation status for stay that is expected to be less than 2 midnights. [facility] Medical History (Updated 09/30/23 @ 07:[address] Misha Yeh, ) Generalized weakness COPD (chronic obstructive pulmonary disease) COPD (chronic obstructive pulmonary disease) Near syncope Atherosclerotic heart disease of [place] coronary artery without angina pectoris Mixed hyperlipidemia History of bladder cancer History of prostate cancer History of lung cancer in adulthood Bladder cancer Prostate cancer VERONICA (obstructive sleep apnea) Essential hypertension Lung cancer Hypertension Chest pain Nonrheumatic mitral (valve) prolapse Home Medications ?Medication ?Instructions ?Recorded ?Last Taken ?Type pantoprazole 40 mg tablet,delayed 40 mg PO DAILY stomach 01/26/16 12/31/18 10:00 History release simvastatin 40 mg tablet 40 mg PO QHS hld 01/26/16 12/31/18 22:00 History fluticasone furoate 200 1 inh inhalation QDAY sob 06/02/17 12/31/18 10:00 History mcg-vilanterol 25 mcg/dose inhalation powder (Breo Ellipta) multivitamin 1 tab PO QDAY supplement 06/02/17 12/31/18 10:00 History albuterol sulfate 1.25 mg/3 mL 1.25 mg inhalation ONCE PRN SOB 03/20/20 Unknown History solution for nebulization sertraline 100 mg tablet 100 mg PO DAILY depression 03/20/20 Unknown History donepezil 5 mg tablet 5 mg PO DAILY dementia 03/13/23 Unknown History solifenacin 10 mg tablet 10 mg PO DAILY bladder 03/13/23 Unknown History acetaminophen 500 mg capsule 1,000 mg PO Q8H PRN pain 09/29/23 Unknown History albuterol sulfate 2.5 mg/3 mL 2.5 mg inhalation Q8H sob 09/29/23 Unknown History (0.083 %) solution for nebulization amlodipine 10 mg tablet 10 mg PO DAILY bp 09/29/23 Unknown History atorvastatin 10 mg tablet 10 mg PO DAILY hld 09/29/23 Unknown History cetirizine 10 mg capsule (All Day 10 mg PO DAILY PRN allergy symptoms 09/29/23 Unknown History Allergy (cetirizine)) fluticasone 500 mcg-salmeterol 50 1 ea inhalation BID sob 09/29/23 Unknown History mcg/dose blistr powdr for inhalation (Wixela Inhub) Allergy/AdvReac Type Severity Reaction Status Date / Time Penicillins Allergy Unknown Verified 09/29/23 21:32 Family History Father Heart disease Mother Colon cancer Surgical History History of lobectomy of lung Social History Smoking Status: Former smoker alcohol intake: never substance use type: does not use ROS ROS Narrative Review of systems: General: Patient denies fever or chills. HENT: Denies headache, denies stuffy nose, denies sore throat EYES: Denies changes in vision or discharge from eyes. Resp: Patient admits to mild stable cough but he denies shortness of breath Cardiac: Denies chest pain, palpitations or heart racing GI: Denies abdominal pain, denies changes in bowel, denies nausea or vomiting : Denies changes in urination Extremity: Patient admits to mild abrasions on both knees after fall but he denies LE swelling Musculoskeletal: Feels somewhat generally weak and unwell but denies arthralgias or myalgias. Neuro: Patient denies headache, paresthesias or focal neurologic deficits. Heme: Denies any bleeding or bruising Skin: Denies rashes Psychiatric: No complaints voiced related uncontrolled depression or anxiety. Endocrine: No polyuria, polydipsia or polyphagia. The rest of the 14 point ROS was negative except for positives in HPI. Vital Signs Vital Signs Vital Signs: 09/29/23 21:18 09/29/23 21:23 09/29/23 21:23 Temperature 97.7 F L 97.7 F L Temperature Source Oral Temporal Pulse Rate 70 71 Respiratory Rate 22 H 27 H Respiratory Effort Labored Respiratory Pattern Tachypnea Blood Pressure 174/80 H 174/80 H Blood Pressure Mean 111 111 Pulse Ox 99 99 Oxygen Delivery Method Room Air Room Air 09/29/23 22:24 09/29/23 22:30 09/29/23 22:45 Temperature Temperature Source Pulse Rate 74 78 82 Respiratory Rate 19 H 26 H 22 H Respiratory Effort Respiratory Pattern Blood Pressure Blood Pressure Mean Pulse Ox 97 98 97 Oxygen Delivery Method 09/29/23 23:00 09/29/23 23:15 09/29/23 23:50 Temperature 98.1 F Temperature Source Pulse Rate 82 79 79 Respiratory Rate 25 H 20 H 16 Respiratory Effort Respiratory Pattern Blood Pressure 186/89 H 181/86 H Blood Pressure Mean 118 117 Pulse Ox 98 95 99 Oxygen Delivery Method Room Air Weight Weight: 202 lb 6.15 oz Body Mass Index (BMI) 30.7 Physical Exam Const alert, oriented x3, no apparent distress, average body habitus and healthy appearing General Appearance: cooperative HEENT normocephalic, head/scalp atraumatic, hearing grossly normal bilaterally and moist oral mucous membranes Eyes PERRL and EOMs intact bilaterally Neck no lymphadenopathy and supple Resp normal respiratory effort, no retractions, no use of accessory muscles and clear to auscultation bilaterally Cardio regular rate and regular rhythm GI normal to inspection, nondistended, normoactive bowel sounds, soft to palpation, non-tender and non-distended Extremity Extremity Narrative: Patient has mild abrasions on both knees. Skin Skin Narrative: Patient has mild abrasions on both knees with no evidence of jaundice or abscess. Neuro oriented x3, CN's II-XII intact bilaterally, moves all extremities and no focal motor deficits Sensorium / Orientation: awake, alert, oriented to person, oriented to place and oriented to time Speech: speech normal Psych affect normal Results Medical Records Data Attestation: I reviewed the patient's medical records Lab / Micro Data Attestation: I reviewed the patient's lab results. 09/30/23 06:01 09/30/23 06:01 Labs: Laboratory Results - last 24 hr 09/29/23 21:05: WBC 11.2 H, RBC 4.18 L, Hgb 12.0 L, Hct 36.4 L, MCV 87.1, MCH 28.7, MCHC 33.0, RDW Std Deviation 43.1, RDW Coeff of [place] 13.5, Plt Count 238, MPV 11.6, Immature Gran % (Auto) 0.500, Neut % (Auto) 45.8 L, Lymph % (Auto) 25.5, [place] % (Auto) 27.2 H, Eos % (Auto) 0.7, Baso % (Auto) 0.3, Absolute Neuts (auto) 5.1, Absolute Lymphs (auto) 2.85, Nucleated RBC % 0, Differential Comment SCANNED, Diff Path Review August foll, Sodium 136, Potassium 4.1, Chloride 105, Carbon Dioxide 23.0, Anion Gap 8, BUN 34 H, Creatinine 1.35 H, Estim Creat Clear Calc 41.60, Est GFR (MDRD) Af Amer 64, Est GFR (MDRD) Non-Af 53 L, BUN/Creatinine Ratio 25.2 H, Glucose 105, Calcium 9.6 09/29/23 22:24: Urine Color Yellow, Urine Clarity Clear, Urine pH 7.0, Ur Specific [place] 1.010, Urine Protein 15 H, Urine Glucose (UA) Normal, Urine Ketones 5 H, Urine Occult Blood Negative, Urine Nitrite Negative, Urine Bilirubin Negative, Urine Urobilinogen Normal, Ur Leukocyte Esterase Negative, Urine RBC 0 SEEN, Urine WBC 0 SEEN, Ur Squamous Epith Cells 0 SEEN, Urine Bacteria 0 SEEN, Urine Mucus 0 SEEN Imaging Radiology Impression Chest X-Ray 09/29/23 21:45 IMPRESSION: Mild basilar atelectasis. Electronically Signed: Alexander Lamas DO at 23:18 EDT Reading Location ID and State: [facility] / [place] Tel [phone], Service support , Assessment & Plan Assessment/Plan (1) Generalized weakness: (2) Ambulatory dysfunction: (3) Fall: QUALIFIERS: Encounter type: initial encounter Qualified Code(s): W19.XXXA - Unspecified fall, initial encounter (4) Dehydration: (5) Dementia: QUALIFIERS: Dementia type: unspecified type Dementia severity: mild Dementia behavioral or psychological symptom: without behavioral, psychotic, or mood disturbance or anxiety Qualified Code(s): F03.A0 - Unspecified dementia, mild, without behavioral disturbance, psychotic disturbance, mood disturbance, and anxiety PLAN: Plan 1. Generalized weakness with ambulatory dysfunction and mechanical fall without significant pathologic injury - Admit to general medical floor under observation status. PT/OT and case management consult and treat on rounds in the a.m. further recommendations without appreciated advance. Give Tylenol as needed pain or fever. 2. Laboratory evidence of mild dehydration with serum creatinine of 1.35 mg/dL and BUN of 34 mg/dL (BUN/creatinine ratio 25.2) likely greatly contributing to #1 - Volume resuscitate overnight and then recheck CMP in a.m. to confirm improvement. 3. Family unable to care for patient at home in his current condition compounding #1 & #2 - Noted. According to the ER physician patient is supposed to catch a plane later this week to return home to [place] so arrangements will need to be made in advance to prevent further complications. 4. Chronic mild dementia; on donepezil adding to the pathology of #1 - #3 - Resume donepezil as previous. Thankfully patient is alert and oriented x 3 at this time. 5. Essential hypertension - Continue home regimen as previous. 6. Hyperlipidemia - Resume statin. 7. Obesity; BMI 30.8 this admission plus VERONICA - Weight loss will be recommended. Continue nocturnal CPAP. 8. History of CAD - Noted. 9. History of community-acquired pneumonia - Noted. CXR negative for acute pathologic changes this admission. 10. History of bronchiectasis - Noted. 11. History of lung cancer; s/p lobectomies of RUL (2014) and LLL (2008) - Noted. 12. History of prostate cancer (2010) - Noted. 13. History of bladder cancer; s/p transurethral resection (2007) - Noted. 14. Overactive bladder; on solifenacin - Resume Solifenacin as previous. 15. History of near syncope - Noted. 16. History of nonrheumatic mitral valve prolapse - Noted. 17. Depression - Home regimen to continue unchanged. 18. GERD - Continue PPI. 19. Osteoarthritis - Give Tylenol as needed. 20. DVT prophylaxis - Lovenox 40 mg subcu daily. Total time: Approximately 75 minutes. Charges/Coding Visit Charges OBSV E&M: 45417 Observ/hosp same date L2
[2023-09-30] VITALS (15 sets, daily range): BP systolic 114–162; BP diastolic 58–94; PULSE 66–82; RESP 16–26; TEMP 36.4–36.8; O2SAT 94–99; BMI 29.5
[2023-09-30] MEDS: 0.9% Normal Saline (1000mL) 1,000 ML 70 ML IV ×2 (02:02→15:51)
[2023-09-30] MEDS: HYDROcodone Bitartrate/Apap 5/325 Tablet PO (02:08)
[2023-09-30] MEDS: Enoxaparin 40 MG/0.4 ML Syringe SC (05:46)
[2023-09-30 06:14] LABS: Absolute Lymphocyte Count 2.34 X10^3/uL (0.83-4.51); Absolute Neutrophil Count 3.8 X10^3/uL (2.0-7.7); Basophil# 0.02 X10^3/uL; Basophil% 0.2 % (0-1); Eosinophil# 0.08 X10^3/uL; Eosinophils% 0.9 % (0-5); Hematocrit 32.8 % (40-54); Hemoglobin 10.7 g/dL (13.0-16.5); Lymphocyte # 2.34 X10^3/ul (0.83-4.51); Lymphocyte % 27.1 % (19-41); Mean Corp Hgb Conc 32.6 g/dL (32-36); Mean Corpuscular Hgb 28.6 pg (27.0-32.0); Mean Corpuscular Volume 87.7 fL (80-94); Mean Platelet Vol. 11.6 fl (6.2-12.0); Monocyte# 2.33 X10^3/uL; NRBC Flagged by Analyzer 0 % (0-5); Neutrophil # 3.81 X10^3/uL (2.7-7.7); Neutrophil % 44.3 % (47-70); POSITIVE DIFFERENTIAL YES; Platelet Count 200 K/mm3 (150-450); RBC Distribution Width CV 13.5 % (11.6-14.6); RBC Distribution Width SD 42.9 fl (35.1-43.9); Red Blood Count 3.74 M/mm3 (4.6-6.2); White Blood Count 8.6 K/mm3 (4.4-11.0)
[2023-09-30 06:32] LABS: Differential Indicated SCAN CRITERIA MET
[2023-09-30 06:59] LABS: ALB/GLOB Ratio 0.6 RATIO (0.9-2.4); AST(SGOT) 21 U/L (15-37); Alanine Aminotransfer ALT/SGPT 18 U/L (16-61); Albumin, Serum 2.6 g/dL (3.2-5.0); Alkaline Phosphatase 196 U/L (45-117); Anion Gap 4 (5-15); BUN 28 mg/dL (7-18); BUN/Creat Ratio 25.7 RATIO (10-20); Calcium,Total 8.4 mg/dL (8.5-10.1); Chloride 109 mmol/L (98-107); Creatinine, Serum 1.09 mg/dL (0.70-1.30); EST Glomerular Filtration Rate 68 mL/min (>60); Est Glom Filt Rate - Afr Amer 82 mL/min (>60); Estimated Creatinine Clearance 50.57 ml/min; Globulin 4.5 g/dL (2.2-4.2); Glucose 99 mg/dL (74-106); Magnesium 2.1 mg/dL (1.6-2.6); Phosphorus 4.2 mg/dL (2.5-4.9); Potassium 3.8 mmol/L (3.5-5.1); Protein, Total 7.1 g/dL (6.4-8.2); Sodium Level 136 mmol/L (136-145)
[2023-09-30 07:03] LABS: Differential Comment SCANNED
[2023-09-30] MEDS: Albuterol 2.5 MG/3 ML VIAL.NEB. INHALATION ×3 (07:27→19:31)
[2023-09-30] MEDS: Budesonide Respules 0.5 MG/2 ML AMPUL.NEB. INHALATION ×2 (07:27→19:31)
[2023-09-30] MEDS: Multivitamins,Therapeutic Tablet 1 TABLET PO (08:20)
[2023-09-30] MEDS: Pantoprazole Sodium 40 MG Tablet PO (08:21)
[2023-09-30] MEDS: Donepezil HCl 5 MG Tablet PO (08:21)
[2023-09-30] MEDS: amLODIPine 10 MG Tablet PO (08:21)
[2023-09-30] MEDS: Sertraline 100 MG Tablet PO (08:21)
[2023-09-30] MEDS: Tolterodine Tartrate 4 MG CAP.SA PO (08:21)
--- NOTE | 2023-09-30 10:28 | PCM.PN.HOSP ---
Subjective Subjective Doing well, no issues overnight Objective Data Objective Data Vital Signs: Vital Signs Temp Pulse Resp BP Pulse Ox O2 Del Method FiO2 97.7 F L 68 16 149/64 H 94 Room Air 09/30/23 08:23 09/30/23 08:23 09/30/23 08:23 09/30/23 08:23 09/30/23 08:23 09/30/23 08:23 09/30/23 04:52 Oxygen Delivery Method Room Air Weight: 194 lb 7.163 oz Body Mass Index (BMI) 29.5 Intake & Output: Intake and Output for Last 24 Hours 09/29/23 09/30/23 10/01/23 03:59 03:59 03:59 Intake Total 500 / 500 300 / 300 Output Total 350 / 350 Balance 150 / 150 300 / 300 Lab / Micro Data 09/30/23 06:01 09/30/23 06:01 Labs: Laboratory Results - last 24 hr 09/29/23 21:05: WBC 11.2 H, RBC 4.18 L, Hgb 12.0 L, Hct 36.4 L, MCV 87.1, MCH 28.7, MCHC 33.0, RDW Std Deviation 43.1, RDW Coeff of Perry 13.5, Plt Count 238, MPV 11.6, Immature Gran % (Auto) 0.500, Neut % (Auto) 45.8 L, Lymph % (Auto) 25.5, [place] % (Auto) 27.2 H, Eos % (Auto) 0.7, Baso % (Auto) 0.3, Absolute Neuts (auto) 5.1, Absolute Lymphs (auto) 2.85, Nucleated RBC % 0, Differential Comment SCANNED, Diff Path Review August, Sodium 136, Potassium 4.1, Chloride 105, Carbon Dioxide 23.0, Anion Gap 8, BUN 34 H, Creatinine 1.35 H, Estim Creat Clear Calc 41.60, Est GFR (MDRD) Af Amer 64, Est GFR (MDRD) Non-Af 53 L, BUN/Creatinine Ratio 25.2 H, Glucose 105, Calcium 9.6, TSH 4.20 H 09/29/23 22:24: Urine Color Yellow, Urine Clarity Clear, Urine pH 7.0, Ur Specific [place]sey 1.010, Urine Protein 15 H, Urine Glucose (UA) Normal, Urine Ketones 5 H, Urine Occult Blood Negative, Urine Nitrite Negative, Urine Bilirubin Negative, Urine Urobilinogen Normal, Ur Leukocyte Esterase Negative, Urine RBC 0 SEEN, Urine WBC 0 SEEN, Ur Squamous Epith Cells 0 SEEN, Urine Bacteria 0 SEEN, Urine Mucus 0 SEEN 09/30/23 06:01: WBC 8.6, RBC 3.74 L, Hgb 10.7 L, Hct 32.8 L, MCV 87.7, MCH 28.6, MCHC 32.6, RDW Std Deviation 42.9, RDW Coeff of Perry 13.5, Plt Count 200, MPV 11.6, Immature Gran % (Auto) 0.500, Neut % (Auto) 44.3 L, Lymph % (Auto) 27.1, [place] % (Auto) 27.0 H, Eos % (Auto) 0.9, Baso % (Auto) 0.2, Absolute Neuts (auto) 3.8, Absolute Lymphs (auto) 2.34, Nucleated RBC % 0, Differential Comment SCANNED, Sodium 136, Potassium 3.8, Chloride 109 H, Carbon Dioxide 23.0, Anion Gap 4 L, BUN 28 H, Creatinine 1.09, Estim Creat Clear Calc 50.57, Est GFR (MDRD) Af Amer 82, Est GFR (MDRD) Non-Af 68, BUN/Creatinine Ratio 25.7 H, Glucose 99, Calcium 8.4 L, Phosphorus 4.2, Magnesium 2.1, Total Bilirubin 0.60, AST 21, ALT 18, Alkaline Phosphatase 196 H, Total Protein 7.1, Albumin 2.6 L, Globulin 4.5 H, Albumin/Globulin Ratio 0.6 L Radiography Diagnostic Testing: Radiology Impression Chest X-Ray 09/29/23 21:45 IMPRESSION: Mild basilar atelectasis. Electronically Signed: Alexander Lamas DO at 23:18 EDT Reading Location ID and State: [facility] / [place] Tel [phone], Service support , Physical Exam Narrative General: Alert, Oriented x3, Cooperative, No apparent distress HEENT: Atraumatic, PERRLA, EOMI, Normocephalic Oral: Moist Mucosa Neck: Supple, No JVD Lungs: Diminished, Normal air movement, No rhonchi, No wheeze, No rales Cardiovascular: Regular rate, Regular Rhythm, Normal S1, Normal S2, No murmurs Abdomen: Soft, Non Tender, Non-Distended, No Hepato-splenomegaly Extremities: No edema, Capillary Refill Less than 3 Seconds Skin: No rashes, No breakdown Musculoskeletal: No Tenderness to Palpation of Joints or Extremities Neurological: No focal neurological deficits, Motor Exam 5/5 strength throughout, Sensory exam intact to light touch and pain Psych/Mental Status: Normal Affect, Appropriate Assessment & Plan Assessment/Plan (1) Generalized weakness: (2) Ambulatory dysfunction: (3) Fall: QUALIFIERS: Encounter type: initial encounter Qualified Code(s): W19.XXXA - Unspecified fall, initial encounter (4) Dehydration: (5) Dementia: QUALIFIERS: Dementia type: unspecified type Dementia severity: mild Dementia behavioral or psychological symptom: without behavioral, psychotic, or mood disturbance or anxiety Qualified Code(s): F03.A0 - Unspecified dementia, mild, without behavioral disturbance, psychotic disturbance, mood disturbance, and anxiety PLAN: Plan 1. Generalized weakness and debility with an inability to complete ADLs ? He is mildly dehydrated though renal function is back to baseline, will continue with IV fluids for another 24 hours ? PT/OT ? Will hold donepezil as it does not provide much benefit for dementia and could potentially be leading to his falls though he does indicate a significant history of osteoarthritis ? He is currently in assisted living in [place] ? UA, chest x-ray was unremarkable, afebrile without a leukocytosis so infectious etiology is unlikely 2. Essential HTN/HLD ? Blood pressure stable ? Can resume his home medications ? Continue with Lipitor ? We will monitor make adjustments as necessary 3. COPD ? Currently not in exacerbation ? Continue with inhalers 4. GERD ? Stable ? Continue with PPI 5. Anxiety/depression/dementia ? Stable ? Continue with his home mental health medications ? Will hold donepezil 6. Overactive bladder ? He is on Solifenacin at home ? He was transition to tolterodine here will discontinue DVT: Lovenox Charges/Coding Visit Charges Inpatient E&M: 82525 Subs Hosp L2
--- NOTE | 2023-09-30 12:00 | CASEMGMT ---
BRADLEY SERRATO into pt room, pt sitting up in chair with dtr Linn, sister and son at bedside. Pt agreeable to assessment with them present. Pt is here from an AL in [place]. Address is [facility] Room [address], [address] [place] [address] Rd, [place] [address]. Pt dtr Ana Scruggs is DPOA. Per pt and family present, she has not returned calls from them from last evening. Dtr Linn also attempted while BRADLEY SERRATO in room with no response. Pt is currently in [place] to finish up seeing physicians and complete the selling of his condo. He has a plane ticket to fly home on . Pt is currently staying with sister in her condo while he is in [place] but she states pt is too much for her to handle and he cannot go back there from this hospital stay. Pt has a CPAP, cane and rollator. Pt became unable to trf out of car and had increased weakness while visiting in [place] for 2 wks. Pt family who is present report they are not able to care for pt at their homes and that Ana will need to determine the care for the patient. Therapy has not eval'd pt. TC to therapy who reported they will work with pt next. Plan is for pt to see how he does with therapy, think about if he for sure needs to return to [place] on or if he is willing to obtain further therapy to get stronger prior to returning home. Pt states he will think about this. Updated SW.
--- NOTE | 2023-09-30 12:35 | CASEMGMT ---
BRADLEY CM in to discuss NAIK form with patient. RN CM explained NAIK form, patient voiced understanding. Pt signed form and filed in chart. Pt provided with a copy of signed NAIK form. Patient had no further questions or concerns at this time.
[2023-09-30] MEDS: Acetaminophen 325 MG Tablet 650 MG PO (13:48)
--- NOTE | 2023-09-30 15:27 | CASEMGMT ---
Social Work Handoff from RN CM for possible SNF placement. Patient has most recently been living in an assisted living in [place], and up in [place] taking care of business before returning back to [place] to the assisted living. Patient was slated to return back to [place], via plane, on 10.05.23. Spoke with PT/OT and recommend short term SNF level of care before returning to [place] via plane or vehicle. Generated patient choice list for SNF via [employer] for patient's geographical region to [facility] and in patient's insurance network, including quality and star ratings. Met with patient, patient's sister, and patient's son. Introduced to self and role. Present choice list for SNF preference. Patient agreeable to short term SNF before returning to [place]. Preference is to stay at [facility]. Let patient and family know will want to consider list further in case this policy writer finds on Monday that TCU not able to accept patient. Son did ask about next steps should patient improve over weekend and no longer need SNF level of care. Educated that Care Management would then revisit viable options for aftercare. At this time however, all in room are in agreement with SNF, short term. Referral to Lacey in admissions at [facility]. Plan: Anticipate short term SNF, referral pending at [facility]. SW to follow. -MAGDALENA Muro
--- NOTE | 2023-09-30 15:33 | CASEMGMT ---
Social Work - SDOH screening. This teletypewriter operator did not complete SDOH screening with patient when talking about SNF as family was present. Family planned to leave shortly after so this teletypewriter operator planned to return for 1:1, however a new set of visitors in room when SW went back to room. SW continue to follow for SDOH screening. -MAGDALENA Muro
[2023-09-30] MEDS: oxyCODONE 5 MG Tablet PO (15:53)
[2023-09-30] MEDS: Atorvastatin Calcium 10 MG Tablet PO (19:58)
[2023-09-30] MEDS: MELATONIN 3 MG TABLET PO (19:58)
[2023-10-01] VITALS (11 sets, daily range): BP systolic 117–157; BP diastolic 61–76; PULSE 66–85; RESP 16–20; TEMP 36.3–36.9; O2SAT 94–98; BMI 30.3
[2023-10-01] MEDS: Acetaminophen 325 MG Tablet 650 MG PO ×2 (01:06→20:03)
[2023-10-01] MEDS: Enoxaparin 40 MG/0.4 ML Syringe SC (04:19)
[2023-10-01] MEDS: 0.9% Normal Saline (1000mL) 1,000 ML 70 ML IV (04:21)
[2023-10-01] MEDS: oxyCODONE 5 MG Tablet PO ×2 (04:24→22:17)
[2023-10-01 06:31] LABS: Absolute Lymphocyte Count 1.86 X10^3/uL (0.83-4.51); Absolute Neutrophil Count 4.8 X10^3/uL (2.0-7.7); Basophil# 0.04 X10^3/uL; Basophil% 0.4 % (0-1); Eosinophil# 0.13 X10^3/uL; Eosinophils% 1.4 % (0-5); Hematocrit 31.5 % (40-54); Hemoglobin 10.1 g/dL (13.0-16.5); Lymphocyte # 1.86 X10^3/ul (0.83-4.51); Lymphocyte % 20.5 % (19-41); Mean Corp Hgb Conc 32.1 g/dL (32-36); Mean Corpuscular Hgb 28.8 pg (27.0-32.0); Mean Corpuscular Volume 89.7 fL (80-94); Mean Platelet Vol. 11.6 fl (6.2-12.0); Monocyte# 2.16 X10^3/uL; Monocyte% 23.8 % (0-10); NRBC Flagged by Analyzer 0 % (0-5); Neutrophil # 4.84 X10^3/uL (2.7-7.7); Neutrophil % 53.3 % (47-70); POSITIVE DIFFERENTIAL YES; Platelet Count 190 K/mm3 (150-450); RBC Distribution Width CV 13.5 % (11.6-14.6); Red Blood Count 3.51 M/mm3 (4.6-6.2); White Blood Count 9.1 K/mm3 (4.4-11.0)
[2023-10-01 06:38] LABS: Differential Indicated SCAN CRITERIA MET
[2023-10-01 07:04] LABS: Anion Gap 6 (5-15); BUN 20 mg/dL (7-18); BUN/Creat Ratio 24.4 RATIO (10-20); Calcium,Total 8.3 mg/dL (8.5-10.1); Chloride 112 mmol/L (98-107); Creatinine, Serum 0.82 mg/dL (0.70-1.30); EST Glomerular Filtration Rate 95 mL/min (>60); Est Glom Filt Rate - Afr Amer 114 mL/min (>60); Glucose 104 mg/dL (74-106); Potassium 3.7 mmol/L (3.5-5.1); Sodium Level 139 mmol/L (136-145)
[2023-10-01] MEDS: Albuterol 2.5 MG/3 ML VIAL.NEB. INHALATION ×3 (07:18→19:13)
[2023-10-01] MEDS: Budesonide Respules 0.5 MG/2 ML AMPUL.NEB. INHALATION ×2 (07:18→19:13)
[2023-10-01] MEDS: Multivitamins,Therapeutic Tablet 1 TABLET PO (07:47)
[2023-10-01] MEDS: Pantoprazole Sodium 40 MG Tablet PO (07:48)
[2023-10-01] MEDS: Sertraline 100 MG Tablet PO (07:48)
[2023-10-01] MEDS: amLODIPine 10 MG Tablet PO (07:48)
[2023-10-01 09:40] LABS: Differential Comment SCANNED
--- NOTE | 2023-10-01 12:14 | PCM.PN.HOSP ---
Reason for Visit Reason for Visit: Diagnoses Dehydration (09/30/23) Unspecified dementia, mild, without behavioral disturbance, psychotic disturbance, mood disturbance, and anxiety (09/30/23) Difficulty in walking, not elsewhere classified (09/30/23) Weakness (09/30/23) Unspecified fall, initial encounter (09/30/23) Subjective Subjective Continues to be somewhat weak overall and has been having osteoarthritis pain. [place] a little short of breath earlier in the day but is feeling better now, does report compliance with the CPAP at bedside Objective Data Objective Data Vital Signs: Vital Signs Temp Pulse Resp BP Pulse Ox O2 Del Method FiO2 97.5 F L 74 16 139/63 H 98 Room Air 10/01/23 11:26 10/01/23 11:10/01/23 11:10/01/23 11:10/01/23 11:10/01/23 11:10/01/23 04:45 Oxygen Delivery Method Room Air Weight: 90.7 kg Body Mass Index (BMI) 30.3 Intake & Output: Intake and Output for Last 24 Hours 09/29/23 09/30/23 10/01/23 23:59 23:59 23:59 Intake Total 500 / 500 1267.17 / 1267.17 1576 / 1576 Output Total 350 / 350 Balance 150 / 150 1267.17 / 1267.17 1576 / 1576 Lab / Micro Data 10/01/23 05:59 10/01/23 05:59 Labs: Laboratory Results - last 24 hr 10/01/23 05:59: WBC 9.1, RBC 3.51 L, Hgb 10.1 L, Hct 31.5 L, MCV 89.7, MCH 28.8, MCHC 32.1, RDW Std Deviation 44.0 H, RDW Coeff of Perry 13.5, Plt Count 190, MPV 11.6, Immature Gran % (Auto) 0.600, Neut % (Auto) 53.3, Lymph % (Auto) 20.5, [place] % (Auto) 23.8 H, Eos % (Auto) 1.4, Baso % (Auto) 0.4, Absolute Neuts (auto) 4.8, Absolute Lymphs (auto) 1.86, Nucleated RBC % 0, Differential Comment SCANNED, Sodium 139, Potassium 3.7, Chloride 112 H, Carbon Dioxide 21.0, Anion Gap 6, BUN 20 H, Creatinine 0.82, Estim Creat Clear Calc 68.10, Est GFR (MDRD) Af Amer 114, Est GFR (MDRD) Non-Af 95, BUN/Creatinine Ratio 24.4 H, Glucose 104, Calcium 8.3 L Physical Exam Narrative General: Alert, oriented, no apparent distress HEENT: Atraumatic, normocephalic Eyes: Anicteric, normal conjunctiva, extraocular movements grossly intact Neck: Supple Respiratory: Clear to auscultation bilaterally, normal respiratory effort Cardiovascular: Regular rate and rhythm GI: Soft, nontender, nondistended Extremities: No edema Musculoskeletal: Moving all extremities Neuro: No overt focal neurological deficits Skin: No rashes appreciated Psych: Cooperative Assessment & Plan Assessment/Plan (1) Ambulatory dysfunction: (2) COPD exacerbation: (3) Hypertension: QUALIFIERS: Hypertension type: essential hypertension Qualified Code(s): I10 - Essential (primary) hypertension (4) VERONICA (obstructive sleep apnea): PLAN: Plan 1. Generalized weakness and debility with an inability to complete ADLs ? He is mildly dehydrated though renal function is back to baseline, will continue with IV fluids for another 24 hours ? PT/OT ? Will hold donepezil as it does not provide much benefit for dementia and could potentially be leading to his falls though he does indicate a significant history of osteoarthritis ? He is currently in assisted living in [place] ? UA, chest x-ray was unremarkable, afebrile without a leukocytosis so infectious etiology is unlikely -09/30: Continue to work with PT/OT, likely for placement, continue to monitor pain/pain control #VERONICA -Continue CPAP at bedside 2. Essential HTN/HLD ? Blood pressure stable ? Can resume his home medications ? Continue with Lipitor ? We will monitor make adjustments as necessary -09/30: Continue amlodipine 10 mg 3. COPD ? Currently not in exacerbation ? Continue with inhalers -09/30: On budesonide and albuterol, any further breathing complaints can consider ipratropium addition but does not appear to take this at home 4. GERD ? Stable ? Continue with PPI 5. Anxiety/depression/dementia ? Stable ? Continue with his home mental health medications ? Will hold donepezil 6. Overactive bladder ? He is on Solifenacin at home ? He was transition to tolterodine here will discontinue #DVT ppx: Lovenox subcu Viola Corley MD Time spent in the patient's overall evaluation,decision-making process, review of diagnostic data, adjustment of management, discussion with other providers, nursing nursing and ancillary staff involved in patient's care documentation, 30 minutes Charges/Coding Visit Charges Inpatient E&M: 72944 Subs Hosp L1
[2023-10-01] MEDS: MELATONIN 10 MG TABLET PO (22:17)
[2023-10-01] MEDS: Atorvastatin Calcium 10 MG Tablet PO (22:17)
[2023-10-02] VITALS (10 sets, daily range): BP systolic 131–152; BP diastolic 55–77; PULSE 58–75; RESP 14–28; TEMP 36.4–37.1; O2SAT 92–100; BMI 30.2
[2023-10-02] MEDS: Enoxaparin 40 MG/0.4 ML Syringe SC (05:23)
[2023-10-02] MEDS: amLODIPine 10 MG Tablet PO (09:01)
[2023-10-02] MEDS: Pantoprazole Sodium 40 MG Tablet PO (09:01)
[2023-10-02] MEDS: Acetaminophen 325 MG Tablet 650 MG PO ×2 (09:02→21:50)
[2023-10-02] MEDS: Multivitamins,Therapeutic Tablet 1 TABLET PO (09:02)
[2023-10-02] MEDS: Sertraline 100 MG Tablet PO (09:02)
[2023-10-02] MEDS: oxyCODONE 5 MG Tablet PO ×2 (09:02→21:50)
[2023-10-02] MEDS: Budesonide Respules 0.5 MG/2 ML AMPUL.NEB. INHALATION ×2 (09:30→19:28)
--- NOTE | 2023-10-02 09:36 | CPS ---
Patient did not want Albuterol because he said it gave him the shakes.
--- NOTE | 2023-10-02 10:14 | CASEMGMT ---
Addendum entered by Jeanne Mares 10/02/23 10:37: Social Work SW updated pt that SW sent information to the AL to see if they can take pt back. If they cannot we will work on pt going somewhere for rehab initially. Pt states understanding, does state would want to go to TCU if rehab needed. SW awaiting a call back from [facility]. ANA ROSA Arellano Original Note: Social Work SW spoke w/pt in room, pt's sister is present. Pt confirms plan is to return to [place] tomorrow to his assisted living. SW asked if there is a daughter that helps him w/medical decisions, he states Ana helps, he is agreeable to SW calling Ana. SW called Ana, asked her about discharge plan. She states that pt had just moved to the AL in [place] 4 days prior to coming up to [place]. Pt came up here and is now in the hospital. Ana confirms the plan is for pt to return to the AL in [place], as long as his brother and [id number] can take him tomorrow; she is still trying to get clarification on this. SW reviewed therapy notes w/Ana to inquire if she knows if pt is moving well enough to return to the assisted living. Pt's daughter states this is the first she is hearing that pt may not be strong enough to return. SW explained can reach out to the AL and let them tell us if they think pt is strong enough. Daughter is in agreement w/this. She states pt also had some home health with [facility], was wondering if he is strong enough if the therapy could be increased to 5 days per week. SW educated daughter that generally speaking, home health is only 2-3 days per week, regardless of the setting. Daughter gave SW the name and number of the [facility], it's [facility], . SW called [facility], spoke w/Giovanna, the director hris. SW explained to her the situation, she is in agreement w/reviewing the clinical information to see if they can take pt back. SW faxed all the clinical information, will continue to follow. ANA ROSA Arellano
--- NOTE | 2023-10-02 10:41 | PCM.PN.HOSP ---
Reason for Visit Reason for Visit: Diagnoses Dehydration (09/30/23) Unspecified dementia, mild, without behavioral disturbance, psychotic disturbance, mood disturbance, and anxiety (09/30/23) Obstructive sleep apnea (adult) (pediatric) (09/30/23) Essential (primary) hypertension (09/30/23) Chronic obstructive pulmonary disease with (acute) exacerbation (09/30/23) Difficulty in walking, not elsewhere classified (09/30/23) Weakness (09/30/23) Unspecified fall, initial encounter (09/30/23) Subjective Subjective Patient slowly continues to feel better, denies problems with his breathing, presently only feeling cold in the room but no other complaints Objective Data Objective Data Vital Signs: Vital Signs Temp Pulse Resp BP Pulse Ox O2 Del Method FiO2 97.6 F L 64 15 152/71 H 100 Room Air 21 10/02/23 10:00 10/02/23 10:00 10/02/23 10:00 10/02/23 10:00 10/02/23 10:00 10/02/23 10:00 10/02/23 04:38 Oxygen Delivery Method Room Air Weight: 90.4 kg Body Mass Index (BMI) 30.2 Intake & Output: Intake and Output for Last 24 Hours 09/30/23 10/01/23 10/02/23 23:59 23:59 23:59 Intake Total 1267.17 / 1267.17 2025 Balance 1267.17 / 1267.17 2025 Lab / Micro Data 10/01/23 05:59 10/01/23 05:59 Physical Exam Narrative General: Alert, oriented, no apparent distress HEENT: Atraumatic, normocephalic Eyes: Anicteric, normal conjunctiva, extraocular movements grossly intact Neck: Supple Respiratory: Clear to auscultation bilaterally, normal respiratory effort Cardiovascular: Regular rate and rhythm GI: Soft, nontender, nondistended Extremities: No edema Musculoskeletal: Moving all extremities Neuro: No overt focal neurological deficits Skin: No rashes appreciated Psych: Cooperative Assessment & Plan Assessment/Plan (1) Ambulatory dysfunction: (2) COPD exacerbation: (3) Hypertension: QUALIFIERS: Hypertension type: essential hypertension Qualified Code(s): I10 - Essential (primary) hypertension (4) VERONICA (obstructive sleep apnea): PLAN: Plan 1. Generalized weakness and debility with an inability to complete ADLs ? He is mildly dehydrated though renal function is back to baseline, will continue with IV fluids for another 24 hours ? PT/OT ? Will hold donepezil as it does not provide much benefit for dementia and could potentially be leading to his falls though he does indicate a significant history of osteoarthritis ? He is currently in assisted living in [place] ? UA, chest x-ray was unremarkable, afebrile without a leukocytosis so infectious etiology is unlikely -09/30: Continue to work with PT/OT, likely for placement, continue to monitor pain/pain control -10/01: Has been improving however still would benefit from additional help. Family wants him to go back to [place] but given his level of assistance information faxed to his assisted living to see if he is appropriate to return there or if he will need placement here prior to returning. #VERONICA -Continue CPAP at bedside -10/01: Continues to use, stable 2. Essential HTN/HLD ? Blood pressure stable ? Can resume his home medications ? Continue with Lipitor ? We will monitor make adjustments as necessary -09/30: Continue amlodipine 10 mg -10/01: Remains elevated, lisinopril started 3. COPD ? Currently not in exacerbation ? Continue with inhalers -09/30: On budesonide and albuterol, any further breathing complaints can consider ipratropium addition but does not appear to take this at home -10/01: Reports breathing with no complaints today 4. GERD ? Stable ? Continue with PPI 5. Anxiety/depression/dementia ? Stable ? Continue with his home mental health medications ? Will hold donepezil -10/01: Alert and oriented, no complaints 6. Overactive bladder ? He is on Solifenacin at home ? He was transition to tolterodine here will discontinue -10/01: Denies any urination problems #DVT ppx: Lovenox subcu Viola Corley MD Time spent in the patient's overall evaluation,decision-making process, review of diagnostic data, adjustment of management, discussion with other providers, nursing nursing and ancillary staff involved in patient's care documentation, 35 minutes Charges/Coding Visit Charges Inpatient E&M: 26212 Subs Hosp L2
[2023-10-02] MEDS: Lisinopril 5 MG Tablet PO (11:18)
--- NOTE | 2023-10-02 12:49 | CASEMGMT ---
Addendum entered by Jeanne Mares 10/02/23 15:52: Social Work Pt's daughter Ana called to check on the plan. SW explained pt did move better w/therapy, called the AL and faxed over the latest notes, waiting for a call back. She is going to call also and try to get a hold of the hadoop administrator. SW will continue to follow, waiting for a call back from AL. In the interim, TCU is looking to get precert. SW awaiting call back from the AL. ANA ROSA Arellano Addendum entered by Jeanne Mares 10/02/23 14:58: Social Work SW called [facility], message left for Giovanna to call SW, and updated PT/OT notes faxed. ANA ROSA Arellano Original Note: Social Work Pt's daughter called back. She states that pt's son Jaya is here and says pt is moving the same as he was moving before coming to the hospital. She also states she spoke w/the hadoop administrator earlier today at the AL, Kayleen, who had indicated that pt could return to AL but possibly at a higher level of care. She then told Ana that it would be up to the RN however(Giovanna). SW explained we can see how pt does with therapy and can send them again to AL to see what they think. SW explained as per Giovanna, she felt pt would benefit from some rehab before returning. SW explained we ar trying to avoid pt getting to the AL and they cannot manage pt's care. SW explained will speak w/Jaya. SW spoke w/son Jaya in the hallway in regard to plan. He explained to SW that he does not think pt needs rehab or that it would help much. He states he thinks pt is at his baseline. ERNESTO explained to Jaya that SW sent the therapy notes to the AL and the RN reviewed, and saying pt would benefit from rehab. SW explained we can see how therapy goes today and send this to AL and see what they think today. Son states understanding. SW awaiting PT notes from today, will then call AL and send PT/OT from today. ANA ROSA Arellano
[2023-10-02 13:36] LABS: Pathologist Review Reviewed
--- NOTE | 2023-10-02 16:22 | CASEMGMT ---
Social Work SW spoke w/Giovanna at [facility], they are willing to take pt back tomorrow, would like d/c instructions and summary faxed. Also pt was getting HHC through [facility], phone number is [phone]. SW called [facility], the number for the office for his home health is [phone], fax is [phone]. They do not need an order since pt is here observation, though daughter had said they want PT notes, SW offered to fax them, they are agreeable. SW faxed over therapy notes and evals to [facility]. SW notified physician plan is again back to AL in the morning. SW let TCU know as well. SW called daughter, let her know SW spoke w/Giovanna and they are agreeable to take pt back to AL, daughter also in agreement. SW will continue to follow for discharge back to AL tomorrow. ANA ROSA Arellano
[2023-10-02] MEDS: MELATONIN 10 MG TABLET PO (21:50)
[2023-10-02] MEDS: Atorvastatin Calcium 10 MG Tablet PO (21:50)
[2023-10-03 01:12] VITALS: PULSE 54; RESP 16; O2SAT 97
[2023-10-03 04:00] VITALS: BP 136/58; PULSE 62; RESP 18; TEMP 36.9; O2SAT 98
[2023-10-03 04:32] VITALS: PULSE 61; RESP 20; O2SAT 98
[2023-10-03] MEDS: Enoxaparin 40 MG/0.4 ML Syringe SC (06:15)
[2023-10-03 07:14] VITALS: BP 144/83; PULSE 62; RESP 15; TEMP 36.6; O2SAT 98
--- NOTE | 2023-10-03 07:14 | DS.PCM_ITS ---
Providers Date of Admission: 09/30/23 Date of Discharge: 10/03/23 Primary Care Physician: No Primary Care Phys Reason For Visit: GENERALIZED WEAKNESS WITH AMBULATORY DYSFUNCTION Diagnosis Discharge Diagnosis (1) Ambulatory dysfunction: Status: Acute Code(s): R26.2 - Difficulty in walking, not elsewhere classified (2) COPD exacerbation: Status: Chronic Code(s): J44.1 - Chronic obstructive pulmonary disease with (acute) exacerbation (3) Hypertension: Status: Chronic Code(s): I10 - Essential (primary) hypertension Qualifiers: Hypertension type: essential hypertension Qualified Code(s): I10 - Essential (primary) hypertension (4) VERONICA (obstructive sleep apnea): Status: Acute Code(s): G47.33 - Obstructive sleep apnea (adult) (pediatric) Plan 1. Generalized weakness and debility with an inability to complete ADLs #VERONICA 2. Essential HTN/HLD 3. COPD 4. GERD 5. Anxiety/depression/dementia 6. Overactive bladder Medications at Discharge Home Medications pantoprazole 40 mg tablet,delayed release 40 mg PO DAILY stomach 01/26/16 fluticasone furoate 200 mcg-vilanterol 25 mcg/dose inhalation powder (Breo Ellipta) 1 inh inhalation QDAY sob 06/02/17 multivitamin 1 tab PO QDAY supplement 06/02/17 sertraline 100 mg tablet 100 mg PO DAILY depression 03/20/20 acetaminophen 500 mg capsule 1,000 mg PO Q8H PRN pain 09/29/23 albuterol sulfate 2.5 mg/3 mL (0.083 %) solution for nebulization 2.5 mg inhalation Q8H sob 09/29/23 amlodipine 10 mg tablet 10 mg PO DAILY bp 09/29/23 atorvastatin 10 mg tablet 10 mg PO DAILY hld 09/29/23 cetirizine 10 mg capsule (All Day Allergy (cetirizine)) 10 mg PO DAILY PRN allergy symptoms 09/29/23 fluticasone 500 mcg-salmeterol 50 mcg/dose blistr powdr for inhalation (Wixela Inhub) 1 ea inhalation BID sob 09/29/23 lisinopril 5 mg tablet 5 mg PO DAILY 30 days #30 tabs 10/03/23 Hospital Course Summary of Care Provided Minutes Spent on Discharge: 32 Hospital Course: Patient is an 88-year-old male with history of hypertension, VERONICA, cognitive impairment, history of lung and prostate and bladder cancers status posttreatment and overactive bladder as well as GERD and OA who presented to [facility] ED 09/29/2023 due to generalized weakness and fall. He is presently visiting from [place] where he staying with one of his daughters and was up visiting and lost balance and fell onto his knees and was unable to stand up on his own. Patient presented to ED and given his weakness patient not safe to go home so hospitalist contacted for admission. His donepezil and Solifenacin were held on admission due to concerns that could be contributing. Patient appeared slightly dehydrated as well and was given IV fluids. He did improve overall but not back to his baseline and it was felt he would need additional assistance so appropriate planning was made. Patient had no new or acute complaints on day of discharge. Discharge instructions as followed: - Your donepezil was held on admission due to concerns that this could have contributed to your presentation, you have done well off of this so this will be held on discharge, your Solifenacin was also held for this reason. Resume at the discretion of your prescribing physician -You have been started on lisinopril 5 mg daily to help better control your blood pressure -Please call your primary care provider's office upon discharge to schedule a hospital follow up within 1 week. -For any concerning signs or symptoms please call 911 or proceed to the nearest emergency department Physical Exam Narrative General: Alert, oriented, no apparent distress HEENT: Atraumatic, normocephalic Eyes: Anicteric, normal conjunctiva, extraocular movements grossly intact Neck: Supple Respiratory: Clear to auscultation bilaterally, normal respiratory effort Cardiovascular: Regular rate and rhythm GI: Soft, nontender, nondistended Extremities: No edema Musculoskeletal: Moving all extremities Neuro: No overt focal neurological deficits Skin: No rashes appreciated Psych: Cooperative Weight / BMI Weight Weight: 90.4 kg Body Mass Index (BMI) 30.2 ABG / Lab / Microbiology Data 10/01/23 05:59 10/01/23 05:59 Laboratory: Laboratory Results - last 24 hr 09/29/23 21:05: Diff Path Review Reviewed D/C Instructions Discharge Diet: - (Cardiac diet) Meaningful Use Info Meaningful Use Meaningful Use Diagnoses (Choose all that apply): None applicable Ischemic Stroke Statin Dosing Therapy Reference: STATIN DOSE THERAPY REFERENCE: * Patients > 75 years receive moderate or high dose statin therapy. * Patients 75 years or YOUNGER should receive HIGH intensity statin dose unless contraindicated. You will be required to document reason for non-treatment if statin daily dose does not meet guidelines. HIGH DOSE STATIN THERAPY DAILY Atorvastatin > than or = to 40 mg Rosuvastatin > than or = to 20 mg Amlodipine + Atorvastatin > than or = to 2.5/40 mg Ezetimibe + Simvastatin 10/80 mg Simvastatin 80mg Discharge Plan Admission Admit Date/Time: 09/30/23 00:24 Primary Reason for Your Visit: Generalized weakness and fall Attending Provider: Viola Corley Primary Care Provider: Care Physician,No Primary Consulting Providers: Misha Yeh; Jonny Lemon Instructions Patient Instructions: ED Fall Prevention Additional Instructions / Restrictions: DISCHARGE INSTRUCTIONS PLEASE READ *Please take this with you to your next doctors appointment* - Your donepezil was held on admission due to concerns that this could have contributed to your presentation, you have done well off of this so this will be held on discharge, your Solifenacin was also held for this reason. Resume at the discretion of your prescribing physician -You have been started on lisinopril 5 mg daily to help better control your blood pressure -Please call your primary care provider's office upon discharge to schedule a hospital follow up within 1 week. -For any concerning signs or symptoms please call 911 or proceed to the nearest emergency department Discharge Orders/Prescriptions Prescriptions: New lisinopril 5 mg Tablet 5 mg PO DAILY 30 Days Qty: 30 0RF Continued fluticasone furoate-vilanterol [Breo Ellipta] 200-25 mcg/dose blister with device 1 inh INHALATION QDAY Patient Comments: strength change 100mcg/25mcg multivitamin tablet 1 tab PO QDAY sertraline 100 mg tablet 100 mg PO DAILY pantoprazole 40 MG tablet 40 mg PO DAILY amlodipine 10 mg tablet 10 mg PO DAILY atorvastatin 10 mg tablet 10 mg PO DAILY All Day Allergy (cetirizine) 10 mg capsule 10 mg PO DAILY PRN (Reason: allergy symptoms) acetaminophen 500 mg capsule 1,000 mg PO Q8H PRN (Reason: pain) albuterol sulfate 2.5 mg /3 mL (0.083 %) solution for nebulization 2.5 mg inhalation Q8H fluticasone propion-salmeterol [Wixela Inhub] 500-50 mcg/dose blister with device 1 ea INHALATION BID Discontinued simvastatin 40 MG tablet 40 mg PO QHS albuterol sulfate 1.25 mg/3 mL solution for nebulization 1.25 mg INHALATION ONCE PRN (Reason: SOB) donepezil 5 mg tablet 5 mg PO DAILY solifenacin 10 mg tablet 10 mg PO DAILY Patient Comments: TAKE ONE Tablet BY MOUTH IN THE MORNING. SWALLOW WHOLE Tablet; DO NOT CRUSH,CHEW OR SPLIT Referrals / Follow Up: Alin Finley MD [Med Staff - Active Staff] - Within 1 Week Care Physician,No Primary [Primary Care Provider] - Disposition Disposition (needs filled in before D/C Order can be placed): Assisted Living Charges/Coding Visit Charges Inpatient E&M: 31452 Disch Hosp >30min
[2023-10-03] MEDS: Pantoprazole Sodium 40 MG Tablet PO (07:48)
[2023-10-03] MEDS: Sertraline 100 MG Tablet PO (07:48)
[2023-10-03] MEDS: amLODIPine 10 MG Tablet PO (07:48)
[2023-10-03] MEDS: Lisinopril 5 MG Tablet PO (07:48)
[2023-10-03] MEDS: Multivitamins,Therapeutic Tablet 1 TABLET PO (07:48)
[2023-10-03] MEDS: oxyCODONE 5 MG Tablet PO (07:57)
[2023-10-03] MEDS: Acetaminophen 325 MG Tablet 650 MG PO (07:57)
--- NOTE | 2023-10-03 08:34 | CASEMGMT ---
Social Work Pt is discharged to his AL in [place], [facility]. ERNESTO faxed all discharge instructions and summary to both [facility] and to pt's home health in [facility]. Son is here to take pt back. No further needs anticipated at this time. ANA ROSA Arellano
== END 2023-10-03 08:45 | disposition home or self-care (01) ==
LOC: ED 22:27 → MS3 09-30 00:50
PROVIDERS: Family Medicine; Admitting Provider Internal Medicine; Emergency Provider Emergency Medicine; Visit Provider Internal Medicine
DX: J44.1 Chronic obstructive pulmonary disease with (acute) exacerbation (principal); F03.A0 Unspecified dementia, mild, without behavioral disturbance, psychotic disturbance, mood disturbance, and anxiety; R53.81 Other malaise; I10 Essential (primary) hypertension; N32.81 Overactive bladder; I45.10 Unspecified right bundle-branch block; E86.0 Dehydration; R26.2 Difficulty in walking, not elsewhere classified; I25.10 Atherosclerotic heart disease of native coronary artery without angina pectoris; Z79.51 Long term (current) use of inhaled steroids; G47.33 Obstructive sleep apnea (adult) (pediatric); E78.2 Mixed hyperlipidemia; Z87.891 Personal history of nicotine dependence; M19.90 Unspecified osteoarthritis, unspecified site; Z79.899 Other long term (current) drug therapy; R53.1 Weakness; E66.9 Obesity, unspecified; Z68.30 Body mass index [BMI] 30.0-30.9, adult; Z91.81 History of falling; F32.A Depression, unspecified; K21.9 Gastro-esophageal reflux disease without esophagitis; F41.9 Anxiety disorder, unspecified
CPT/HCPCS: 36415; 71045; 80048; 80053; 81001; 83735; 84100; 84443; 85025; 93005; 94640; 94660; 94668; 94762; 96372; 97162; 97166; 97530; 97535; 99221; 99285; J7030; J7040; G0378